=== PATIENT | male | born 1945 | race Caucasian/White ===

== ENCOUNTER 2018-06-19 18:11 | Outpatient (REF) | payer OTHER, SELFPAY | END 2018-06-19 18:31 | LOC: NCHCN 18:11 | PROVIDERS: PCP Family Medicine; Visit Provider Physician Assistant Medical | DX: R35.0 Frequency of micturition (principal); N40.0 Benign prostatic hyperplasia without lower urinary tract symptoms | CPT/HCPCS: 87086 ==

== ENCOUNTER 2018-12-30 08:44 | Outpatient (REF) | payer OTHER, SELFPAY ==
[2018-12-30 21:05] LABS: Anion Gap 6.4 mmol/L (3-11); BUN 33 mg/dL (7-18); CO2 31.6 mmol/L (21.0-32.0); CREATININE 1.23 mg/dL (0.70-1.30); Calcium 9.2 mg/dL (8.5-10.1); Chloride 104 mmol/L (98-107); Estimated GFR 57.68 (mL/min/1.73m2); Glucose 113 mg/dL (70-100); Sodium 142 mmol/L (136-145)
== END 2018-12-30 09:04 ==
LOC: NCHCN 08:44
PROVIDERS: PCP Family Medicine; Visit Provider Physician Assistant Medical
DX: I10 Essential (primary) hypertension (principal)
CPT/HCPCS: 80048

== ENCOUNTER 2019-05-26 12:35 | Outpatient (REF) | payer OTHER, SELFPAY ==
[2019-05-26 20:15] LABS: BUN 34 mg/dL (7-18); CREATININE 1.19 mg/dL (0.70-1.30); Chloride 106 mmol/L (98-107); Estimated GFR 59.76 (mL/min/1.73m2); Glucose 90 mg/dL (70-100); Potassium 4.3 mmol/L (3.5-5.1); Sodium 144 mmol/L (136-145)
[2019-05-28 11:23] LABS: PSA, Diagnostic 11.6 ng/ml (0-6.5)
== END 2019-05-26 12:55 ==
LOC: NCHCN 12:35
PROVIDERS: PCP Family Medicine; Visit Provider Nurse Practitioner Family
DX: N40.1 Benign prostatic hyperplasia with lower urinary tract symptoms (principal); I10 Essential (primary) hypertension
CPT/HCPCS: 80048; 84153

== ENCOUNTER 2020-02-29 10:22 | Outpatient (REF) | payer OTHER, SELFPAY | END 2020-02-29 10:42 | LOC: NCHCN 10:22 | PROVIDERS: PCP Family Medicine; Visit Provider Nurse Practitioner Family | DX: R31.9 Hematuria, unspecified (principal) | CPT/HCPCS: 87086 ==

== ENCOUNTER 2020-08-09 11:16 | Outpatient (REF) | payer OTHER, SELFPAY ==
[2020-08-10 19:13] LABS: PSA, Diagnostic 6.6 ng/mL (0.0-6.5)
== END 2020-08-09 11:36 ==
LOC: LBN 11:16
PROVIDERS: PCP Family Medicine; Visit Provider Urology
DX: R97.20 Elevated prostate specific antigen [PSA] (principal)
CPT/HCPCS: 84153

== ENCOUNTER 2020-08-15 21:00 | Outpatient (REF) | payer OTHER, SELFPAY | END 2020-08-15 21:20 | LOC: NCHCN 21:00 | PROVIDERS: PCP Family Medicine; Visit Provider Physician Assistant | DX: R31.9 Hematuria, unspecified (principal) | CPT/HCPCS: 87077; 87086; 87186 ==

== ENCOUNTER 2021-03-06 14:17 | Outpatient (REF) | payer OTHER, SELFPAY ==
[2021-03-06 18:46] LABS: Abs Immature Grans 0.03 10^3/uL (0.0-0.06); Absolute Basophil Count 0.05 10^3/uL (0.0-0.2); Absolute Eosinophil Count 0.31 10^3/uL (0.0-0.7); Absolute Lymphocyte Count 1.47 10^3/uL (1.2-3.4); Absolute Neutrophil Count 4.48 10^3/uL (1.2-6.7); Basophils % 0.7; Eosinophils % 4.5; HCT 48.5 % (40.0-50.0); HGB 16.4 g/dL (13.5-17.5); Immature Grans % 0.4; Lymphocytes % 21.5; MCH 30.3 pg (27.0-33.0); MCHC 33.8 % (32.0-36.0); MCV 89.5 fL (80-95); MPV 9.2 fL (8.0-11.0); Monocytes % 7.3; Neutrophils % 65.6; Nucleated RBC 0 %; Platelet Count 234 10^3/uL (130-400); RBC 5.42 10^6/uL (4.36-5.78); RDW 13.7 % (11.8-14.1); RDW-SD 45.3 fL; WBC 6.84 10^3/uL (4.4-10.8)
[2021-03-06 18:58] LABS: BUN 29 mg/dL (7-18); CREATININE 1.1 mg/dL (0.70-1.30); Calcium 9.1 mg/dL (8.5-10.1); Chloride 106 mmol/L (98-107); Glucose 144 mg/dL (74-106); LDL CHOLESTEROL 134 mg/dL (<100); Potassium 3.8 mmol/L (3.5-5.1); Sodium 144 mmol/L (136-145)
== END 2021-03-06 14:18 | disposition home or self-care (01) ==
LOC: NCHCN 14:17
PROVIDERS: PCP Family Medicine; Visit Provider Physician Assistant
DX: I10 Essential (primary) hypertension (principal)
CPT/HCPCS: 80048; 83721; 85025

== ENCOUNTER 2022-03-20 16:17 | Outpatient (REF) | payer OTHER, SELFPAY ==
[2022-03-20 19:26] LABS: BUN 29 mg/dL (7-18); CREATININE 1.2 mg/dL (0.70-1.30); Calcium 9.4 mg/dL (8.5-10.1); Chloride 103 mmol/L (98-107); Estimated GFR 58.71 (mL/min/1.73m2); Glucose 109 mg/dL (74-106); Potassium 4.1 mmol/L (3.5-5.1); Sodium 141 mmol/L (136-145)
== END 2022-03-20 16:18 | disposition home or self-care (01) ==
LOC: NCHCN 16:17
PROVIDERS: PCP Family Medicine; Visit Provider Physician Assistant
DX: I10 Essential (primary) hypertension (principal)
CPT/HCPCS: 80048

== ENCOUNTER 2023-03-21 11:10 | Outpatient (REF) | payer OTHER, SELFPAY ==
[2023-03-21 20:31] LABS: ALT 25 U/L (16-63); AST 23 U/L (15-37); Albumin 3.5 g/dL (3.4-5.0); Alkaline Phosphatase 56 U/L (46-116); Anion Gap 5.6 mmol/L (3-11); BUN 29 mg/dL (7-18); Bilirubin, Total 0.4 mg/dL (0.2-1.0); CO2 30.4 mmol/L (21.0-32.0); CREATININE 1.3 mg/dL (0.70-1.30); Calcium 9.7 mg/dL (8.5-10.1); Chloride 106 mmol/L (98-107); Estimated GFR 56.23 (mL/min/1.73m2); Glucose 104 mg/dL (74-106); Sodium 142 mmol/L (136-145); Total Protein 6.6 g/dL (6.4-8.2)
== END 2023-03-21 11:11 | disposition home or self-care (01) ==
LOC: NCHCN 11:10
PROVIDERS: PCP Family Medicine; Visit Provider Physician Assistant
DX: I10 Essential (primary) hypertension (principal)
CPT/HCPCS: 80053

== ENCOUNTER 2023-06-13 10:19 | Day surgery (SDC) | payer MEDICARE, SELFPAY ==
--- NOTE | 2023-06-13 06:56 | W.PREOPHP ---
Assessment and Plan Assessment and plan (1) Nuclear age-related cataract, left eye: Status: Acute Assessment and plan: Assessment: Visually significant cataract of the left eye. Plan: Cataract extraction with lens implantation of the left eye. (2) Cortical age-related cataract, left eye: Status: Acute Assessment and plan: Assessment: Visually significant cataract of the left eye. Plan: Cataract extraction with lens implantation of the left eye. (3) Primary open angle glaucoma (POAG) of left eye, mild stage: Status: Acute Assessment and plan: Assessment: Primary open-angle glaucoma, mild stage, left eye. Plan: Minimally invasive glaucoma surgery at the time of cataract surgery of the left eye. History of Present Illness History of Present Illness Chief Complaint: Progressive decreased vision and primary open angle glaucoma, left eye Narrative: The patient is a 77-year-old male with history of progressive decreased vision in both eyes at both distance and near. He has worn glasses since age 10 and takes them off to read due to his myopia. He notes significant difficulty with blurred vision while reading, and also with distance vision while driving his tractor. He has difficulty with significant glare at night and on bright su days. He has a history of mild stage primary open-angle glaucoma, treated with 1 medication. Review of Systems All systems reviewed & are unremarkable except as noted in HPI and below PFSH All Active Problems (Updated 06/13/23 @ 10:39 by Abdi Shine) Nuclear age-related cataract, left eye (Acute) Cortical age-related cataract, left eye (Acute) Primary open angle glaucoma (POAG) of left eye, mild stage (Acute) Medical History (Updated 06/13/23 @ 10:39 by Abdi Shine) Asthma Depression HTN (hypertension) Hypertrophy of prostate with urinary obstruction Surgical History Tonsillectomy and adenoidectomy Family History Father Carcinoma of prostate Social History Smoking/Tobacco Use Status: Never Smoking risk assessment performed?: Yes Alcohol Intake: current Alcohol Intake frequency: 0-2 drinks per day Alcohol type: wine Substance use type: does not use Housing: house Additional Social history: unable to assess [facility] Allergies and Home Medications Allergies Allergy/AdvReac Type Severity Reaction Status Date / Time tetracycline [Tetracycline] Allergy Severe Other (See Verified 06/13/23 10:39 Comment) indomethacin [From Indocin] Allergy Mild Verified 06/13/23 10:39 indomethacin sodium Allergy Mild Other (See Verified 06/13/23 10:39 [From Indocin] Comment) Home Medications Medication Instructions Recorded Confirmed Type finasteride 5 mg tablet 5 mg PO DAILY 06/12/23 06/13/23 History latanoprost 0.005 % eye drops 1 drp ophthalmic (eye) HS 06/12/23 06/13/23 History losartan 50 mg tablet 50 mg PO DAILY 06/12/23 06/13/23 History methenamine hippurate 1 gram tablet 1 g PO BID 06/12/23 06/13/23 History omeprazole 20 mg capsule,delayed 20 mg PO DAILY 06/12/23 06/13/23 History release Exam Eyes Other: Most recent ocular examination is significant for corrected visual acuity of 20/25 OD, 20/30 OS. Intraocular pressure is 20 in each eye. Extract motility is normal. Slit-lamp examination reveals pupils dilating to 7 mm OU. Mild cortical cataract OU. Moderate nuclear sclerotic cataract OU. Dilated funduscopic examination reveals disc cupping of 0.7 OD 0.6 OS with normal vessels, macula, peripheral retina and vitreous. Resp Auscultation: clear to auscultation bilaterally Cardio Rate: regular rate Rhythm: regular rhythm
[2023-06-13 10:43] VITALS: BP 171/74; PULSE 62; RESP 16; TEMP 36.3; O2SAT 98
[2023-06-13] MEDS: Tropicam./Phenyleph. (1/2.5%) 5 ML BTL OS ×3 (10:50→11:05)
--- NOTE | 2023-06-13 10:53 | ANES.PREOP_ITS ---
General Info Date of Service Date Performed: 06/13/23 Height: 5 ft 4 in Weight: 56.6 kg Body Mass Index (BMI): 21.4 Surgical Procedure: Operation Date: 06/13/23 13:40 Proposed Procedure Side Surgeon p Cataract Extraction with IOL Implant w/Glaucoma Stent Left Boris Thomas MD Meds Allergies and Home Medications Allergies Allergy/AdvReac Type Severity Reaction Status Date / Time tetracycline [Tetracycline] Allergy Severe Other (See Verified 06/13/23 10:39 Comment) indomethacin [From Indocin] Allergy Mild Verified 06/13/23 10:39 indomethacin sodium Allergy Mild Other (See Verified 06/13/23 10:39 [From Indocin] Comment) Home Medication Medication Instructions Recorded finasteride 5 mg tablet 5 mg PO DAILY 06/12/23 latanoprost 0.005 % eye drops 1 drp ophthalmic (eye) HS 06/12/23 losartan 50 mg tablet 50 mg PO DAILY 06/12/23 methenamine hippurate 1 gram tablet 1 g PO BID 06/12/23 omeprazole 20 mg capsule,delayed 20 mg PO DAILY 06/12/23 release Current Visit Medications: Current Medications Generic Name Dose Route Start Last Admin Trade Name Freq PRN Reason Stop Dose Admin Acetaminophen 1,000 mg 06/13/23 06:00 Acetaminophen 500 Mg Tab PO 07/13/23 05:59 Q4H PRN PRN Balanced Salt Solution 500 ml 06/13/23 06:00 Balanced Salt Soln.-Plus 500 Ml Bag OP 07/13/23 05:59 DIRECTED ZOFIA Miscellaneous Medication 0 ml 06/13/23 06:00 Prednisolone 1%, Moxifloxacin 0.5%, Nepafenac 0.1% 5ml Btl OS 07/13/23 05:59 DIRECTED ZOFIA Miscellaneous Medication 0 ml 06/13/23 06:00 06/13/23 10:50 Tropicam./Phenyleph. (1/2.5%) 5 Ml Btl OS 07/13/23 05:59 1 drp DIRECTED ZOFIA Administration Tetracaine HCl 0 ml 06/13/23 06:00 Tetracaine 0.5% 4 Ml Btl OS 07/13/23 05:59 DIRECTED ZOFIA PFSH Active Problems Active Problems: Problem Status Onset Code Nuclear age-related cataract, left eye H25.12 Cortical age-related cataract, left eye H25.012 Primary open angle glaucoma (POAG) of left eye, mild stage H40.1121 Medical History Medical History (Updated 06/13/23 @ 10:39 by Abdi Shine) Asthma Depression HTN (hypertension) Hypertrophy of prostate with urinary obstruction Surgical History Surgical History Tonsillectomy and adenoidectomy Tobacco Smoking/Tobacco Use Status: Never Alcohol Alcohol Intake: current Alcohol intake frequency: 0-2 drinks per day Alcohol type: wine Substance Use Substance use type: does not use Vital Signs and Lab Results Vital Signs Most Recent Vital Signs in EMR: Most Recent Vital Signs Temp Pulse Resp BP Pulse Ox 36.3 C L 62 16 171/74 H 98 06/13/23 10:43 06/13/23 10:43 06/13/23 10:43 06/13/23 10:43 06/13/23 10:43 Lab Results Blood Type / Crossmatch: No Data to Display Complete Blood Count: No Data to Display Complete Metabolic Panel: 2 No Data to Display Liver Function Panel: No Data to Display Coagulation Panel: No Data to Display Cardiac Panel: No Data to Display Arterial Blood Gas: No Data to Display Venous Blood Gas: No Data to Display Pancreas Panel: No Data to Display Thyroid Panel: No Data to Display Infectious Disease: No Data to Display Blood Cultures: No Data to Display Toxicology Panel: No Data to Display Anesthesia Assessment and Plan Anesthesia History Personal History: No History of Anesthesia Complications Family History: No Family History of Anesthesia Complications Exercise Tolerance Exercise Tolerance: Metabolic Equivalents>4 Pertinent Negatives Pertinent Negatives: No Symptoms of GERD and No Major Cardiovascular Symptoms or Complaints Cardiac & Pulmonary Exam Cardiac Exam: Normal S1/S2 Heart Sounds Pulmonary Exam: Clear Bilateral Breath Sounds Implantable Cardiac Device Does patient have a Pacemaker or an ICD?: No Airway Exam Known Difficult Airway: No Mallampati Class: 1 Mouth Opening: Normal (> 3cm) Thyromental Distance: Greater than 3 cm Neck Range of Motion: Full ROM Neck Circumference: Normal Teeth Condition: Normal Dentition ASA Classification ASA Score: ASA 2 Emergency Case?: No NPO Status NPO Status: NPO Clears >2 hours, Solids >8 hours Anesthesia Plan Resuscitation Status: DNR Maintained Throughout Perioperative Period Anesthesia Technique: MAC Anesthesia Airway Planned: Natural Airway Monitors Used: Standard Monitors
[2023-06-13 10:55] VITALS: BMI 21.4
[2023-06-13] MEDS: Balanced Salt Soln.-PLUS 500 ML BAG OP (12:08)
[2023-06-13] MEDS: Tetracaine 0.5% 4 ML BTL OS (12:09)
[2023-06-13] MEDS: Duovisc Viscoelastic System EACH 1 EACH (12:09)
[2023-06-13] MEDS: Lidocaine 1% Pres-Free 5 ML VIAL (12:10)
[2023-06-13] MEDS: Trypan Blue 0.06% 0.5 ML SYR (12:11)
[2023-06-13] MEDS: Povidone-Iodine Ophth 30 ML BTL (12:11)
[2023-06-13] MEDS: Phenylephrine/Lidocaine (15/10) MG/ML 1 ML VIAL (12:11)
[2023-06-13 12:41] VITALS: BP 178/87; PULSE 67; RESP 18; TEMP 36.8; O2SAT 99
--- NOTE | 2023-06-13 12:42 | W.PM.DSUDISC ---
Date of service: 06/13/23 Time of Service: 12:42 Discharge Plan Disposition Patient Disposition: Home Discharge Details Attending Provider: Boris Thomas Primary Care Provider: Briana Rodas Home Meds and New Rx's Prescriptions: No Action losartan 50 mg tablet 50 mg PO DAILY Patient Comments: TAKE ONE TABLET BY MOUTH EVERY DAY latanoprost 0.005 % drops 1 drp ophthalmic (eye) HS Patient Comments: INSTILL ONE DROP IN EACH EYE AT BEDTIME methenamine hippurate 1 gram tablet 1 g PO BID Patient Comments: TAKE ONE TABLET BY MOUTH TWICE A DAY finasteride 5 mg tablet 5 mg PO DAILY Patient Comments: TAKE ONE TABLET BY MOUTH EVERY DAY omeprazole 20 mg capsule,delayed release(DR/EC) 20 mg PO DAILY Discharge Instructions Stand Alone Forms: Post-op Topical Cataract, Ho Ganey (DSU) Discharge Orders Discharge Orders: Discharge Order (Routine); Ordered 06/13/23 Ordered By: Boris Thomas DS: Diagnosis Discharge Diagnosis (1) Nuclear age-related cataract, left eye: Status: Resolved (2) Cortical age-related cataract, left eye: Status: Resolved (3) Primary open angle glaucoma (POAG) of left eye, mild stage: Status: Chronic
--- NOTE | 2023-06-13 12:43 | ROE_ITS ---
Date of service: 06/13/23 Time of Service: 12:43 Operative Note Operative Note DATE OF PROCEDURE: 06/13/23 PRE-OP DIAGNOSIS: Nuclear/cortical cataract, left eye Primary open-angle glaucoma, mild stage, left eye PROCEDURE: 1. Cataract extraction using phacoemulsification with intraocular lens implant, left eye 2. Insertion of anterior segment aqueous drainage device (Glaukos iStent inject ) into trabecular meshwork, left eye SURGEON: Boris Thomas ANESTHESIA TYPE: Local By Surgeon and MAC Refer to Anesthesia Record ESTIMATED BLOOD LOSS: 0 PATHOLOGY: none sent COMPLICATIONS: None Patient was transported to: same day Patient's condition: stable Implants: 1. Stanley and Stanley Vision Tecnis Eyhance DIB00 intraocular lens 2. Glaukos iStent inject trabecular micro-bypass stent Indications: 1. Progressive decreased vision due to cataract, left eye 2. Primary open angle glaucoma, left eye, mild Procedure Description: CATARACT SURGERY OPERATIVE REPORT PREOPERATIVE DIAGNOSIS: Nuclear/cortical cataract, left eye Primary open-angle glaucoma, mild stage, left eye POSTOPERATIVE DIAGNOSIS: Same OPERATION: 1. Cataract extraction using phacoemulsification with posterior chamber intraocular lens implant, left eye. 2. Insertion of anterior segment aqueous drainage device (Glaukos iStent inject ) into trabecular meshwork, left eye IOL: IOL Dining Car Hop/Model: Stanley and Stanley Vision Tecnis Eyhance DIB00 IOL Power: + 10.5 diopters IOL Serial Number: [id number] Optic Diameter: 6.0mm Haptic/Overall Diameter: 13.0mm PHACO INFO: Josep Lagoaurion Vision System with OZil and Active Fluidics Cumulative Dispersed Energy (CDE): 7.61 seconds TRABECULAR MICRO-BYPASS STENT INFO: Glaukos iStent inject x 1 Reference Number: [id number] Serial Number: [id number] SURGEON: Boris Thomas MD, DYAN ANESTHESIA: Monitored Anesthesia Care (MAC), with local sub-tenon's anesthetic infiltration COMPLICATIONS: None SPECIMENS: None INDICATIONS FOR PROCEDURE: The patient is a 78-year-old male with history of high myopia who has developed a symptomatic nuclear/cortical cataract in the left eye. He also has a history of primary open-angle glaucoma, mild stage, controlled on 1 medication. The option of cataract surgery was offered to the patient and he wished to proceed. In addition, the option of microtrabecular bypass stent for management of his glaucoma was offered as well and he wished to proceed. See office notes for detailed information. PROCEDURE: The correct surgical eye was identified and marked as the left eye and the pupil was dilated in the preoperative area using mydriatics and cycloplegics. The dilated pupil size was 8.0 mm. The patient was brought to [facility] operating room where cardiopulmonary monitoring was instituted and surgical time-out was performed, confirming the correct operative eye and IOL power. Topical anesthesia was administered and ophthalmic povidone-iodine 5% was instilled into the conjunctival fornices. The gabo-ocular area was prepped with Betadine 10% solution and draped in the usual sterile fashion for intraocular surgery, including an aperture drape. A Tegaderm transparent film dressing was cut in half and used to cover the lashes and lid margins. Care was taken to sequester the lashes and lid margins under the Tegaderm dressing. A lid speculum was placed between the lids of the operative eye and the Josep LuxOR Revalia operating microscope was maneuvered into position. Sadaf scissors were then used to make a conjunctival buttonhole approximately 6mm posterior to the limbus in the inferonasal quadrant. Blunt dissection was carried out to expose bare sclera, and a blunt-tipped sub-tenon?s anesthesia cannula was introduced and passed posteriorly along the globe where non- preserved plain lidocaine was injected into posterior sub-Tenon?s space. A sideport knife was used to make a paracentesis port superior/superiortemporally. Intraocular phenylephrine/lidocaine was injected into the anterior chamber. The anterior chamber was then filled with viscoelastic. A keratome knife was used to construct a clear corneal tunnel extending 2.0mm into clear cornea. . A flap was raised on the anterior capsule and capsulorhexis forceps were used to complete a continuous curvilinear capsulorhexis of 5.0 mm. The anterior chamber was noted to be quite deep with a very thin anterior capsule Balanced salt solution was then used to perform cortical cleaving hydrodissection and nuclear hydrodelineation until the lens could be freely rotated within the capsular bag. The lens nucleus was then disassembled and removed within the capsular bag and iris plane using phacoemulsification. Residual cortical material was removed using the 45-degree angled silicone I/A tip with 0.3mm port. The posterior capsule was carefully polished to remove as much residual lens epithelial cells as safely possible. The capsular bag was then inflated and the anterior chamber deepened with viscoelastic. The lens implant described above was inserted into the capsular bag using the Stanley and Stanley Simplicity Injector. A Kuglen hook was used to dial the IOL into position. The anterior chamber was then slightly over-filled with viscoelastic. The microsope and the patient's head were tilted into the ideal position for viewing of the anterior chamber angle. Viscoelastic was placed on the cornea followed by a surgical gonionlens, and the anterior chamber angle landmarks were identified. The HackerEarth Infinite handpiece was introduced into the anterior chamber and the insertion sleeve was retracted once the injector was distal to the pupillary margin. The trocar was advanced through the central portion of the trabecular meshwork and into the back wall of Schlemm's canal in the superiornasal quadrant, with care taken to ensure the micro-insertion tube was perpendicular to the trabecular meshwork. The trabecular meshwork was lightly dimpled and the stent was injected without difficulty, a significant amount of heme reflux through the stent aperture was present. The angle was cleared with Healon Pro and a second stent was injected at the 10:30 position, but failed to seat completely. The trocar was re-engaged and re-implantation was unsuccessful, but a significant amount of heme was noted. The angle was cleared with Healon, and the stent was noted on the surface of the peripheral iris. The third stent was then injected at the 7:30 position, again with significant blood reflux, which was cleared with Healon. The stent appeared to be well positioned in the TM. . The microscope and the patients head were returned to the normal coaxial position. Viscoelatic was then removed from the anterior chamber using the I/A handpiece, as well at the free stent at the 10:30 position. During removal of viscoelastic from behind the IOL, the 7:30 stent came loose and rested on the surface of the IOL, where it was engaged and aspirated with the I/A handpiece. . The lens implant was noted to center nicely within the capsular bag. The incisions were stromally hydrated, and the anterior chamber was reformed using BSS. Then 0.5cc of moxifloxacin 1.0mg/ml were injected into the capsular bag and anterior chamber. The incisions were checked with a Weck spear and found to be secure. Several drops of ophthalmic povidone-iodine 5% were then applied to the eye followed by two drops of Imprimis combination prednisolone/moxifloxacin/nepafenac solution. The drapes were removed and a clear plastic protective eye shield was placed over the eye. The patient was then returned to [facility] Day Surgery in stable condition.
--- NOTE | 2023-06-13 13:08 | W.ANESPOSTOP ---
Postoperative Evaluation Date, Time and Location Date Performed: 06/13/23 Time Performed: 12:55 Patient Location: Day Surgery Unit Vital Signs Most Recent Imported Vital Signs: Most Recent Vital Signs Temp Pulse Resp BP Pulse Ox 36.8 C 67 18 178/87 H 99 06/13/23 12:41 06/13/23 12:41 06/13/23 12:41 06/13/23 12:41 06/13/23 12:41 Pain Score Most Recent Pain Score: Most Recent Pain Score Pain Level 0 06/13/23 12:41 Assessment Mental Status: Awake (Alert & Oriented to Patient Baseline) Airway and Respiratory Function: Patent airway with normal (patient baseline) respiratory exam Cardiovascular Function: Hemodynamically Stable Hydration Status: Adequately Hydrated Nausea & Vomiting: No Nausea or Vomiting Pain: Pt. Denies Any Pain Peripheral Nerve Block: Patient did not receive a nerve block
== END 2023-06-13 13:01 | disposition home or self-care (01) ==
PROVIDERS: PCP Physician Assistant; Visit Provider Ophthalmology
PROC: (CPT 66991; principal; 2023-06-13 13:30)
DX: H25.12 Age-related nuclear cataract, left eye (principal); H25.012 Cortical age-related cataract, left eye; H40.1121 Primary open-angle glaucoma, left eye, mild stage; I10 Essential (primary) hypertension
CPT/HCPCS: 66991; V2632

== ENCOUNTER 2023-06-27 10:54 | Day surgery (SDC) | payer MEDICARE, SELFPAY ==
[2023-06-27 11:00] VITALS: BP 190/86; PULSE 58; RESP 16; TEMP 36.5; O2SAT 99
[2023-06-27] MEDS: Tropicam./Phenyleph. (1/2.5%) 5 ML BTL OD ×3 (11:16→11:25)
--- NOTE | 2023-06-27 11:29 | ANES.PREOP_ITS ---
General Info Date of Service Date Performed: 06/27/23 Height: 5 ft 4 in Weight: 57.4 kg Body Mass Index (BMI): 21.7 Surgical Procedure: Operation Date: 06/27/23 14:55 Proposed Procedure Side Surgeon p Cataract Extraction with IOL Implant w/Glaucoma Stent Right Boris Thomas MD Meds Allergies and Home Medications Allergies Allergy/AdvReac Type Severity Reaction Status Date / Time tetracycline [Tetracycline] Allergy Severe Other (See Verified 06/27/23 11:14 Comment) indomethacin [From Indocin] Allergy Mild Verified 06/27/23 11:14 Home Medication Medication Instructions Recorded finasteride 5 mg tablet 5 mg PO DAILY 06/12/23 latanoprost 0.005 % eye drops 1 drp ophthalmic (eye) HS 06/12/23 losartan 50 mg tablet 50 mg PO DAILY 06/12/23 methenamine hippurate 1 gram tablet 1 g PO BID 06/12/23 omeprazole 20 mg capsule,delayed 20 mg PO DAILY 06/12/23 release Current Visit Medications: Current Medications Generic Name Dose Route Start Last Admin Trade Name Freq PRN Reason Stop Dose Admin Acetaminophen 1,000 mg 06/27/23 06:00 Acetaminophen 500 Mg Tab PO 07/27/23 05:59 Q4H PRN PRN Balanced Salt Solution 500 ml 06/27/23 06:00 Balanced Salt Soln.-Plus 500 Ml Bag OP 07/27/23 05:59 DIRECTED [facility] Miscellaneous Medication 0 ml 06/27/23 06:00 Prednisolone 1%, Moxifloxacin 0.5%, Nepafenac 0.1% 5ml Btl OD 07/27/23 05:59 DIRECTED ZOFIA Miscellaneous Medication 0 ml 06/27/23 06:00 06/27/23 11:25 Tropicam./Phenyleph. (1/2.5%) 5 Ml Btl OD 07/27/23 05:59 1 drp DIRECTED ZOFIA Administration Tetracaine HCl 0 ml 06/27/23 06:00 Tetracaine 0.5% 4 Ml Btl OD 07/27/23 05:59 DIRECTED ZOFIA PFSH Active Problems Active Problems: Problem Status Onset Code Cortical age-related cataract, right eye H25.011 Nuclear age-related cataract, right eye H25.11 Primary open angle glaucoma (POAG) of right eye, mild stage H40.1111 Nuclear age-related cataract, left eye H25.12 Cortical age-related cataract, left eye H25.012 Primary open angle glaucoma (POAG) of left eye, mild stage H40.1121 Medical History Medical History HTN (hypertension) Depression Asthma Hypertrophy of prostate with urinary obstruction Surgical History Surgical History Tonsillectomy and adenoidectomy Tobacco Smoking/Tobacco Use Status: Never Alcohol Alcohol Intake: current Alcohol intake frequency: 0-2 drinks per day Alcohol type: wine Substance Use Substance use type: does not use Vital Signs and Lab Results Vital Signs Most Recent Vital Signs in EMR: Most Recent Vital Signs Temp Pulse Resp BP Pulse Ox 36.5 C 58 L 16 190/86 H 99 06/27/23 11:00 06/27/23 11:00 06/27/23 11:00 06/27/23 11:00 06/27/23 11:00 Lab Results Blood Type / Crossmatch: No Data to Display Complete Blood Count: No Data to Display Complete Metabolic Panel: No Data to Display Liver Function Panel: No Data to Display Coagulation Panel: No Data to Display Cardiac Panel: No Data to Display Arterial Blood Gas: No Data to Display Venous Blood Gas: No Data to Display Pancreas Panel: No Data to Display Thyroid Panel: No Data to Display Infectious Disease: No Data to Display Blood Cultures: No Data to Display Toxicology Panel: No Data to Display Anesthesia Assessment and Plan Anesthesia History Personal History: No History of Anesthesia Complications Family History: No Family History of Anesthesia Complications Exercise Tolerance Exercise Tolerance: Metabolic Equivalents>4 Pertinent Negatives Pertinent Negatives: No Major Cardiovascular Symptoms or Complaints and No Major Pulmonary Symptoms or Complaints Cardiac & Pulmonary Exam Cardiac Exam: Normal S1/S2 Heart Sounds Pulmonary Exam: Clear Bilateral Breath Sounds Implantable Cardiac Device Does patient have a Pacemaker or an ICD?: No Airway Exam Known Difficult Airway: No Mallampati Class: 1 Mouth Opening: Normal (> 3cm) Thyromental Distance: Greater than 3 cm Neck Range of Motion: Full ROM Neck Circumference: Normal Teeth Condition: Normal Dentition ASA Classification ASA Score: ASA 2 Emergency Case?: No NPO Status NPO Status: NPO Clears >2 hours, Solids >8 hours Anesthesia Plan Resuscitation Status: DNR Maintained Throughout Perioperative Period Anesthesia Technique: MAC Anesthesia Airway Planned: Natural Airway Monitors Used: Standard Monitors
[2023-06-27 11:32] VITALS: BMI 21.7
[2023-06-27] MEDS: Balanced Salt Soln.-PLUS 500 ML BAG OP (12:47)
[2023-06-27] MEDS: Tetracaine 0.5% 4 ML BTL OD (12:48)
[2023-06-27] MEDS: Lidocaine 1% Pres-Free 5 ML VIAL (12:49)
[2023-06-27] MEDS: Duovisc Viscoelastic System EACH 1 EACH (12:49)
[2023-06-27] MEDS: Phenylephrine/Lidocaine (15/10) MG/ML 1 ML VIAL (12:50)
[2023-06-27] MEDS: Povidone-Iodine Ophth 30 ML BTL (12:51)
[2023-06-27 13:15] VITALS: BP 190/88; PULSE 67; RESP 18; TEMP 36.6; O2SAT 100
--- NOTE | 2023-06-27 13:18 | ROE_ITS ---
Date of service: 06/27/23 Time of Service: 13:19 Operative Note Operative Note DATE OF PROCEDURE: 06/27/23 PRE-OP DIAGNOSIS: Nuclear/cortical cataract, right eye Primary open-angle glaucoma, right eye, mild stage POST-OP DIAGNOSIS: same PROCEDURE: 1. Cataract extraction using phacoemulsification with intraocular lens implant, right eye 2. Insertion of multiple anterior segment aqueous drainage devices (Glaukos iStent inject) into trabecular meshwork, right eye SURGEON: Boris Thomas ANESTHESIA TYPE: Local By Surgeon and MAC Refer to Anesthesia Record PATHOLOGY: none sent COMPLICATIONS: None Patient was transported to: same day Patient's condition: stable Implants: 1. Stanley and Stanley Vision Tecnis Eyhance DIB00 intraocular lens 2. Glaukos iStent inject trabecular micro-bypass stents Indications: 1. Progressive decreased vision due to cataract, right eye 2. Open angle glaucoma, right eye Procedure Description: CATARACT SURGERY OPERATIVE REPORT PREOPERATIVE DIAGNOSIS: Nuclear/cortical cataract, right eye primary open-angle glaucoma, right eye, mild stage POSTOPERATIVE DIAGNOSIS: Same OPERATION: 1. Cataract extraction using phacoemulsification with posterior chamber intraocular lens implant, right eye. 2. Insertion of multiple anterior segment aqueous drainage devices (Glaukos iStent inject) into trabecular meshwork, right eye IOL: IOL Features Editor/Model: Stanley and Stanley Vision Tecnis Eyhance DIB00 IOL Power: + 11.5 diopters IOL Serial Number: [id number] Optic Diameter: 6.0mm Haptic/Overall Diameter: 13.0mm PHACO INFO: Josep Centurion Vision System with OZil and Active Fluidics Cumulative Dispersed Energy (CDE): 7.11 seconds TRABECULAR MICRO-BYPASS STENT INFO: Glaukos iStent inject x 3 Reference Number: [id number] Serial Number: [id number] SURGEON: Boris Thomas MD, DYAN ANESTHESIA: Monitored Anesthesia Care (MAC), with local sub-tenon's anesthetic infiltration COMPLICATIONS: None SPECIMENS: None INDICATIONS FOR PROCEDURE: The patient is a 78-year-old male with history of myopia and mild stage primary open-angle glaucoma who has developed symptomatic bilateral nuclear and cortical cataract. He is significantly symptomatic that he desires cataract surgery and attempt to improve and maximize his vision. In addition, microtrabecular bypass stent at the time of cataract surgery is planned. He has already undergone cataract surgery with glaucoma stent procedure in the left eye and is doing well postoperatively. See office notes for detailed information. PROCEDURE: The correct surgical eye was identified and marked as the right eye and the pupil was dilated in the preoperative area using mydriatics and cycloplegics. The dilated pupil size was 8.0 mm. The patient elected to proceed without oral sedation. The patient was brought to the operating room where cardiopulmonary monitoring was instituted and surgical time-out was performed, confirming the correct operative eye and IOL power. Topical anesthesia was administered and ophthalmic povidone-iodine 5% was instilled into the conjunctival fornices. The gabo-ocular area was prepped with Betadine 10% solution and draped in the usual sterile fashion for intraocular surgery, including an aperture drape. A Tegaderm transparent film dressing was cut in half and used to cover the lashes and lid margins. Care was taken to sequester the lashes and lid margins under the Tegaderm dressing. A lid speculum was placed between the lids of the operative eye and the Josep LuxOR Revalia operating microscope was maneuvered into position. Sadaf scissors were then used to make a conjunctival buttonhole approximately 6mm posterior to the limbus in the inferonasal quadrant. Blunt dissection was carried out to expose bare sclera, and a blunt-tipped sub-tenon?s anesthesia cannula was introduced and passed posteriorly along the globe where non- preserved plain lidocaine was injected into posterior sub-Tenon?s space. A sideport knife was used to make a paracentesis port. VisionBlue was injected into the anterior chamber and allowed to sit for 20 seconds. Intraocular phenylephrine/lidocaine was injected into the anterior chamber. The anterior chamber was then filled with viscoelastic. A keratome knife was used to construct a 2-plane clear corneal tunnel extending 2.0mm into clear cornea. A flap was raised on the anterior capsule and capsulorhexis forceps were used to complete a continuous curvilinear capsulorhexis of 5.0 mm. The anterior chamber was noted to be quite deep with a very thin capsule. Balanced salt solution was then used to perform cortical cleaving hydrodissection and nuclear hydrodelineation until the lens could be freely rotated within the capsular bag. The lens nucleus was then disassembled and removed within the capsular bag and iris plane using phacoemulsification. Residual cortical material was removed using the irrigation/aspiration handpiece. The posterior capsule was carefully polished to remove as much residual lens epithelial cells as safely possible. The capsular bag was then inflated and the anterior chamber deepened with cohesive viscoelastic. The lens implant described above was inserted into the capsular bag using the Stanley and Stanley Simplicity Injector. A Kuglen hook was used to dial the IOL into position. The anterior chamber was then slightly over-filled with viscoelastic. The microsope and the patient's head were tilted into the ideal position for viewing of the anterior chamber angle. Viscoelastic was placed on the cornea followed by a surgical gonionlens, and the anterior chamber angle landmarks were identified. The Personal Cell Sciences iStent Inifinite handpiece was introduced into the a nterior chamber and the insertion sleeve was retracted once the injector was distal to the pupillary margin. The trocar was advanced through the central portion of the trabecular meshwork and into the back wall of Schlemm's canal in the inferonasal quadrant, with care taken to ensure the micro-insertion tube was perpendicular to the trabecular meshwork. The trabecular meshwork was lightly dimpled and the stent was injected without difficulty. The same procedure was then performed in the superiornasal quadrant. A third stent was then injected at the 3 o'clock position. A moderate amount of hemorrhage presented through all 3 stent apertures. The view was cleared with additional viscoelastic. The stents were then examined and noted to be in good position within the trabecular meshwork. The microscope and the patients head were returned to the normal coaxial position. Viscoelatic was then removed from the anterior chamber using the I/A handpiece. The lens implant was noted to center nicely within the capsular bag. The incisions were stromally hydrated, and the anterior chamber was reformed using BSS. Then 0.5cc of moxifloxacin 1.0mg/ml were injected into the capsular bag and anterior chamber. The incisions were checked with a Weck spear and found to be secure. Several drops of ophthalmic povidone-iodine 5% were then applied to the eye followed by two drops of Imprimis combination prednisolone/moxifloxacin/nepafenac solution. The drapes were removed and a clear plastic protective eye shield was placed over the eye. The patient was then returned to Same Day Surgery in stable condition.
--- NOTE | 2023-06-27 13:18 | W.PM.DSUDISC ---
Date of service: 06/27/23 Time of Service: 13:18 Discharge Plan Disposition Patient Disposition: Home Discharge Details Attending Provider: Boris Thomas Primary Care Provider: Briana Rodas Home Meds and New Rx's Prescriptions: No Action losartan 50 mg tablet 50 mg PO DAILY Patient Comments: TAKE ONE TABLET BY MOUTH EVERY DAY latanoprost 0.005 % drops 1 drp ophthalmic (eye) HS Patient Comments: INSTILL ONE DROP IN EACH EYE AT BEDTIME methenamine hippurate 1 gram tablet 1 g PO BID Patient Comments: TAKE ONE TABLET BY MOUTH TWICE A DAY finasteride 5 mg tablet 5 mg PO DAILY Patient Comments: TAKE ONE TABLET BY MOUTH EVERY DAY omeprazole 20 mg capsule,delayed release(DR/EC) 20 mg PO DAILY Discharge Instructions Stand Alone Forms: Post-op Topical Cataract, Ho Gerardey (DSU) Discharge Orders Discharge Orders: Discharge Order (Routine); Ordered 06/27/23 Ordered By: Boris Thomas DS: Diagnosis Discharge Diagnosis (1) Cortical age-related cataract, right eye: Status: Resolved (2) Nuclear age-related cataract, right eye: Status: Resolved (3) Primary open angle glaucoma (POAG) of right eye, mild stage: Status: Chronic
--- NOTE | 2023-06-27 13:38 | W.ANESPOSTOP ---
Postoperative Evaluation Date, Time and Location Date Performed: 06/27/23 Time Performed: 13:22 Patient Location: Day Surgery Unit Vital Signs Most Recent Imported Vital Signs: Most Recent Vital Signs Temp Pulse Resp BP Pulse Ox 36.6 C 67 18 190/88 H 100 06/27/23 13:15 06/27/23 13:15 06/27/23 13:15 06/27/23 13:15 06/27/23 13:15 Pain Score Most Recent Pain Score: Most Recent Pain Score Pain Level 0 06/27/23 13:15 Assessment Mental Status: Awake (Alert & Oriented to Patient Baseline) Airway and Respiratory Function: Patent airway with normal (patient baseline) respiratory exam Cardiovascular Function: Hemodynamically Stable Hydration Status: Adequately Hydrated Nausea & Vomiting: No Nausea or Vomiting Pain: Pt. Denies Any Pain Peripheral Nerve Block: Patient did not receive a nerve block
== END 2023-06-27 12:40 | disposition home or self-care (01) ==
LOC: SUR 10:54
PROVIDERS: PCP Physician Assistant; Visit Provider Ophthalmology
PROC: (CPT 66991; principal; 2023-06-27 14:45)
DX: H25.011 Cortical age-related cataract, right eye (principal); H25.11 Age-related nuclear cataract, right eye; H40.1111 Primary open-angle glaucoma, right eye, mild stage; I10 Essential (primary) hypertension; Z98.42 Cataract extraction status, left eye
CPT/HCPCS: 66991; 00123; V2632

== ENCOUNTER 2024-03-24 10:15 | Outpatient (REF) | payer MEDICARE, SELFPAY ==
--- OUTSIDE RECORDS SUMMARY | 2024-03-24 10:18 | XMS_ITS | Continuity of Care Document ---
Author Organization [facility] Address [address] [place] [address] Care Team Providers Care Rubber Goods Tester Water Name Role Phone Briana Rodas Primary Care Physician [phone] Encounter [facility] Date(s): 10/31/22 - 10/31/[address] [address] Encounter Diagnosis Hydronephrosis of left kidney(Discharge Diagnosis) - 10/31/22 Discharge Disposition: Home or Self Care Attending Physician: Demar Braswell MD Admitting Physician: Demar Braswell MD Referring Physician: Demar Braswell MD Allergies, Adverse Reactions, Alerts Substance Reaction Severity Status tetracycline Moderate Active Indocin Moderate Active LEVI inhibitors Moderate Active Assessment and Plan Future Appointments Immunizations Given and Recorded Vaccine Date Status Refusal Reason influenza virus vaccine, live 06/09/21 Recorded influenza virus vaccine, inactivated 05/25/13 Jacob rded influenza virus vaccine, inactivated 07/27/12 Jacob rded influenza virus vaccine, inactivated 07/22/11 Jacob rded influenza virus vaccine, inactivated 06/29/10 Jacob rded zoster vaccine live 08/18/12 Recorded tetanus-diphth toxoids (Td) adult/adol 06/29/10 Re corded Medications Bactrim DS 800 mg-160 mg oral tablet PRN urinary discomfort, 0 Refill(s) Start Date: 10/01/22 Status: Ordered calcium carbonate 500 mg (elemental Ca 200 mg) oral tab, chewable 500 mg 1 tab, Chewed, Daily, 0 Refill(s) Start Date: 10/18/22 Status: Ordered flurazepam 15 mg oral capsule 15 mg = 1 cap, Oral, every day at bedtime, 0 Refill(s) Start Date: 10/18/22 Status: Ordered latanoprost 0.005% ophthalmic solution 1 drops, Eye-Both, every evening, # 2.5 mL, 0 Refill(s) Start Date: 10/18/22 Status: Ordered losartan 50 mg oral tablet 50 mg = 1 tab, Oral, Daily, # 90 tab, 0 Refill(s) Start Date: 10/18/22 Status: Ordered multivitamin adult, oral tablet 1 tab, Oral, Daily, # 30 tab, 0 Refill(s) Start Date: 10/17/22 Status: Ordered omeprazole 20 mg oral delayed release capsule 20 mg = 1 cap, Oral, Daily, # 90 cap, 0 Refill(s) Start Date: 10/18/22 Status: Ordered PARoxetine 10 mg oral tablet 10 mg = 1 tab, Oral, Daily, # 30 tab, 0 Refill(s) Start Date: 10/18/22 Status: Ordered Ventolin HFA 90 mcg/inh inhalation aerosol 2 puffs, Inhale, every 4 hr, PRN as needed for wheezing, # 8 g, 0 Refill(s) Start Date: 10/18/22 Status: Ordered Problem List Condition Confirmation Course Effective Dates Status Health St atus Informant 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
--- OUTSIDE RECORDS SUMMARY | 2024-03-24 10:18 | XMS_ITS | Continuity of Care Document ---
Author Organization [facility] Address [address] [place] [address] Care Team Providers Care Director Nursing Service Name Role Phone Briana Rodas Primary Care Physician Encounter [facility] Date(s): 09/11/22 - 09/11/[address] [address] Discharge Disposition: Home or Self Care Attending Physician: Demar Braswell MD Admitting Physician: Demar Braswell MD Referring Physician: Demar Braswell MD Assessment and Plan Future Appointments Immunizations Given and Recorded Vaccine Date Status Refusal Reason influenza virus vaccine, live 06/09/21 Recorded influenza virus vaccine, inactivated 05/25/13 Jacob rded influenza virus vaccine, inactivated 07/27/12 Jacob rded influenza virus vaccine, inactivated 07/22/11 Jacob rded influenza virus vaccine, inactivated 06/29/10 Jacob rded zoster vaccine live 08/18/12 Recorded tetanus-diphth toxoids (Td) adult/adol 06/29/10 Re corded Results Laboratory List Name Date PSA Diagnostic 09/11/22 Most recent to oldest [Reference Range]: 1 PSA Total Diagnostic [0.00-4.00 ng/mL] 1 2.01 ng/mL *HI* (09/11/22 12:24 PM) Social History Social History Type Response Sex Male Patient Care team information Personnel Name: Briana Rodas PA-C Address: Address: [address] [address]
--- OUTSIDE RECORDS SUMMARY | 2024-03-24 10:18 | XMS_ITS | Encounter Summary ---
Author Organization [facility] Address [address] [place] [address] Care Team Providers Care Hatchery Employee Name Role Phone Dennise Dewitt METER/RELAY TECHNICIAN Primary Care Provider [phone] Encounter Details Date Type Department Care Team (Latest Contact Info) Description 08/22/2020 Travel Social History Tobacco Use Types Packs/Day Years Used Date Smoking Tobacco: Former Smokeless Tobacco: Never Interpersonal Safety Answer Date Record ed Physically Hurt Never 04/09/2020 Verbally Threaten Not on file 04/09/2020 Sex and Gender Information Value Date Recorded Sex Assigned at Not on file Gender Identity Male 08/22/2020 19:10 EST Sexual Orientation Not on file COVID-19 Exposure Response Date Recorded In the last month, have you been in contact with someone who was confirmed or suspected to have Coronavirus / COVID-19? No / Unsure 08/22/2020 19:08 EST documented as of this encounter Functional Status Functional Status Response Date of Assess ment Because of a physical, menta l, or emotional condition, does this person have difficulty doing errands alone such as visiting a doctor's office or shopping? No 09/10/2016 Cognitive Status Response Date of Assessm ent Because of a physical, menta l, or emotional condition, does this person have serious difficulty concentrating, remembering, or making decisions? No 09/10/2016 documented as of this encounter Plan of Treatment Not on file documented as of this encounter Visit Diagnoses Not on filedocumented in this encounter Care Teams Hatchery Employee Relationship Specialty Start Date End Date Dennise Dewitt NP PCP - General 08/22/20 documented as of this encounter
--- OUTSIDE RECORDS SUMMARY | 2024-03-24 10:18 | XMS_ITS | Encounter Summary ---
Author Organization [facility] Address [address] [place] [address] Care Team Providers Care Factory Superintendent Name Role Phone Ramses Porter MD Primary Care Provider [phone] Reason for Visit * Reason Comments Follow-up FU MRI, BPH W/Obstru ction * Referral (Urgent) - Closed Specialty Diagnoses / Procedures Referred By Contac t Referred To Contact Urology Diagnoses BPH (benign prostatic hyperplasia) Complication of catheter Dennise Dewitt, SURGICAL ELASTIC KNITTER [address] [place] [address] You Webster MD [address] [place] [address] [place] [phone] Referral ID Status Reason Start Date Expiration Date Visits Re quested Visits Authorized [id number] Closed 1 1 Encounter Details Date Type Department Care Team (Late st Contact Info) Description 08/18/2019 10:30 EST Office Visit [facility] Urology - Main [place] [address] [place], [place] [address] You Webster MD [address] [facility] [address] [address] Retention, urine (Primary Dx) Social History Tobacco Use Types Packs/Day Years Used Date Smoking Tobacco: Former Smokeless Tobacco: Never Sex and Gender Information Value Date Recorded Sex Assigned at Not on file Gender Identity Male 08/22/2020 19:10 EST Sexual Orientation Not on file documented as of this encounter Functional Status [...] No 09/10/2016 documented as of this encounter Progress Notes * EleanorYou tyson - 08/18/2019 1030 EST This is a follow up visit. Van is a 74-year-old gentleman I saw about 2 years ago with a longstanding history of significant prostatic hypertrophy dating back to the time when Dr Gómez was here.He has been followed for urinary retention. 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 It has been over 15 years now that he has been performing intermittent catheteriz ation without significant difficulties. He has been catheterizing 4 times a day. When I saw him, werecommended a possible trial of finasteride, which he did try, but had erectile side effects and hehas not been taking this. He had imaging showing no upper tract concerns, but a very large prostatewith an intravesical prostatic component. He is following up today as he was having some increasing difficulty with the catheterization. He wound up switching from a 14-Bengali to a 12-Bengali straight catheter. This has been somewhat more difficult to pass, and he feels like he is running out of the catheter. Updated imaging was obtained and I reviewed this with Van and his . This was an MR of the pelvis. This shows a markedly enlarged gland measuring 10 x 7 x 6 cm, with signs of chronic bladder outlet obstruction. There is a mass-like projection extending into the bladder as well, which is likely a median lobe component. There is no other adenopathy and this does not comment on any high RADs lesions. His most recent PSA was elevated at 11. I reviewed his PSA history and when I saw him, it actually was as high as 22. He reports having several biopsies over the years, all of which have been negative for prostate cancer. Certainly, we discussed due to the PSA and his age, certainly prostate cancercould be an issue. However, he does not wish to further look into this at this time due to the prior negative history. After a long discussion, this would be a complex endoscopic or open procedure if he did in fact want to have intervention on his prostate. He would prefer not to have anything done surgically and therefore, I am going to have our nurses give him other options for catheters. He may benefit from a coude tip catheter or other suggestions to see if this can improve the ease of his cathing. I will see him back in a few weeks to check in, and schedule him for potential cystoscopy as well to evaluate the urethra. * Suyapa Bear RN - 08/18/2019 1030 EST Provided patient with both 12 Bengali and 14 khmer coloplast coude catheters to trial. I was supervised by Dr. Webster who was present and immediately available in the office suite. SUYAPA BEAR RN 08/18/2019 16:06 documented in this encounter Plan of Treatment Not on file documented as of this encounter Visit Diagnoses Diagnosis Retention, urine- Primary Retention of urine, unspecified documented in this encounter Care Teams Factory Superintendent Relationship Specialty Start Date End Date Ramses Porter MD [address] [place] [address] PCP - General 08/18/19 08/21/20 documented as of this encounter
--- OUTSIDE RECORDS SUMMARY | 2024-03-24 10:18 | XMS_ITS | Clinical Summary ---
Author Organization [facility] Address [address] [place] [address] Care Team Providers Care Job Printer Apprentice Name Role Phone Ousmanejade Dennise Whitney DIE REPAIRER TRIMMER DIES Primary Care Provider [phone] Allergies Active Allergy Reactions Criticality Noted Date Comments Other - See Comments 09/10/2016 Indocine- senstativity Tetracyclines Headaches 09/10/2016 Sensitivity- Severe Head Ache Medications Medication Sig Dispensed Refills Start Date End Date Status PAROXETINE HCL (PAXIL ORAL) Take 10 mg by mouth. Ac tive LOSARTAN POTASSIUM (LOSARTAN ORAL) Take by mouth. Activ e FERROUS SULFATE, DRIED (IRON, DRIED, ORAL) Take by mouth. Active finasteride (PROSCAR) 5 mg tablet Take 1 Tab by mouth daily. 90 Tab 3 09/10/2016 Active Additional Information Patient not taking.Reported on 08/18/2019 calcium carbonate-mag hydroxid 1,000-200 mg tablet,chewable Take by mouth daily. Active Social History Tobacco Use Types Packs/Day Years Used Date Smoking Tobacco: Former Smokeless Tobacco: Never Interpersonal Safety Answer Date Record ed Physically Hurt Never 04/09/2020 Verbally Threaten Not on file 04/09/2020 Sex and Gender Information Value Date Recorded Sex Assigned at Not on file Gender Identity Male 08/22/2020 19:10 EST Sexual Orientation Not on file Obstetrics History Plan of Treatment Health Maintenance Due Date Last Done Comments Hepatitis C Screen 1945 RSV Immunization ( o r 60+ Years) (1 - 1-dose 60+ series) 2005 Fall Risk Screening 2010 COVID-19 Vaccine (2022-24 season) 2023 Care Teams Job Printer Apprentice Relationship Specialty Start Date End Date Dennise Dewitt NP PCP - General 08/22/20
--- OUTSIDE RECORDS SUMMARY | 2024-03-24 10:18 | XMS_ITS | Encounter Summary ---
Author Organization [facility] Address [address] [place] [address] Care Team Providers Care Rn Gyn Name Role Phone Ramses Porter MD Primary Care Provider [phone] Dennise Dewitt NP Primary Care Provider [phone] Encounter Details Date Type Department Care Team (Late st Contact Info) Description 08/10/2020 Lab Requisition [facility] Pathology & Laboratory Medicine - [facility] [address] [place] [address] Outr Resulting Lab, Provider Social History Tobacco Use Types Packs/Day Years [...] on file documented as of this encounter Procedures Procedure Name Priority Date/Time Associated Diagnosis Comments PSA TOTAL, DIAGNOSTIC Routine 08/09/2020 11:00 EST documented in this encounter Results * (ABNORMAL) PSA TOTAL, DIAGNOSTIC (08/09/2020 11:00 EST) PSA 6.6(H) 0.0 - 6.5 ng/mL 08/10/2020 19:09 EST [facility] Blood VENOUS BLOOD / Unknown 08/09/2020 11:00 EST 08/10/2020 17:53 EST Narrative [facility] - 08/10/2020 19:09 EST NOTE: Serum PSA concentration should not be interpreted as absolute evidence for the presence or absence of malignant disease. Assayed on Siemens Sawtooth Ideas[employer] PokitDokaur XPT using chemiluminescent technology.??Values obtained by using different assay methods cannot be used interchangeably. Provider Outr Resulting Lab CHEMISTRY & BLOOD GAS ORDERABLES [facility] [address] [place] [address] documented in this encounter Visit Diagnoses Not on filedocumented in this encounter Care Teams Rn Gyn Relationship Specialty Start Date End Date Ramses Porter MD [address] [place] [address] PCP - General 08/18/19 08/21/20 Dennise Dewitt NP [address] [place] [address] PCP - General 08/22/20 documented as of this encounter
--- OUTSIDE RECORDS SUMMARY | 2024-03-24 10:18 | XMS_ITS | Encounter Summary ---
Author Organization [facility] Address [address] [place] [address] Care Team Providers Care Continuing Education Specialist Name Role Phone Unknown, Provider Primary Care Provider [phone] Encounter Details Date Type Department Care Team (Late st Contact Info) Description 08/26/2016 Results Only [facility] [phone] Maria R Falk MD Social History Tobacco Use Types Packs/Day Years Used Date Smoking Tobacco: Never Assessed Sex and Gender Information Value Date Recorded Sex Assigned at Not on file Gender Identity Male 08/22/2020 19:10 EST Sexual Orientation Not on file documented as of this encounter Plan of Treatment Not on file documented as of this encounter Procedures Procedure Name Priority Date/Time Associated Diagnosis Comments CYTOPATHOLOGY Routine 08/26/2016 0:00 EST documented in this encounter Results * CYTOPATHOLOGY (08/26/2016 0:00 EST) Pathology Report: CYTOPATHOLOGY REPORT Reports generated via electronic interface contain original data; however they are lacking the format of the original report. Caution should be taken when reading/interpret ing unformatted reports. Name: ? CHRISTIANO CORONEL ? Accession #: ? [id number] : ? 1945 (Age: 71) ??M ?Collect Date: ? 08/26/2016 Location: ? [facility] ? Receive Date: ? 08/27/2016 Provider: ? MARIA R FALK MD Copy to: ? CYTOLOGIC DIAGNOSIS: URINE, CATHETERIZED, CYTOLOGIC EVALUATION: - ??Negative for malignant cells. - ??Reactive urothelial cells with degenerative features. - ??Background of abundant acellular debris and mixed acute and chronic inflammation. Document reviewed and electronically signed by: ? DOMINGO HARDY MD Report Date: ??08/28/2016 09:33 By the signature above, the attending physician certifies that he/she has personally conducted a gross and/or microscopic examination of the described specimens and rendered or confirmed the above diagnosis. Specimen Type: ? Urine, Catheterized Clinical History: ? Urinary retention, UTI and hematuria. ? Gross Description: ? 40ccs of opaque red fluid were received and processed by selective cellular enhancement technique. ? End of Report [facility] 08/26/2016 08/27/2016 11: 52 EST Maria R Falk MD PATHOLOGY ORDER YANDY [facility] [address] [place] [address] documented in this encounter Visit Diagnoses Not on filedocumented in this encounter Care Teams Continuing Education Specialist Relationship Specialty Start Date End Date Unknown, Provider, PCP - General 08/26/16 09/03/16 documented as of this encounter
--- OUTSIDE RECORDS SUMMARY | 2024-03-24 10:18 | XMS_ITS | Encounter Summary ---
Author Organization [facility] Address [address] [place] [address] Care Team Providers Care Journalist Name Role Phone Maria R Falk MD Primary Care Provider Unavailable Ramses Porter MD Primary Care Provider [phone] Reason for Visit * Reason Onset Date Comments Appointment Related 06/29/2019 Appointment Related 07/01/2019 Appointment Related 07/26/2019 canceled , call to reschedule Encounter Details Date Type Department Care Team (Late st Contact Info) Description 06/29/2019 Telephone [facility] - [facility] [address] [place], [place] [id number] You Webster MD [address] [place] [phone] Appointment Related; Appointment Related; Appointment Related (canceled 07/27/19, call to reschedule ) Social History Tobacco Use Types Packs/Day Years Used Date Smoking Tobacco: Former Sex and Gender Information Value Date Recorded [...] No 09/10/2016 documented as of this encounter Miscellaneous Notes * Telephone Encounter - Sadie Finley - 07/26/2019 0924 EST Spoke to patient and rescheduled appt with Sr Webster * Telephone Encounter - Gita Brock - 07/26/2019 0842 EST Patient calling to cancel due to weather tomorrow. I have canceled. Please call to reschedule. * Telephone Encounter - Sadie Finley - 07/05/2019 1418 EDT Spoke to pt with appointment to follow up with Dr Webster. * Telephone Encounter - Kassi Jordan - 07/01/2019 0942 EDT Pt anxious to schedule. Pt requesting a call back today to schedule. * Telephone Encounter - Renu Steele - 06/29/2019 1008 EDT Reason for Call: Appointment Related Summary/Symptoms: Patient is ready to schedule now please call back to do so Renu Steele 06/29/2019 10:08 documented in this encounter Plan of Treatment Not on file documented as of this encounter Visit Diagnoses Not on filedocumented in this encounter Care Teams Journalist Relationship Specialty Start Date End Date Maria R Falk MD PCP - General 09/04/16 08/17/19 Ramses Porter MD [address] [place] [id number] PCP - General 08/18/19 08/21/20 documented as of this encounter
--- OUTSIDE RECORDS SUMMARY | 2024-03-24 10:18 | XMS_ITS | Encounter Summary ---
Author Organization [facility] Address [address] [place] [address] Care Team Providers Care Fish Farm Manager Name Role Phone Dennise Dewitt Chelo SPECIMEN TRANSPORTER Primary Care Provider [phone] Reason for Visit * Reason Comments Follow-up MRI Encounter Details Date Type Department Care Team (Late st Contact Info) Description 09/11/2020 10:15 EST Telemedicine [facility] - [facility] [address] [place], [place] [id number] Cristi Carrera MD [address] [facility], [address] [place] [address] Retention, urine (Primary Dx) Social History Tobacco [...] have Coronavirus / COVID-19? No / Unsure 09/02/2020 11:43 EST documented as of this encounter Functional [...] as of this encounter Progress Notes * Cristi Carrera MD - 09/11/2020 1015 EST Dennise Renate CC: BPH / retention KS patient Last seen 05/2020 DNR patient due to patients sense of personal overall status HPI: On CIC's x 3 since 2000 - for ~300 cc's Less difficulty with cathterization 08/2020 - increased urge - culture positive UTI per patient - better with Bactrim MR prostate: 08/2020 - negative - Pvol = 350 cc's - no increased nodes 06/2019 - Pvol = 240 cc's - 5 cm IVPP - no bladder distension - ? 2 cm right PSA = 6.6 / last = 11 (08/2019) / prior = 22... 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 Braswell The concept of ???Telemedicine?? has been described to the patient.? Patient has been informed of the anticipated benefits and possible risks.? Patient understands the information provided regardingtelemedicine, has had the opportunity to ask questions about this information, and all questions have been answered to patient???s satisfaction. Patient consents for the use of telemedicine in his/her medical care and authorizes the transmission of any relevant medical information to providers and their staff involved in patient???s medical or mental health care. TELEMEDICINE VIDEO VISIT Today's visit was provided through telemedicine video conferencing: The location of the patient : Home The location of the provider: Clinic Exam Room The following staff and their role did participate in today's encounter visit: Cristi Carrera MD documented in this encounter Plan of Treatment Not on file documented as of this encounter Visit Diagnoses Diagnosis Retention, urine- Primary Retention of urine, unspecified documented in this encounter Care Teams Fish Farm Manager Relationship Specialty Start Date End Date Dennise Dewitt NP PCP - General 08/22/20 documented as of this encounter
--- OUTSIDE RECORDS SUMMARY | 2024-03-24 10:18 | XMS_ITS | Encounter Summary ---
Author Organization [facility] Address [address] [place] [address] Care Team Providers Care Reservations Agent Name Role Phone Dennise Dewitt DULL COAT MILL OPERATOR Primary Care Provider [phone] Encounter Details Date Type Department Care Team (Latest Contact Info) Description 09/02/2020 Travel Social History Tobacco Use Types Packs/Day [...] on filedocumented in this encounter Care Teams Reservations Agent Relationship Specialty Start Date End Date Dennise Dewitt NP PCP - General 08/22/20 documented as of this encounter
--- OUTSIDE RECORDS SUMMARY | 2024-03-24 10:18 | XMS_ITS | Encounter Summary ---
Author Organization [facility] Address [address] [place] [address] Care Team Providers Care Supervisor Rice Milling Name Role Phone Ramses Porter MD Primary Care Provider [phone] Reason for Visit * Reason Comments Cystoscopy Encounter Details Date Type Department Care Team (Latest Contact Info) Description 09/03/2019 11:00 EST Procedure visit [facility] - [facility] [address] [place], [place] [phone] Scope, Cystoscopy Retention, urine (Primary Dx) Social History Tobacco [...] as of this encounter Progress Notes * Malgorzata Mon RN - 09/03/2019 1100 EST See physician encounter documented in this encounter Plan of Treatment Not on file documented as of this encounter Visit Diagnoses Diagnosis Retention, urine- Primary Retention of urine, unspecified documented in this encounter Care Teams Supervisor Rice Milling Relationship Specialty Start Date End Date Ramses Porter MD [address] [place] [address] PCP - General 08/18/19 08/21/20 documented as of this encounter
--- OUTSIDE RECORDS SUMMARY | 2024-03-24 10:18 | XMS_ITS | Encounter Summary ---
Author Organization [facility] Address [address] [place] [address] Care Team Providers Care Research Analyst Name Role Phone Ramses Porter MD Primary Care Provider [phone] Reason for Visit * Reason Comments Follow-up Poss Cysto Encounter Details Date Type Department Care Team (Late st Contact Info) Description 09/03/2019 11:15 EST Office Visit [facility] Urology - [facility] [address] [place], [place] [id number] You Webster MD [address] [place] [phone] Retention, urine (Primary Dx) Social History [...] as of this encounter Progress Notes * You Webster - 09/03/2019 1115 EST This is a 74-year-old gentleman with known urinary retention. 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 He was having some difficulty catheterizing and also recently had an MRI of the pelvis. This showed a very large gland, and I reviewed the imaging again today. He has a very significant intravesical prostatic component likely interfering with the catheterizations. His PSA levels have varied, but most recently down to 11. There was question of the need to performcystoscopy; however, I really do not think this is a urothelial lesion and it looks more like intravesical prostate. We had him reevaluated and tried him on new catheters. He has been using a 12- Japanese coude tipped catheter and this has been improving his ability to empty. He has been doing this 4 times a day. We will reorder these for him as at this point, he does not wish to have surgical intervention. I will see him on a yearly basis to check in. He will call for any concerns prior. * Mali Rios RN - 09/03/2019 1115 EST Patient is self catheterizing 4 times daily with 12 Fr coude coloplast. and is requesting his prescription to go to [facility]. Pt is requesting 1 catheter for the whole month and he has been washing the catheter. Pt is worried about the environment. Dr. Webster was present for the conversation and pt agreed to have a catheter for every week or 4/month. Pt states he needs 4 tubes of 4oz sterile lubricants per month. Nursing will order 90 day supply for catheters and lubricant. documented in this encounter Miscellaneous Notes * Addendum Note - Mali Rios RN - 09/03/2019 1115 ESTAddended by: AMLI RIOS on: 09/03/2019 13:16 Modules accepted: Orders documented in this encounter Plan of Treatment Not on file documented as of this encounter Visit Diagnoses Diagnosis Retention, urine- Primary Retention of urine, unspecified documented in this encounter Orders Equipment Count Last Ordered Date First Orde red Date GENERIC DME ORDER 2 09/03/2019 documented in this encounter Care Teams Research Analyst Relationship Specialty Start Date End Date Ramses Porter MD [address] [place] [address] PCP - General 08/18/19 08/21/20 documented as of this encounter
--- OUTSIDE RECORDS SUMMARY | 2024-03-24 10:18 | XMS_ITS | Encounter Summary ---
Author Organization [facility] Address [address] [place] [address] Care Team Providers Care Binman Name Role Phone Ramses Porter MD Primary Care Provider [phone] Reason for Referral * Radiology Services (Routine) - Closed Specialty Diagnoses / Procedures [facility] Referred To Contact Radiology Diagnoses Elevated PSA Benign prostatic hyperplasia with nocturia Procedures MR PROSTATE W WO CONTRAST Cristi Carrera MD [address] [place] [phone] Referral ID Status Reason Start Date Expiration Date Visits Re quested Visits Authorized [id number] Closed 08/13/2020 02/09/2021 1 1 Reason for Visit * Reason Comments Follow-up Encounter Details Date Type Department Care Team (Late st Contact Info) Description 05/29/2020 11:30 EDT Office Visit [facility] Urology - [address] [phone] Cristi Carrera MD [address] [place] [phone] Elevated PSA (Primary Dx); Benign prostatic hyperplasia with nocturia Social History Tobacco Use Types Packs/Day Years [...] Progress Notes * Cristi Carrera MD - 05/29/2020 1130 EDT Ramses Porter CC: BPH / retention KS patient DNR patient HPI: On CIC's since 2000 - for ~300 cc's Increasing difficulty with cathterization Discussion about long-term risk In last 6 months - 1 UTI - increased urge - better with Abx - no fever PSA = 11 (08/2019) / prior = 22... multiple TRUS and Bx's - negative per patient 06/2019 - MR prostate - Pvol = 240 cc's - 5 cm IVPP - no bladder distension - ? 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 pelvic lymph node PLAN: Get old PSA's F/U PSA / MR prostate / me 3 months Simple retropubic prostatectomy discussed documented in this encounter Plan of Treatment Not on file documented as of this encounter Results * MR PROSTATE W WO CONTRAST (09/02/2020 14:10 EST) Anatomical Region Laterality Modality Body, Pelvis Magnetic Resonan ce 09/04/2020 9:19 EST Impressions 09/04/2020 9:19 EST 1. No suspicious prostate lesions identified on MRI. 2. Marked BPH changes (PI-RADS 1/2) with marked prostatic enlargement of approximately 350 cc. 3. Previously noted right pelvic sidewall lymph node represents a mildly dilated vein. No pathologically enlarged lymph nodes. 4. 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 Narrative 09/04/2020 9:19 EST MR PROSTATE W WO CONTRAST ??09/02/2020 1:00 PM Clinical history/Comments: BPH / elevated PSA- ? right pelvic node Comparison: June 28, 2019 MRI Technique: Multiplanar and multiparametric MR sequences of the pelvis were performed prior to and after intravenous administration of contrast. Perfusion assessed with DynaCAD software. Findings: Prostate: Volume: Approximately 350 cc T1-weighted imaging: No intrinsic T1 hyperintense material. Transition Zone: Extensive benign prostatic hyperplasia changes. No suspicious lesion identified on T2-weighted imaging. Peripheral Zone: No suspicious lesions on diffusion-weighted imaging. Seminal vesicles: Normal. Extracapsular extension: NA Neurovascular bundle invasion: NA Bladder: Diffuse wall thickening and trabeculation with small diverticulum at the dome. Lymph nodes: There are small bilateral pelvic sidewall lymph nodes as well as inguinal lymph nodes, none of which are pathologically enlarged. Small dilated vein is noted along the right pelvic sidewall. Bones: No suspicious lesions. Bilateral hip synovitis. Edema at the origin of the right hamstring tendon. Incidental Findings: ?? Left lower pole renal cyst. Procedure Note Douglas Tom MD - 09/04/2020 MR PROSTATE W WO CONTRAST 09/02/2020 1:00 PM Clinical history/Comments: BPH / elevated PSA- ? right pelvic node Comparison: June 28, 2019 MRI Technique: Multiplanar and multiparametric MR sequences of the pelvis were performedprior to and after intravenous administration of contrast. Perfusionassessed with DynaCAD software. Findings: Prostate: Volume: Approximately 350 cc T1-weighted imaging: No intrinsic T1 hyperintense material. Transition Zone: Extensive benign prostatic hyperplasia changes. Nosuspicious lesion identified on T2-weighted imaging. Peripheral Zone: No suspicious lesions on diffusion-weighted imaging. Seminal vesicles: Normal. Extracapsular extension: NA Neurovascular bundle invasion: NA Bladder: Diffuse wall thickening and trabeculation with small diverticulumat the dome. Lymph nodes: There are small bilateral pelvic sidewall lymph nodes as wellas inguinal lymph nodes, none of which are pathologically enlarged. Smalldilated vein is noted along the right pelvic sidewall. Bones: No suspicious lesions. Bilateral hip synovitis. Edema at the originof the right hamstring tendon. Incidental Findings: Left lower pole renal cyst. IMPRESSION 1. No suspicious prostate lesions identified on MRI. 2. Marked BPH changes (PI-RADS 1/2) with marked prostatic enlargement ofapproximately 350 cc. 3. Previously noted right pelvic sidewall lymph node represents a mildlydilated vein. No pathologically enlarged lymph nodes. 4. 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 Cristi Carrera MD IMG MRI ORDERABLE S documented in this encounter Visit Diagnoses Diagnosis Elevated PSA- Primary Elevated prostate specific antigen (PSA) Benign prostatic hyperplasia with nocturia Elevated PSA Elevated prostate specific antigen (PSA) Benign prostatic hyperplasia with nocturia documented in this encounter Historical Medications * This list may reflect changes made after this encounter. Medication Sig Dispensed Refills Start Date End Date calcium carbonate-mag hydroxid 1,000-200 mg tablet,chewable Take by mouth daily. added in this encounter Care Teams Binman Relationship Specialty Start Date End Date Ramses Porter MD [address] [place] [address] PCP - General 08/18/19 08/21/20 documented as of this encounter
--- OUTSIDE RECORDS SUMMARY | 2024-03-24 10:18 | XMS_ITS | Encounter Summary ---
Author Organization [facility] Address [address] [place] [address] Care Team Providers Care Indoor Plant Technician Name Role Phone Ousmanejade Dennise Chelo OBSTETRICIAN/GYNECOLOGIST Primary Care Provider [phone] Reason for Referral * Radiology Services (Routine) - Closed Specialty Diagnoses / Procedures Referred By [facility] Referred To Contact Radiology Diagnoses Elevated PSA Benign prostatic hyperplasia with nocturia Procedures MR PROSTATE W Cristi Guzmán MD [address] [place] [phone] Referral ID Status Reason Start Date Expiration Date Visits Re quested Visits Authorized [id number] Closed 08/13/2020 02/09/2021 1 1 Reason for Visit * Radiology Services (Routine) - Closed Specialty Diagnoses / Procedures Referred By [facility] wright Referred To Contact Radiology Diagnoses Elevated PSA Benign prostatic hyperplasia with nocturia Procedures MR PROSTATE W Cristi Guzmán MD [address] [place] [phone] Referral ID Status Reason Start Date Expiration Date Visits Re quested Visits Authorized [id number] Closed 08/13/2020 02/09/2021 1 1 Encounter Details Date Type Department Care Team (Latest Contact Info) Description 09/02/2020 11:43 EST - 09/02/2020 23:59 EST [facility] Rad[facility] MRI - [address] [address] Elevated PSA; Benign prostatic hyperplasia with nocturia Discharge Disposition: Home or Self Care Social History Tobacco Use Types Packs/Day Years [...] No 09/10/2016 documented as of this encounter Medications at Time of Discharge Medication Sig Dispensed Refills Start Date End Date calcium carbonate-mag hydroxid 1,000-200 mg tablet,chewable Take by mouth daily. FERROUS SULFATE, DRIED (IRON, DRIED, ORAL) Take by mouth. finasteride (PROSCAR) 5 mg tablet Take 1 Tab by mouth daily. 90 Tab 3 09/10/2016 LOSARTAN POTASSIUM (LOSARTAN ORAL) Take by mouth. PAROXETINE HCL (PAXIL ORAL) Take 10 mg by mouth. documented as of this encounter Discharge Disposition Disposition Code Departure Means Destination Home or Self Care documented in this encounter Plan of Treatment Not on file documented as of this encounter Procedures Procedure Name Priority Date/Time Associated Diagnosis Comments MR PROSTATE W WO CONTRAST Routine 09/02/2020 14:10 EST Elevated PSA Benign prostatic hyperplasia with nocturia documented in this encounter Results * MR PROSTATE W [...] in this encounter Visit Diagnoses Diagnosis Elevated PSA Elevated prostate specific antigen (PSA) Benign prostatic hyperplasia with nocturia documented in this encounter Administered Medications Inactive Administered Medications - up to 3 most recent administrations Medication Order MAR Action Action Date Dose Rate Site gadobutroL (GADAVIST PFS) solution solution 1-15 mmol 1-15 mmol (1-15 mL), intravenous, Once in imaging, 1 dose, Starting on 09/02/20 at 1304, Until 09/02/20 at 1411, Routine, Imaging Protocol Orders Given 09/02/2020 14:11 EST 5.4 mmol documented in this encounter Orders Medications Ordered That Javon ht Not Have Been Administered Count Last Ordered Date First Ordered Date gadobutroL (GADAVIST PFS) so lution solution 1-15 mmol 1 09/02/2020 documented in this encounter Care Teams Indoor Plant Technician Relationship Specialty Start Date End Date Dennise Dewitt NP PCP - General 08/22/20 documented as of this encounter
--- OUTSIDE RECORDS SUMMARY | 2024-03-24 10:18 | XMS_ITS | Clinical Summary ---
Author Organization [facility] Address [facility] [place] [address] Care Team Providers Care Employment Law Attorney Name Role Phone Steph Chapin MD Primary Care Provider [phone] Allergies Active Allergy Reactions Criticality Noted Date Comments Max Inhibitors 08/25/2023 Indomethacin Sodium Tetracyclines Medications Medication Sig Dispensed Refills Start Date End Date Status PARoxetine (PAXIL) 10 mg tablet 08/07/2009 Active multivitamin (THERAGRAN) tablet 08/07/2009 Active losartan (Cozaar) 50 mg tablet Take 50 mg by mouth daily. Active omeprazole (PriLOSEC) [address] capsule Take 20 mg by mouth every other day. Active finasteride (Proscar) 5 mg tablet Take 5 mg by mouth daily. Active methenamine (Hiprex) 1 gram tablet TAKE ONE TABLET BY MOUTH TWICE A DAY, VITAMIN C. 500 MG THREE TIMES A DAY MAKES IT WORK BETTER 08/14/2023 Active Active Problems Problem Noted Date Diagnosed Date Horseshoe retinal tear, righ t eye: Now well treated. No new lesions 09/23/2011 Posterior vitreous detachmen t, right eye with vitreous hemorrhage. Follow closely. 09/11/2011 Vision changes 09/11/2011 Immunizations Name Administration Dates Next Due Influenza Vaccine, Whole 06/28/2008 Family History Medical History Relation Comments Cataracts Brother Diabetes Father Diabetes Mother Glaucoma Neg Hx Relation Status Comments Brother Father Mother Social History Tobacco Use Types Packs/Day Years Used Date Smoking Tobacco: Former Cigarettes Q uit: 09/11/1974 Tobacco Cessation:Counseling Given: Not Answered Alcohol Use Standard Drinks/Week Comments Yes 0 (1 standard drink = 0.6 oz pur e alcohol) Sex and Gender Information Value Date Recorded Sex Assigned at Not on file Gender Identity Not on file Sexual Orientation Not on file Last Filed Vital Signs Vital Sign Reading Time Taken Comments Blood Pressure 148/79 08/25/2023 1:01 PM EST Pulse 86 08/25/2023 1:01 PM EST Temperature - - Respiratory Rate - - Oxygen Saturation - - Inhaled Oxygen Concentration - - Weight - - Height 160 cm (5' 3) 01/22/2023 10:05 AM EDT Body Mass Index - - Plan of Treatment Health Maintenance Due Date Last Done Comments Hepatitis C Screening 1963 Tdap adult 02/25/1964 Tetanus vaccine 02/25/1964 Zoster vaccine (1 of 2) 1995 Advance Directive 02/25/2000 Pneumoccocal Vaccine: 65+ (1 of 1 - PCV) 2010 Covid-19 Vaccine ( - season) 2023 Influenza (Flu) vaccine (1 o f 1 - Influenza standard series) 05/09/2024 06/28/2008 Care Teams Employment Law Attorney Relationship Specialty Start Date End Date Steph Chapin MD [address] [place] [address] [place] [id number] PCP - General 07/31/10
--- OUTSIDE RECORDS SUMMARY | 2024-03-24 10:18 | XMS_ITS | Continuity of Care Document ---
Author Organization [facility] Address [address] [place] [address] Care Team Providers Care Swaging Machine Operator Name Role Phone Briana Rodas Primary Care Physician [phone] Encounter [place] Date(s): 10/07/22 - 10/07/[address] [address] Encounter Diagnosis Recurrent urinary tract infection(Discharge Diagnosis) - 10/07/22 Discharge Disposition: Home or Self Care Attending [...] 0 Refill(s) Start Date: 10/01/22 Status: Ordered Social History Social History Type Response Sex Male Patient Care team information Personnel Name: Briana Rodas PA-C Address: Address: [address] [address]
--- OUTSIDE RECORDS SUMMARY | 2024-03-24 10:18 | XMS_ITS | Referral Summary ---
Author Organization [facility] Address [address] [place] [address] Care Team Providers Care Wet Cotton Feeder Name Role Phone Dennise Dewitt Chelo PIZZA HUT ASSISTANT Primary Care Provider [phone] Allergies Active Allergy Reactions Criticality Noted Date [...] 19:10 EST Sexual Orientation Not on file Functional Status Functional Status Response Date of [...] concentrating, remembering, or making decisions? No 09/10/2016 Plan of Treatment Not on file Care Teams Wet Cotton Feeder Relationship Specialty Start Date End Date Dennise Dewitt NP [phone] (work) PCP - General 08/22/20
--- OUTSIDE RECORDS SUMMARY | 2024-03-24 10:18 | XMS_ITS | Continuity of Care Document ---
Author Organization [facility] Address [address] [place] [address] Care Team Providers Care Product Evangelist Name Role Phone Briana Rodas Primary Care Physician Encounter [place] Date(s): 10/18/22 - 10/18/[address] [address] Discharge Disposition: Home or Self Care Attending Physician: Demar Braswell MD Admitting Physician: Demar Braswell MD Referring Physician: Demar Braswell MD Allergies, Adverse Reactions, Alerts Substance Reaction Severity Status tetracycline Moderate Active Indocin Moderate Active LEVI inhibitors Moderate Active Assessment and Plan Future Appointments Future Scheduled Tests Radiology* CT Abdomen and Pelvis w/ Contrast 10/18/22 Immunizations Given and Recorded Vaccine Date Status [...] Effective Dates Status Health St atus Informant Depression Confirmed Active GERD (gastroesophageal reflux disease) Confirmed Active Results Laboratory List Name Date Basic Metabolic Panel (BMP) 10/18/22 Most recent to oldest [Reference Range]: 1 BUN [7-18 mg/dL] 31 mg/dL *HI* (10/18/22 2:27 PM) Glucose Level [74-106 mg/dL] 109 mg/dL *HI* (10/18/22 2:27 PM) Potassium Level [3.5-5.1 mmol/L] 3.9 mmo l/L (10/18/22 2:27 PM) Sodium Level [136-145 mmol/L] 142 mmol/L (10/18/22 2:27 PM) Calcium Level [8.5-10.1 mg/dL] 9.0 mg/dL (10/18/22 2:27 PM) CO2 [21-32 mmol/L] 30 mmol/L (10/18/22 2:27 PM) eGFR Non-AA [>=60] 55 *LOW* (10/18/22 2:27 PM) eGFR AA [>=60] 55 *LOW* (10/18/22 2:27 PM) Chloride Level [98-107 mmol/L] 106 mmol/ L (10/18/22 2:27 PM) Creatinine Level [0.70-1.30 mg/dL] 1.33 mg/dL *HI* (10/18/22 2:27 PM) Social History Social History Type Response Sex Male Patient Care team information Care Team Personnel Name: Briana Rodas PA-C Position: PowerChart View Only Member Role: Primary Care Physician Address: Address: [facility] [address] [place] [address]- Care Team Related Persons Name: BARBARA MURPHY Address: Home [address] [place], [place] [id number]
--- OUTSIDE RECORDS SUMMARY | 2024-03-24 10:18 | XMS_ITS | Encounter Summary ---
Author Organization [facility] Address [address] [place] [address] Care Team Providers Care Top Lift Trimmer Name Role Phone Maria R Falk MD Primary Care Provider Unavailable Encounter Details Date Type Department Care Team (Late st Contact Info) Description 06/29/2019 Results Only Imaging [facility]- [facility] [phone] Unknown, Provider, Social History Tobacco Use Types Packs/Day Years [...] as of this encounter Plan of Treatment Pending Results Name Type Priority Associated Diagnoses Date /Time OUTSIDE IMAGES - MR MSK Imaging 1 9:53 EDT documented as of this encounter Visit Diagnoses Not on filedocumented in this encounter Care Teams Top Lift Trimmer Relationship Specialty Start Date End Date Maria R Falk MD PCP - General 09/04/16 08/17/19 documented as of this encounter
--- OUTSIDE RECORDS SUMMARY | 2024-03-24 10:18 | XMS_ITS | Encounter Summary ---
Author Organization [facility] Address [address] [place] [address] Care Team Providers Care Learning Operations Specialist Name Role Phone Ramses Porter MD Primary Care Provider [phone] Encounter Details Date Type Department Care Team (Late st Contact Info) Description 05/30/2020 Orders Only [facility] Radiology - [place] [address] [place] [address] Stevie Rivera MD [address] [place] [facility] [address] Social History Tobacco Use Types Packs/Day Years [...] on filedocumented in this encounter Care Teams Learning Operations Specialist Relationship Specialty Start Date End Date Ramses Porter MD [address] [place] [address] PCP - General 08/18/19 08/21/20 documented as of this encounter
--- OUTSIDE RECORDS SUMMARY | 2024-03-24 10:18 | XMS_ITS | Encounter Summary ---
Author Organization [facility] Address [address] [place] [address] Care Team Providers Care Mechanical Maintenance Foreman Name Role Phone Maria R Falk MD Primary Care Provider Unavailable Reason for Visit * Reason Onset Date Comments New Patient Visit 09/10/201609/10 11:30. Fax should be here [address] which was done 09/05 Encounter Details Date Type Department Care Team (Late st Contact Info) Description 09/10/2016 Telephone [facility] Urology - [facility] [address] [place], [place] [id number] You Webster MD [address] [place] [phone] New Patient Visit (09/10 11:30. Fax should be here /[address] which was done 09/05) Social History Tobacco Use Types Packs/Day Years [...] encounter Miscellaneous Notes * Telephone Encounter - Sergio Tran - 09/10/2016 0942 EST Reason for Call: New Patient Visit (09/10 11:30. Fax should be here 09/[address]rogram which was done09/05) Summary/Symptoms: 09/10 11:30. Fax should be here 09/[address] Urogram which was done 09/05 Sergio Tran 09/10/2016 9:42 documented in this encounter Plan of Treatment Not on file documented as of this encounter Visit Diagnoses Not on filedocumented in this encounter Care Teams Mechanical Maintenance Foreman Relationship Specialty Start Date End Date Maria R Falk MD PCP - General 09/04/16 08/17/19 documented as of this encounter
--- OUTSIDE RECORDS SUMMARY | 2024-03-24 10:18 | XMS_ITS | Continuity of Care Document ---
Author Organization [facility] Address [address] [place] [address] Care Team Providers Care Motor And Generator Assembler Name Role Phone Briana Rodas Primary Care Physician Encounter [place] Date(s): 09/23/22 - 09/23/[address] [address] Discharge Disposition: Home or Self Care Attending Physician: Demar Braswell MD Admitting Physician: Demar Braswell MD Assessment and Plan [...] toxoids (Td) adult/adol 06/29/10 Re corded Results Orders for Microbiology Reports Name Date Urine Culture 09/23/22 Microbiology Reports TEST:Urine Culture STATUS:Order in Progress BODY SITE: SOURCE:Urine COLLECTED DATE/TIME:09/23/22 11:27 AM PRELIMINARY REPORT >100,000 cfu/ml Enterobacter cloacae complex Susceptibility to follow. Social History Social History Type Response Sex Male Patient Care team information Personnel Name: Briana Rodas PA-C Address: Address: [address] [address]
--- OUTSIDE RECORDS SUMMARY | 2024-03-24 10:18 | XMS_ITS | Encounter Summary ---
Author Organization [facility] Address [address] [place] [address] Care Team Providers Care Director Of Group Sales Name Role Phone Ramses Porter MD Primary Care Provider [phone] Reason for Visit * Reason Onset Date Comments Appointment Related 06/02/2020 Encounter Details Date Type Department Care Team (Late st Contact Info) Description 06/02/2020 Telephone [facility] Urology - [address] [phone] Cristi Carrera MD [address] [facility] [place] [address] Appointment Related Social History Tobacco Use Types Packs/Day Years [...] * Telephone Encounter - Sadie Finley - 06/02/2020 1625 EDT Patient called back and was scheduled for televideo follow up with Dr Carrera 08/24 * Telephone Encounter - Sadie Finley - 06/02/2020 1513 EDT LM for patient with appt for MRI 08/19/20, check in third floor registration at 1415 for 1500 MRI, NPO 4 hours prior. Asked pt to call back to schedule follow up with Dr Carrera. documented in this encounter Plan of Treatment Not on file documented as of this encounter Visit Diagnoses Not on filedocumented in this encounter Care Teams Director Of Group Sales Relationship Specialty Start Date End Date Ramses Porter MD [address] [place] [address] PCP - General 08/18/19 08/21/20 documented as of this encounter
--- OUTSIDE RECORDS SUMMARY | 2024-03-24 10:18 | XMS_ITS | Continuity of Care Document ---
Author Organization [facility] Address [address] [place] [address] Care Team Providers Care Clinical Writer Name Role Phone Briana Rodas Primary Care Physician Encounter [place] Date(s): 09/24/23 - 09/24/[address] [address] Discharge Disposition: Home or Self Care Attending Physician: Demar Braswell MD Admitting Physician: Demar Braswell MD Allergies, Adverse Reactions, Alerts Substance Reaction Severity Status tetracycline Moderate Active Indocin Moderate Active LEVI inhibitors Moderate Active Immunizations Given and Recorded Vaccine Date Status Refusal Reason influenza virus vaccine, inactivated 06/17/23 Give n influenza virus vaccine, inactivated 05/25/13 Jacob rded influenza virus vaccine, inactivated 07/27/12 Jacob rded influenza virus vaccine, inactivated 07/22/11 Jacob rded influenza virus vaccine, inactivated 06/29/10 Jacob rded influenza virus vaccine, live 06/09/21 Recorded zoster vaccine live 08/18/12 Recorded tetanus-diphth toxoids (Td) adult/adol 06/29/10 Re corded Medications Bactrim DS 800 mg-160 mg oral tablet 1 tab, Oral, BID, # 14 tab, 0 Refill(s), Pharmacy: [facility] #[id number] Start Date: 06/16/23 Stop Date: 06/23/23 Status: Ordered calcium carbonate 500 mg (elemental Ca 200 mg) oral tab, chewable 500 mg 1 tab, Chewed, Daily, 0 Refill(s) Start Date: 10/18/22 Status: Ordered finasteride 5 mg oral tablet 5 mg = 1 tab, Oral, Daily, # 90 tab, 3 Refill(s), Pharmacy: [facility] #[id number] Start Date: 05/09/23 Stop Date: 05/03/24 Status: Ordered finasteride 5 mg oral tablet 5 mg = 1 tab, Oral, Daily, # 90 tab, 3 Refill(s), Pharmacy: [facility] #[id number] Start Date: 05/13/23 Stop Date: 05/07/24 Status: Ordered flurazepam 15 mg oral capsule [...] 0 Refill(s) Start Date: 10/18/22 Status: Ordered methenamine hippurate 1 g oral tablet 1 g = 1 tab, Oral, BID, Vitamin C 500 m g three times a day makes it work better, # 180 tab, 1 Refill(s), Pharmacy: [facility] #[id number], 163, cm, 05/09/23 15:38:00 EDT, Height Start Date: 08/13/23 Stop Date: 02/09/24 Status: Ordered multivitamin adult, oral tablet 1 [...] Effective Dates Status Health St atus Informant Acontractile detrusor Confirmed Active Actinic keratosis Confirmed Active Adult health examination Confirmed Active 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 Depression Confirmed Active Dysuria Confirmed Active Elevated blood-pressure reading without diagnosis of hypertension Confirmed Active GERD (gastroesophageal reflux disease) Confirmed Active Indigestion Confirmed Active Insomnia Confirmed Active Non-neoplastic nevus Confirmed Active Posterior vitreous detachment of right eye Confirmed 09/11/11 Active Urinary retention Confirmed Active Retinal U shaped tear Confirmed 09/23/11 Active Urinary tract infectious disease Confirmed Active Urinary tract obstruction Confirmed Active Procedures Procedure Date Related Diagnosis Body Site Status Cystoscopy 10/17/22 Completed Manipulation of displaced na celestina septum (procedure) Completed Results Orders for Microbiology Reports Name Date Urine Culture 09/24/23 Microbiology Reports TEST:Urine Culture STATUS:Order in Progress BODY SITE: SOURCE:Urine, Catheterized COLLECTED DATE/TIME:09/24/23 1:04 PM PRELIMINARY REPORT No growth at 24 hours. Social History Social History Type Response Tobacco Never tobacco user T obacco Use:. Sex Male Patient Care team information Care Team Personnel Name: Briana Rodas PA-C Position: PowerChart View Only Member Role: Primary Care Physician Address: Address: [address] [address]- Care Team Related Persons Name: BARBARA MURPHY Address: Home [address] [place], [place] [id number]
--- OUTSIDE RECORDS SUMMARY | 2024-03-24 10:18 | XMS_ITS | Encounter Summary ---
Author Organization [facility] Address [address] [place] [address] Care Team Providers Care Geologic Technician Name Role Phone Maria R Falk MD Primary Care Provider Unavailable Encounter Details Date Type Department Care Team (Late st Contact Info) Description 09/10/2016 Results Only Imaging [facility]- [facility] [phone] Unknown, Provider, Social History Tobacco Use Types [...] Associated Diagnoses Date /Time OUTSIDE IMAGES - CT BODY Imaging 09/10/2016 12:04 EST documented as of this encounter Visit Diagnoses Not on filedocumented in this encounter Care Teams Geologic Technician Relationship Specialty Start Date End Date Maria R Falk MD PCP - General 09/04/16 08/17/19 documented as of this encounter
--- OUTSIDE RECORDS SUMMARY | 2024-03-24 10:18 | XMS_ITS | Encounter Summary ---
Author Organization [facility] Address [address] [place] [address] Care Team Providers Care Excelsior Picker Name Role Phone Unavailable Primary Care Provider Unavailabl e Encounter Details Date Type Department Care Team (Late st Contact Info) Description 02/03/2004 Results Only [facility] - [facility] [address] [place] [address] Nely Aguilar CRNA Social History Tobacco Use Types Packs/Day Years Used Date Smoking Tobacco: Never Assessed Sex and Gender Information Value Date Recorded Sex Assigned at Not on file Gender Identity Male 08/22/2020 19:10 EST Sexual Orientation Not on file documented as of this encounter Plan of Treatment Not on file documented as of this encounter Procedures Procedure Name Priority Date/Time Associated Diagnosis Comments CYTOPATHOLOGY Routine 02/03/2004 0:00 EDT documented in this encounter Results * CYTOPATHOLOGY (02/03/2004 0:00 EDT) Pathology Report: CYTOPATHOLOGY REPORT Reports generated via electronic interface contain original data; however they are lacking the format of the original report. Caution should be taken when reading/interpreti ng unformatted reports. Name: ? CHRISTIANO CORONEL ? Accession #: ? [id number] : ? 1945 (Age: 58) ??M ?Collect Date: ? 02/03/2004 Location: ? [facility] ? Receive Date: ? 02/05/2004 Provider: ? NLEY AGUILAR MD Copy to: ? CYTOLOGIC DIAGNOSIS: ? Urine, catheterized, cytologic evaluation: 1. ?Negative for malignant cells. 2. ?Sparse reactive urothelial cells and rare granular casts present within a background including red blood cells. Document reviewed and electronically signed by: ? Ginny Rios MD PhD Report Date: ??02/07/2004 15:20 By the signature above, the attending physician certifies that he/she has personally conducted a gross and/or microscopic examination of the described specimens and rendered or confirmed the above diagnosis. Specimen Type: ? Urine, Catheterized Clinical History: ? Hematuria ? Gross Description: ? 70cc' s of opaque, yellow fluid were received and processed by selective cellular enhancement technique. ? End of Report [facility] 02/03/2004 02/05/2004 11: 53 EDT Nely Aguilar BASE FILLER OPERATOR PATHOLOGY ORDERABLES [facility] [address] [place] [address] documented in this encounter Visit Diagnoses Not on filedocumented in this encounter
--- OUTSIDE RECORDS SUMMARY | 2024-03-24 10:18 | XMS_ITS | Continuity of Care Document ---
Author Organization [facility] Address [address] [place] [address] Care Team Providers Care Hose Finisher Name Role Phone Briana Rodas Primary Care Physician [phone] Encounter [place] Date(s): 06/16/23 - 06/16/[address] [address] Discharge Disposition: Home or Self Care Attending [...] BID, # 14 tab, 0 Refill(s), Pharmacy: [facility] #[id number] Start Date: 06/16/23 Stop Date: 06/23/23 Status: Ordered calcium carbonate 500 mg (elemental Ca 200 mg) oral tab, chewable 500 mg 1 tab, Chewed, Daily, 0 Refill(s) Start Date: 10/18/22 Status: Ordered finasteride 5 mg oral tablet 5 mg = 1 tab, Oral, Daily, # 90 tab, 3 Refill(s), Pharmacy: [facility] #[id number] Start Date: 05/09/23 Stop Date: 05/03/24 Status: Ordered finasteride 5 mg oral tablet 5 mg = 1 tab, Oral, Daily, # 90 tab, 3 Refill(s), Pharmacy: [facility] #[id number] Start Date: 05/13/23 Stop Date: 05/07/24 [...] for Microbiology Reports Name Date Urine Culture 06/16/23 Microbiology Reports TEST:Urine Culture STATUS:Order in Progress BODY SITE: SOURCE:Urine, Catheterized COLLECTED DATE/TIME:06/16/23 12:57 PM PRELIMINARY REPORT No growth at 24 hours. Social History Social History Type Response Tobacco Never tobacco user T obacco Use:. Sex Male Patient Care team information Care Team Personnel Name: Briana Rodas PA-C Position: PowerChart View Only Member Role: Primary Care Physician Address: Address: [address] [address] Care Team Related Persons Name: BARBARA MURPHY Address: Home [address] [place], [place] [id number]
--- OUTSIDE RECORDS SUMMARY | 2024-03-24 10:18 | XMS_ITS | Encounter Summary ---
Author Organization [facility] Address [address] [place] [address] Care Team Providers Care Leg Man Name Role Phone Maria R Falk MD Primary Care Provider Unavailable Reason for Visit * Reason Comments New Patient Visit Gross Hematuria, Pat ient self caths * Consult (Routine) - Closed Specialty Diagnoses / [facility] To Contact Urology Diagnoses BPH (benign prostatic hyperplasia) Bladder outlet obstruction Hematuria Maria R Falk MD [address] [place] [address] [facility] Urology [address] [place] [address] Referral ID Status Reason Start Date Expiration Date Visits Re quested Visits Authorized [id number] Closed 1 1 Encounter Details Date Type Department Care Team (Late st Contact Info) Description 09/10/2016 11:30 EST Office Visit [facility] Urology - Main [place] [address] [place] [address] You Webster MD [address] [place] [address] [address] [place] [address] Hematuria, gross (Primary Dx); Retention of urine; Elevated PSA Social History Tobacco Use Types Packs/Day Years [...] No 09/10/2016 documented as of this encounter Ordered Prescriptions Prescription Sig Dispensed Refills Start Date End Da te finasteride (PROSCAR) 5 mg tablet Take 1 Tab by mouth daily. 90 Tab 3 09/10/2016 documented in this encounter Progress Notes * You Webster - 09/10/2016 1130 EST Maria R Falk Requesting Physician: Maria R Falk Reason for Consultation: Hematuria. History of Present Illness: This is a 71-year-old gentleman with a longstanding urologic history. He had been seen here many years ago by Dr Gómez for significant benign prostatic hypertrophy and urinary retention. Ultimately evaluation was done and he was diagnosed with an atonic bladder. He reports being scheduled for surgical intervention for an outlet obstructing procedure; however, ultimately did not go through with this as he was going to require self-catheterization anyway. He reports now for at least 15 years, he has been intermittently catheterizing himself without significant difficulties. He catheterizes about 4 times per day. On rare occasions, he will have some blood in his urine and he has developed a few urinary tract infections, but nothing severe. More recently he again developed hematuria in the setting of an infection. The infection has been treated, but it became difficult for him to catheterize due to the blood clots. Fortunately, this hasresolved and now his urine has been clear. He is not having further difficulties catheterizing or draining his bladder. He had no associated fevers, chills, nausea, or vomiting during this more recent episode. He presents to reestablish urologic care due to his history. He is not on any medicationsfor his bladder or prostate at this time. Review of Systems: A comprehensive review is performed. Pertinent positives are as per the HPI, allothers are negative. His past medical history includes asthma, depression, BPH with urinary retention, hypertension and glaucoma. Current medications include Paxil, lorazepam, multivitamin and albuterol. He has allergies to TETRACYCLINES. He is a former smoker. Denies alcohol or illicit drug use. Denies a family history of urologic malignancy. On that note, he has been followed in the past for elevated PSA levels and has had negative prostate biopsies at least more than 1 time. It appears that his baseline PSA is in the mid-6 range and this was checked during this recent episode and increased significantly up to 22. We discussed that in the setting of infection, this could certainly increase the PSA and I think it warrants repeating. He also had a CT scan, which was a CT urogram done, which I reviewed personally with him and the official report is pending. I see some small cysts on the left kidney but no filling defects and no hydronephrosis. The bladder is very enlarged with a very large intravesical prostatic component. No concerns for malignancy on my review and again, the official report is pending, which I will review. Additional laboratory values, he had a urine cytology, which was negative for malignancy. His PSA, as stated, was 22 and creatinine is 1.1. We talked about followup and further suggestions. First, we talked about the recurrent hematuria. He definitely is not interested in any surgical intervention and I suggested a trial of finasteride, which, in addition to decreasing the prostate size for voiding symptoms, can also help with prostatic bleeding if this is the source. I did talk to him also about cystoscopy to complete the hematuria workup, which he does not wish to do at this time and understands this is not a complete hematuria workup without this. Today, his urinalysis was negative for blood in the urine of note. We are going to have him recheck a PSA back in his home area and have the results sent to us in the next few months. He would like to avoid another visit into [place] and we will have him follow up on an as-needed basis. I will call him if there are any concerns on the official report of the CT scan. documented in this encounter Plan of Treatment Not on file documented as of this encounter Procedures Procedure Name Priority Date/Time Associated Diagnosis Comments POCT URINE DIPSTICK, CLINITEK Routine 09/10/2016 11:28 EST Hematuria, gross documented in this encounter Results * (ABNORMAL) POCT URINE DIPSTICK (09/10/2016 11:28 EST) Color YELLOW 09/10/2016 11:35 [facility] Clarity, UA Clear 09/10/2016 11:35 [facility] Glucose Neg Neg 09/10/2016 11:35 [facility] Bilirubin Neg Neg 09/10/2016 11:35 [facility] Ketones Neg Neg 09/10/2016 11:35 [facility] Specific [place] 1.025 1.001 - 1.035 09/10/2016 11:35 [facility] Blood Trace(A) Neg 09/10/2016 11:35 [facility] pH 6.0 4.6 - 8.0 09/10/2016 11:35 [facility] Protein 2+(A) Neg 09/10/2016 11:35 [facility] Urobilinogen 0.2 0.2 - 1.0 E.U./dl 09/10/2016 11:35 [facility] Nitrite Neg Neg 09/10/2016 11:35 [facility] Leuk Esterase Neg Neg 09/10/2016 11:35 [facility] mechanical assembly ID [id number] 09/10/2016 11:35 [facility] Comment:Test performed at [facility] [place] Urine specimen (specimen) URINE / Unknown 09/10/2016 11:28 EST 09/10/2016 11:35 EST You Webster MD POINT OF CARE TEST ORDERABLES [facility] [address] [place] [address] documented in this encounter Visit Diagnoses Diagnosis Hematuria, gross- Primary Gross hematuria Retention of urine Retention of urine, unspecified Elevated PSA Elevated prostate specific antigen (PSA) documented in this encounter Historical Medications * This list may reflect changes made after this encounter. Medication Sig Dispensed Refills Start Date End Date FERROUS SULFATE, DRIED (IRON, DRIED, ORAL) Take by mouth. LOSARTAN POTASSIUM (LOSARTAN ORAL) Take by mouth. PAROXETINE HCL (PAXIL ORAL) Take 10 mg by mouth. added in this encounter Care Teams Leg Man Relationship Specialty Start Date End Date Maria R Falk MD PCP - General 09/04/16 08/17/19 documented as of this encounter
--- OUTSIDE RECORDS SUMMARY | 2024-03-24 10:18 | XMS_ITS | Continuity of Care Document ---
Author Organization [facility] Address [address] [place] [address] Care Team Providers Care Speech Instructor Name Role Phone Briana Rodas Primary Care Physician [phone] Encounter [facility] Date(s): 11/27/22 - 11/27/[address] [address] Discharge Disposition: Home or Self Care Attending Physician: Demar Braswell MD Admitting Physician: Demar Braswell MD Allergies, Adverse Reactions, Alerts Substance Reaction Severity Status tetracycline Moderate Active Indocin Moderate Active LEVI inhibitors Moderate Active Assessment and Plan Future Appointments Diagnostic Tests Pending * Urine Culture 11/27/22 Immunizations Given and Recorded Vaccine Date Status [...] disease) Confirmed Active Urinary retention Confirmed Active Procedures Procedure Date Related Diagnosis Body Site Status Cystoscopy 10/17/22 Completed Social History Social History Type Response Tobacco Never tobacco user T obacco Use:. Sex Male Patient Care team information Care Team Personnel Name: Briana Rodas PA-C Position: PowerChart View Only Member Role: Primary Care Physician Address: Address: [facility] [address], [place] [address] Care Team Related Persons Name: BARBARA MURPHY Address: Home [address] [place] [phone]
--- OUTSIDE RECORDS SUMMARY | 2024-03-24 10:19 | XMS_ITS | Encounter Summary ---
[place] [address] Care Team Providers Care Janitorial Maintenance Worker Name Role Phone Steph Chapin MD Primary Care Provider [phone] Encounter Details Date Type Department Care Team (Late st Contact Info) Description 06/28/2019 Ancillary Procedure [place] [phone] Steph Chapin MD [address] [place] [phone] Social History Tobacco Use Types Packs/Day Years Used Date Smoking Tobacco: Former Cigarettes Q uit: 09/11/1974 Alcohol Use Standard Drinks/Week Comments Yes 0 (1 standard drink = 0.6 oz pur e alcohol) Sex and Gender Information Value Date Recorded Sex Assigned at Not on file Gender Identity Not on file Sexual Orientation Not on file documented as of this encounter Plan of Treatment Not on file documented as of this encounter Procedures Procedure Name Priority Date/Time Associated Diagnosis Comments FILM LIBRARY STORAGE ONLY MR PELVIS Routine 06/28/2019 12:00 AM EDT documented in this encounter Results * Film Library- Storage Only MR Pelvis (06/28/2019 12:00 AM EDT) Narrative [facility] - 11/27/2022 7:12 PM EDT This exam is auto-finalizing. It's purpose is for storage only. Steph Chapin MD G FILM LIBRARY ORD ERABLES [facility] [place], [place] documented in this encounter Visit Diagnoses Not on filedocumented in this encounter Care Teams Janitorial Maintenance Worker Relationship Specialty Start Date End Date Steph Chapin MD [address] [place] [address] [place] [phone] PCP - General 07/31/10 documented as of this encounter
--- OUTSIDE RECORDS SUMMARY | 2024-03-24 10:19 | XMS_ITS | Encounter Summary ---
[place] [address] Care Team Providers Care C Wpf Developer Name Role Phone Steph Chapin MD Primary Care Provider [phone] Reason for Visit * Consultation (Routine) - Closed Specialty Diagnoses / Procedures Referred By [facility] Referred To Contact Urology Diagnoses Urinary retention BPH with obstruction/lower urinary tract symptoms Hydronephrosis Procedures Consult and treat Demar Braswell MD [address] [place] [address] [facility] [place] [address] Referral ID Status Reason Start Date Expiration Date Visits Re quested Visits Authorized [id number] Closed 01/09/2023 01/09/2024 1 1 Encounter Details Date Type Department Care Team (Latest Contact Info) Description 02/10/2023 10:40 AM EDT TH Visit (TeleHealth) [place] [address] Stephan Guerrero MD [facility] [place] [address] Benign prostatic hyperplasia, unspecified whether lower urinary tract symptoms present Social History Tobacco Use Types Packs/Day Years Used Date Smoking Tobacco: Former Cigarettes Q uit: 09/11/1974 Alcohol Use Standard Drinks/Week Comments Yes 0 (1 standard drink = 0.6 oz pur e alcohol) Sex and Gender Information Value Date Recorded Sex Assigned at Not on file Gender Identity Not on file Sexual Orientation Not on file documented as of this encounter Progress Notes * Stephan Guerrero MD - 02/10/2023 10:40 AM EDT Called patient for the appointment. Patient consented to proceed with a Telehealth visit and understands that this will be billed similar to a clinic visit. HPI 77 y.o. M who is referred by Dr. Braswell for BPH and mild left hydroureter of unknown origin. He has been doing CIC for 20yrs. He has not been overly bothered by this. But he has been getting slightly more frequent UTIs (~2x/year) He had UDS done 20yrs ago showing an atonic bladder Cystoscopy showed a small 12-14Fr bulbar urethral stricture Currently takes no medications for his prostate. Prostate size: 365cc prostate with very large intravesical portion. Intraprostatic portion measures~130cc. CTUrogram showed dilated ureter but no hydronephrosis and no filling defect. Anticoagulation? None (Not on ASA81) No prior abdominal surgeries PMH and PSH Reviewed. No relevant changes. Imaging personally reviewed: CT urogram (01/2023) Left kidney and ureter: No calculi or hydronephrosis. The ureter is mildly prominent with respect to the contralateral ureter not significantly changed from the comparison CT. 4.0 cm exophytic lower pole simple cyst. 1.8 cm exophytic cyst simple cyst projecting into the renal sinus. Additional subcentimeter hypoattenuating lesions too small to characterize. No enhancing ureteral mass. The distal ureter is unopacified. No calculi. Urinary bladder: The majority of the bladder lumen is occupied by a markedly enlarged prostate gland extending through the posterior bladder wall. Diffusely thickened bladder wall with a mildly trabeculated appearance, compatible with chronic bladder obstruction. Small superior diverticulum. Reproductive organs: Markedly enlarged, heterogenously enhancing, irregular prostate gland, similar in size and appearance to 10/31/2022 exam, measuring 8.1 x 12.2 x 7.2 cm, calculated volume 370 cc. The prostate extends into the posterior bladder wall and occupies much of the bladder lumen. IMPRESSION 1. Mild asymmetric dilatation of the left ureter similar to the comparison CT. No hydronephrosis. 2. Massive prostate enlargement. 3. Thickened bladder wall consistent with chronic bladder outlet obstruction. Assessment: 77M with severe BPH and mild dilation of left ureter down to the level of the bladder with no indentifiable mass or obstruction. 1) Mild left hydroureter No ureteral mass or obstruction. Likely a result of mild reflux. We can do a left retrograde pyelogram +/- URS in the future if the issue doesn't improve after treatment of his BPH. 2) BPH He has a massive prostate (365cc) that I believe is amenable to attempted laser enucleation given the large intravesical component. However, this would involve having to dilate his urethral stricturewhich could scar down again postop. If we were able to dilate and get our scope in, I gave him a 30% chance of having to either abort the enucleation or convert to an open simple prostatectomy due to the size of this prostate. The other option would be to proceed with a robotic laparoscopic simple prostatectomy with Dr. Temple. I explained that this would involve more of a recovery due to the incisions and dissection, however it would allow us to avoid aggravating his urethral stricture with significant scope manipulation. I made it clear that with either procedure, he would have a ~50% chance of getting catheter-free due to his atonic bladder. After discussion of the risks/benefits/recovery of each of these procedures, he has decided to proceed with the Robotic simple prostatectomy. We will aim to schedule this sometime in July (patient preference) with a preop appt with Dr. Temple between now and then. Plan: - Schedule RASP with Dr. Temple in July - Preop appt with Dr. Temple 2 months prior to this Greater than 50% of the TeleHealth visit was spent on the phone with the patient. Total time of this telehealth visit including decision making and planning was 60min Stephan Guerrero MD 02/10/2023 10:31 AM documented in this encounter Plan of Treatment Not on file documented as of this encounter Visit Diagnoses Diagnosis Benign prostatic hyperplasia, unspecified whether lower urinary tract symptoms present documented in this encounter Care Teams C Wpf Developer Relationship Specialty Start Date End Date Steph Chapin MD [address] [place] [address] [place] [phone] PCP - General 07/31/10 documented as of this encounter
--- OUTSIDE RECORDS SUMMARY | 2024-03-24 10:19 | XMS_ITS | Encounter Summary ---
Author Organization [facility] [place] [address] Care Team Providers Care Steam Table Worker Name Role Phone Steph Chapin MD Primary Care Provider [phone] Reason for Visit * Reason Onset Date Comments Eye Problem 09/27/2011 Encounter Details Date Type Department Care Team (Late st Contact Info) Description 09/27/2011 [place] [phone] Myron Stiles MD [facility] [address] [place] [address] Eye Problem Social History Tobacco Use Types Packs/Day Years Used Date Smoking Tobacco: Former Cigarettes Q uit: 09/11/1974 Alcohol Use Standard Drinks/Week Comments Yes 0 (1 standard drink = 0.6 oz pur e alcohol) Sex and Gender Information Value Date Recorded Sex Assigned at Not on file Gender Identity Not on file Sexual Orientation Not on file documented as of this encounter Miscellaneous Notes * Telephone Encounter - Bob Burr [facility]T - 09/27/2011 10:01 AM EST Forwarded to Shelia Meyers to schedule pt. * Telephone Encounter - Bob Burr COMT - 09/27/2011 10:00 AM EST Pt with known, recent repair of retinal tear, OD. NOT a diabetic. Had hemorrhage during that event as well. Pt reports >24 hours of new clouding of VA that began as a stringy line that patient feels is another hemorrhage. I offered the patient to come this afternoon. He is hesitant. My best recommendation was for today.([place] He was also offered to come Friday (after review with Dr Stiles). Pt will limit activity, elevate HOB and come at [address] Dave. documented in this encounter Plan of Treatment Not on file documented as of this encounter Visit Diagnoses Not on filedocumented in this encounter Care Teams Steam Table Worker Relationship Specialty Start Date End Date Steph Chapin MD [address] [place] [address] [address] [place] [phone] PCP - General 07/31/10 documented as of this encounter
--- OUTSIDE RECORDS SUMMARY | 2024-03-24 10:19 | XMS_ITS | Encounter Summary ---
[place] [address] Care Team Providers Care Air Drill Operator Name Role Phone Steph Chapin MD Primary Care Provider [phone] Encounter Details Date Type Department Care Team (Late st Contact Info) Description 10/31/2022 Ancillary Procedure [place] [phone] Steph Chapin MD [address] [place] [phone] Social History Tobacco Use Types Packs/Day Years [...] Associated Diagnosis Comments FILM LIBRARY STORAGE ONLY CT ABDOMEN AND PELVIS Routine 10/31/2022 12:00 AM EST documented in this encounter Results * Film Library- Storage Only CT Abdomen & Pelvis (10/31/2022 12:00 AM EST) Narrative [facility] - 11/27/2022 7:13 PM EDT This exam is auto-finalizing. It's purpose is for storage only. Steph Chapin MD IMG FILM LIBRARY ORD ERABLES [facility] [place], [place] documented in this encounter Visit Diagnoses Not on filedocumented in this encounter Care Teams Air Drill Operator Relationship Specialty Start Date End Date Steph Chapin MD [address] [place] [address] [place] [phone] PCP - General 07/31/10 documented as of this encounter
--- OUTSIDE RECORDS SUMMARY | 2024-03-24 10:19 | XMS_ITS | Encounter Summary ---
[place] [address] Care Team Providers Care Bacteriologist Soil Name Role Phone Steph Chapin MD Primary Care Provider [phone] Reason for Referral * Diagnostic Test (Routine) - Closed Specialty Diagnoses / Procedures Referred By Zion wright Referred To Contact Radiology Diagnoses Hydronephrosis, unspecified hydronephrosis type Hematuria, unspecified type Procedures CT Urogram Stephan Guerrero MD [facility] [place] [address] [facility] [place] [address] Referral ID Status Reason Start Date Expiration Date V isits Requested Visits Authorized [id number] Closed Specialty Service Requested 01/13/2023 07/16/2024 1 1 Reason for Visit * Diagnostic Test (Routine) - Closed Specialty Diagnoses / Procedures Referred By Zion wright Referred To Contact Radiology Diagnoses Hydronephrosis, unspecified hydronephrosis type Hematuria, unspecified type Procedures CT Urogram Stephan Guerrero MD [facility] [place] [address] [facility] [place] [address] Referral ID Status Reason Start Date Expiration Date V isits Requested Visits Authorized [id number] Closed Specialty Service Requested 01/13/2023 07/16/2024 1 1 Encounter Details Date Type Department Care Team (Latest Contact Info) Description 01/30/2023 1:46 PM EDT - 01/30/2023 11:59 PM EDT Hospital Encounter CT Scan [facility] [place] [address] Stephan Guerrero MD [facility] [place] [address] Hydronephrosis, unspecified hydronephrosis type; Hematuria, unspecified type Discharge Disposition: Home Social History Tobacco Use Types Packs/Day Years Used Date Smoking Tobacco: Former Cigarettes Q uit: 09/11/1974 Alcohol Use Standard Drinks/Week Comments Yes 0 (1 standard drink = 0.6 oz pur e alcohol) Sex and Gender Information Value Date Recorded Sex Assigned at Not on file Gender Identity Not on file Sexual Orientation Not on file documented as of this encounter Last Filed Vital Signs Vital Sign Reading Time Taken Comments Blood Pressure 202/81 01/30/2023 3:20 PM EDT Pulse - - Temperature - - Respiratory Rate - - Oxygen Saturation - - Inhaled Oxygen Concentration - - Weight - - Height - - Body Mass Index - - documented in this encounter Medications at Time of Discharge Medication Sig Dispensed Refills Start Date End Date PARoxetine (PAXIL) 10 mg tablet 08/07/2009 multivitamin (THERAGRAN) tablet 08/07/2009 FLURAZEPAM HCL (FLURAZEPAM ORAL) Take by mouth. 02/10/2023 aspirin 81 mg EC tablet 08/07/2009 06/0 01/2023 documented as of this encounter Plan of Treatment Not on file documented as of this encounter Procedures Procedure Name Priority Date/Time Associated Diagnosis Comments CT SCAN UROLOGY Routine 01/30/2023 3:20 PM EDT Hydronephrosis, unspecified hydronephrosis type Hematuria, unspecified type documented in this encounter Results * CT Urogram (01/30/2023 3:20 PM EDT) Anatomical Region Laterality Modality Abdomen, Pelvis Computed Tomogra phy Impressions 01/31/2023 9:45 AM EDT 1. ??Mild asymmetric dilatation of the left ureter similar to the comparison CT. No hydronephrosis. 2. ??Massive prostate enlargement. 3. ??Thickened bladder wall consistent with chronic bladder outlet obstruction. I have personally reviewed the image(s) and the resident's interpretation and agree with the findings, Maxim Dobbins MD at 01/31/2023 9:45 AM Thank you for letting us participate in the care of this patient. ??If you are a health care provider and have any questions regarding this report, please contact the number below. ??For patients who have questions please contact the health child care center administrator that requested your imaging first. ? Narrative 01/31/2023 9:45 AM EDT EXAMINATION: CT UROGRAM CLINICAL HISTORY: Left hydronephrosis TECHNIQUE: Helical CT of the abdomen and pelvis prior to and following the intravenous administration of contrast. Administered 104.0 ml of OMNIPAQUE 350.00 mg/ml. 3D VR and MIP images were reformatted on a separate workstation and reviewed as part of this study. COMPARISON: CT abdomen and pelvis 10/31/2022, MRI pelvis 06/28/2019 FINDINGS: Right kidney and ureter: No calculi, hydronephrosis or hydroureter. Multiple subcentimeter hypoattenuating lesions too small to characterize. No filling defect or abnormal wall thickening in the collecting system. Left kidney and ureter: No calculi or [...] with chronic bladder obstruction. Small superior diverticulum. Lower chest: No focal lung base consolidation or lung nodule. Bibasilar subsegmental atelectasis. Liver: Normal size normal attenuation. Small region of focal steatosis on the anterior aspect of the falciform ligament. No suspicious hepatic lesions. Bile ducts: Nondilated. Gallbladder: No calcified stones. Normal caliber wall. Pancreas: Normal. Spleen: Normal. Adrenals: Normal. Vasculature: Patent renal veins. No abdominal aortic aneurysm. Lymph Nodes: No enlarged lymph nodes. Bowel: Nondilated, no wall thickening. Normal appendix. Peritoneum and retroperitoneum: No free fluid. No pneumoperitoneum. No loculated fluid collection or mesenteric inflammation. Abdominal wall: Small bilateral fat-containing inguinal hernias with small focus of fluid and 2 punctate calcifications in the right inguinal canal. Reproductive organs: Markedly enlarged, heterogenously enhancing, irregular prostate gland, similar in size and appearance to 10/31/2022 exam, measuring 8.1 x 12.2 x 7.2 cm, calculated volume 370 cc. The prostate extends into the posterior bladder wall and occupies much of the bladder lumen. Osseous structures: No suspicious lesions. Spondylosis of the thoracolumbar spine. Procedure Note Maxim Dobbins MD - 01/31/2023 EXAMINATION: CT UROGRAM CLINICAL HISTORY: Left hydronephrosis TECHNIQUE: Helical CT of the abdomen and pelvis prior to and followingthe intravenous administration of contrast. Administered 104.0 ml ofOMNIPAQUE 350.00 mg/ml. 3D VR and MIP images were reformatted on a separateworkstation and reviewed as part of this study. COMPARISON: CT abdomen and pelvis 10/31/2022, MRI pelvis 06/28/2019 FINDINGS: Right kidney and ureter: No calculi, hydronephrosis or hydroureter.Multiple subcentimeter hypoattenuating lesions too small to characterize. Nofilling defect or abnormal wall thickening in the collecting system. Left kidney and ureter: No calculi or hydronephrosis. The ureter ismildly prominent with respect to the contralateral ureter not significantlychanged from the comparison CT. 4.0 cm exophytic lower pole simple cyst. 1.8 cm exophytic cyst simple cyst projecting into the renal sinus. Additional subcentimeter hypoattenuating lesions too small to characterize. Noenhancing ureteral mass. The distal ureter is unopacified. No calculi. Urinary bladder: The majority of the bladder lumen is occupied by amarkedly enlarged prostate gland extending through the posterior bladder wall.Diffusely thickened bladder wall with a mildly trabeculated appearance, compatiblewith chronic bladder obstruction. Small superior diverticulum. Lower chest: No focal lung base consolidation or lung nodule. Bibasilar subsegmental atelectasis. Liver: Normal size normal attenuation. Small region of focal steatosis onthe anterior aspect of the falciform ligament. No suspicious hepaticlesions. Bile ducts: Nondilated. Gallbladder: No calcified stones. Normal caliber wall. Pancreas: Normal. Spleen: Normal. Adrenals: Normal. Vasculature: Patent renal veins. No abdominal aortic aneurysm. Lymph Nodes: No enlarged lymph nodes. Bowel: Nondilated, no wall thickening. Normal appendix. Peritoneum and retroperitoneum: No free fluid. No pneumoperitoneum. Noloculated fluid collection or mesenteric inflammation. Abdominal wall: Small bilateral fat-containing inguinal hernias with smallfocus of fluid and 2 punctate calcifications in the right inguinal canal. Reproductive organs: Markedly enlarged, heterogenously enhancing,irregular prostate gland, similar in size and appearance to 10/31/2022 exam,measuring 8.1 x 12.2 x 7.2 cm, calculated volume 370 cc. The prostate extends into the posterior bladder wall and occupies much of the bladder lumen. Osseous structures: No suspicious lesions. Spondylosis of thethoracolumbar spine. IMPRESSION 1. Mild asymmetric dilatation of the left ureter similar to thecomparison CT. No hydronephrosis. 2. Massive prostate enlargement. 3. Thickened bladder wall consistent with chronic bladder outletobstruction. I have personally reviewed the image(s) and the resident's interpretationand agree with the findings, Maxim Dobbins MD at 01/31/2023 9:45 AM Thank you for letting us participate in the care of this patient. If youare a health care provider and have any questions regarding this report,please contact the number below. For patients who have questions please contactthe health child care center administrator that requested your imaging first. Stephan Guerrero MD IMG CT ORDERABLES documented in this encounter Visit Diagnoses Diagnosis Hydronephrosis, unspecified hydronephrosis type Hematuria, unspecified type documented in this encounter Administered Medications Inactive Administered Medications - up to 3 most recent administrations Medication Order MAR Action Action Date Dose Rate Site furosemide (Lasix) (10 mg/mL) injection 10 mg 10 mg, Intravenous, ONCE, 1 dose, On Kimberly 01/30/23 at 0715, Radiology Protocol Medication, Routine Given 01/30/2023 3:15 PM EDT 10 mg iohexoL (Omnipaque) (350 mg/mL) solution 0-200 mL 0-200 mL, Intravenous, ONCE PRN, 1 dose, Starting on Kimberly 01/30/23 at 1507, Until Kimberly 01/30/23 at 1507, Per Protocol, Warning Vesicant/Irritant Medication , Radiology Contrast, Routine Given 01/30/2023 3:07 PM EDT 104 mLs documented in this encounter Care Teams Bacteriologist Soil Relationship Specialty Start Date End Date Steph Chapin MD [address] [place] [address] [place] [phone] PCP - General 07/31/10 documented as of this encounter
--- OUTSIDE RECORDS SUMMARY | 2024-03-24 10:19 | XMS_ITS | Encounter Summary ---
Author Organization [facility] [place] [address] Care Team Providers Care Brewmaster Name Role Phone Steph Chapin MD Primary Care Provider [phone] Encounter Details Date Type Department Care Team (Late st Contact Info) Description 03/21/2023 [place] [phone] Stephan Guerrero MD [facility] [place] [address] Social History Tobacco Use Types Packs/Day Years [...] encounter Miscellaneous Notes * Telephone Encounter - Aletha Rodgers - 03/21/2023 2:33 PM EDT PT called and doesn't want to proceed with surgery at this time. He will call if/when he is ready and will see Dr. Temple in clinic prior. Pre-Op appointments for 05/23 have been cancelled as well ashis surgery on 07/18. Thank you Aletha documented in this encounter Plan of Treatment Not on file documented as of this encounter Visit Diagnoses Not on filedocumented in this encounter Care Teams Brewmaster Relationship Specialty Start Date End Date Steph Chapin MD [address] [place] [address] [address] [place] [address] PCP - General 07/31/10 documented as of this encounter
--- OUTSIDE RECORDS SUMMARY | 2024-03-24 10:19 | XMS_ITS | Encounter Summary ---
Author Organization [facility] [place] [address] Care Team Providers Care Lawn Care Professional Name Role Phone Steph Chapin MD Primary Care Provider [phone] Encounter Details Date Type Department Care Team (Late st Contact Info) Description 09/27/2011 [place] [phone] Myron Stiles MD [facility] [place] [address] Social History Tobacco Use Types Packs/Day Years [...] Telephone Encounter - Bob Burr COMT - 10/09/2011 3:40 PM EST Pt seen by Dr Dave documented in this encounter Plan of Treatment Not on file documented as of this encounter Visit Diagnoses Not on filedocumented in this encounter Care Teams Lawn Care Professional Relationship Specialty Start Date End Date Steph Chapin MD [address] [place] [address] [address] [place] [phone] PCP - General 07/31/10 documented as of this encounter
--- OUTSIDE RECORDS SUMMARY | 2024-03-24 10:19 | XMS_ITS | Encounter Summary ---
[place] [address] Care Team Providers Care Millwright Name Role Phone Steph Chapin MD Primary Care Provider [phone] Reason for Referral * Diagnostic Test (Routine) - Closed Specialty Diagnoses / Procedures Referred By Zion wright Referred To Contact Radiology Diagnoses Hydronephrosis, unspecified hydronephrosis type Hematuria, unspecified type Procedures CT Urogram Stephan Guerrero MD [facility] [address] [facility] [place] [address] Referral ID Status Reason Start Date Expiration Date V isits Requested Visits Authorized [id number] Closed Specialty Service Requested 01/13/2023 07/16/2024 1 1 Encounter Details Date Type Department Care Team (Late st Contact Info) Description 01/13/2023 [place] [address] Stephan Guerrero MD [facility] [place] [address] Hydronephrosis, unspecified hydronephrosis type; Hematuria, unspecified type Social History Tobacco Use Types Packs/Day Years [...] documented as of this encounter Results * CT Urogram (01/30/2023 [...] who have questions please contact the health housekeeper child care that requested your imaging first. ? Electronically signed by: Maxim Dobbins MD, [facility] ([phone]), at 01/31/2023 9:45 AM Narrative 01/31/2023 9:45 AM EDT EXAMINATION: CT [...] patients who have questions please contactthe health housekeeper child care that requested your imaging first. Electronically signed by: Maxim Dobbins MD, [facility]([phone]), at 01/31/2023 9:45 AM Stephan Guerrero MD IMG CT ORDERABLES documented in this encounter Visit Diagnoses Diagnosis Hydronephrosis, unspecified hydronephrosis type Hematuria, unspecified type Hydronephrosis, unspecified hydronephrosis type Hematuria, unspecified type documented in this encounter Care Teams Millwright Relationship Specialty Start Date End Date Steph Chapin MD [address] [place] [address] [place] [address] PCP - General 07/31/10 documented as of this encounter
--- OUTSIDE RECORDS SUMMARY | 2024-03-24 10:19 | XMS_ITS | Encounter Summary ---
Author Organization [facility] [place] [address] Care Team Providers Care Starch Mangle Tender Name Role Phone Steph Chapin MD Primary Care Provider [phone] Encounter Details Date Type Department Care Team (Late st Contact Info) Description 01/09/2023 [place] [phone] Lay Diana Social History Tobacco Use Types Packs/Day Years [...] encounter Miscellaneous Notes * Telephone Encounter - Lay Diana - 01/09/2023 1:07 PM EDT Pamela contacted office asking about a referral sent for NPW. Dr. Guerrero spoke to Dr. Hoffmann, Urology,and stated the patient would have a CT urogram and appointment scheduled. No referral or any officenotes, labs, etc. Were forwarded. No CT Urogram ordered as of today. Office will send a referral for this patient and I have contacted Dr. Guerrero to order a CT urogram for patient. documented in this encounter Plan of Treatment Not on file documented as of this encounter Visit Diagnoses Not on filedocumented in this encounter Care Teams Starch Mangle Tender Relationship Specialty Start Date End Date Steph Chapin MD [address] [place] [address] [place] [phone] PCP - General 07/31/10 documented as of this encounter
--- OUTSIDE RECORDS SUMMARY | 2024-03-24 10:19 | XMS_ITS | Encounter Summary ---
Author Organization [facility] [place] [address] Care Team Providers Care Driftman Name Role Phone Steph Chapin MD Primary Care Provider [phone] Encounter Details Date Type Department Care Team (Late st Contact Info) Description 06/18/2023 [place] [phone] Elijah Temple MD [facility] [place] [address] Social History Tobacco Use Types Packs/Day Years [...] encounter Miscellaneous Notes * Telephone Encounter - Kailee Hernandez - 06/18/2023 3:41 PM EDT Patient calling in, says he canceled surgery that had been scheduled for 07/[address] Temple as well as his pre op appointments on 05/23. Patient is now wishing to proceed with surgery again. PHONE: [phone] documented in this encounter Plan of Treatment Not on file documented as of this encounter Visit Diagnoses Not on filedocumented in this encounter Care Teams Driftman Relationship Specialty Start Date End Date Steph Chapin MD [address] [place] [address] [place] [phone] PCP - General 07/31/10 documented as of this encounter
--- OUTSIDE RECORDS SUMMARY | 2024-03-24 10:19 | XMS_ITS | Encounter Summary ---
Author Organization [facility] [place] [address] Care Team Providers Care Electric Organ Checker Name Role Phone Steph Chapin MD Primary Care Provider [phone] Encounter Details Date Type Department Care Team (Late st Contact Info) Description 08/07/2009 [place] [address] Lino Young MD [facility] [address] Social History Tobacco Use Types Packs/Day Years Used Date Smoking Tobacco: Never Assessed Sex and Gender Information Value Date Recorded Sex Assigned at Not on file Gender Identity Not on file Sexual Orientation Not on file documented as of this encounter Plan of Treatment Not on file documented as of this encounter Procedures Procedure Name Priority Date/Time Associated Diagnosis Comments SURGICAL PATHOLOGY REPORT Routine 08/07/2009 11:03 AM EST documented in this encounter Results * Surgical Pathology Report (08/07/2009 11:03 AM EST) Surgical Pathology Report [id number] ? Location: 3K The signing pathologist has (i) examined the relevant preparation(s) for the specimen(s) and (ii) rendered or confirmed the diagnosis(es). . ?Pathology Surgical Pathology Final Report Clinical Information Specimen Submitted: A - Right base B - Right mid C - Right apex D - Right lateral base E - Right lateral mid F - Right lateral apex G - Left base H - Left mid I - Left apex J - Left lateral base K - Left lateral mid L - Left lateral apex M - (R) base nodule Clinical History: DX: ??New right nodule, elevated PSA Clinical Diagnosis: Not provided Gross Description A - Labeled/Fixative: Right base prostate, formalin. Qty/Size/Weight: ?Single moya-white needle core biopsy, 1.8 x 0.1 cm. Sections/Processi ng: ??(T1) B - Labeled/Fixative: Right mid prostate, formalin. Qty/Size/Weight: ?Single moya-white needle core biopsy, 1.7 x 0.1 cm. Sections/Processi ng: ??(T1) C - Labeled/Fixative: Right apex prostate, formalin. Qty/Size/Weight: ?Single moya-white needle core biopsy, 1.6 x 0.1 cm. Sections/Processi ng: ??(T1) D - Labeled/Fixative: Right lateral base prostate, formalin. Qty/Size/Weight: ?Two moya-white needle core biopsies, 0.2 x 0.1 cm and ?0.5 x 0.1 cm. Sections/Processi ng: ??(T1) E - Labeled/Fixative: Right lateral mid prostate, formalin. Qty/Size/Weight: ?Single moya-white needle core biopsy, 1.4 x 0.1 cm. Sections/Processi ng: ??(T1) F - Labeled/Fixative: Right lateral apex prostate, formalin. Qty/Size/Weight: ?Single moya-white needle core biopsy, 1.5 x 0.1 cm. Sections/Processi ng: ??(T1) G - Labeled/Fixative: Left base prostate, formalin. Qty/Size/Weight: ?Two moya-white needle core biopsies, 0.6 x 0.1 cm and ?0.9 x 0.1 cm. Sections/Processi ng: ??(T1) H - Labeled/Fixative: Left mid prostate, formalin. . Gross Description Qty/Size/Weight: ?Single moya-white needle core biopsy, 1.5 x 0.1 cm. Sections/Processi ng: ??(T1) I - Labeled/Fixative: Left apex prostate, formalin. Qty/Size/Weight: ?Single moya-white needle core biopsy, 1.5 x 0.1 cm. Sections/Processi ng: ??(T1) J - Labeled/Fixative: Left lateral base prostate, formalin. Qty/Size/Weight: ?Single moya-white needle core biopsy, 1.4 x 0.1 cm. Sections/Processi ng: ??(T1) K - Labeled/Fixative: Left lateral mid prostate, formalin. Qty/Size/Weight: ?Single moya-white needle core biopsy, 2.0 x 0.1 cm. Sections/Processi ng: ??(T1) L - Labeled/Fixative: Left lateral apex prostate, formalin. Qty/Size/Weight: ?Single moya-white needle core biopsy, 1.8 x 0.1 cm. Sections/Processi ng: ??(T1) M - Labeled/Fixative: RT base nodule, formalin. Qty/Size/Weight: ?Two moya-white needle core biopsies, 0.3 x 0.1 cm and ?0.8 x 0.1 cm. Sections/Processi ng: ??(T1) ??aje/SNS Microscopic Description Slides reviewed, microscopic description not recorded. Diagnosis A - Prostatic core needle biopsy, right base: ?Benign prostatic tissue with chronic inflammation. B - Prostatic core needle biopsy, right mid: ?Benign prostatic tissue. C - Prostatic core needle biopsy, right apex: ?Benign prostatic tissue. D - Prostatic core needle biopsy, right lateral base: ?Benign fibromuscular tissue. E - Prostatic core needle biopsy, right lateral mid: ?Benign prostatic tissue with focal acute inflammation. F - Prostatic core needle biopsy, right lateral apex: ?Benign prostatic tissue. G - Prostatic core needle biopsy, left base: ?Benign prostatic tissue. H - Prostatic core needle biopsy, left mid: ?Benign prostatic tissue. I - Prostatic core needle biopsy, left apex: ?Benign prostatic tissue. J - Prostatic core needle biopsy, left lateral base: ?Benign prostatic tissue. K - Prostatic core needle biopsy, left lateral mid: ?Benign prostatic tissue. L - Prostatic core needle biopsy, left lateral apex: ?Benign prostatic tissue with acute and chronic inflammation. . Diagnosis M - Prostatic core needle biopsy, right base nodule: ?Benign prostatic tissue. CR-0 08/08/09 ML 08/09/09 Verified by: ? Manish AVELAR, Negro ?Pathologist ?(Electronic Signature) The attending pathologist whose signature appears on this report has reviewed all diagnostic slides and has edited the gross and/or microscopic portion of the report in rendering the final pathologic diagnosis. HEBER PEREZ 08/07/2009 11:0 3 AM EST Lino Young MD PATHOLOGY/CYTOLOGY O RDERABLES [facility] documented in this encounter Visit Diagnoses Not on filedocumented in this encounter Care Teams Electric Organ Checker Relationship Specialty Start Date End Date Steph Chapin MD [address] [place] [address] [address] [place] [address] PCP - General 07/31/10 07/31/10 documented as of this encounter
--- OUTSIDE RECORDS SUMMARY | 2024-03-24 10:19 | XMS_ITS | Encounter Summary ---
[place] [address] Care Team Providers Care Grounds Maintenance Manager Name Role Phone Steph Chapin MD Primary Care Provider [phone] Encounter Details Date Type Department Care Team (Late st Contact Info) Description 09/23/2003 [place] [id number] Alfa Dobbs MD UROLOGY Social History Tobacco Use Types Packs/Day Years [...] Associated Diagnosis Comments SURGICAL PATHOLOGY REPORT Routine 09/23/2003 10:17 AM EST documented in this encounter Results * Surgical Pathology Report (09/23/2003 10:17 AM EST) Surgical Pathology Report [id number] ? Location: The signing pathologist has (i) examined the relevant preparation(s) for the specimen(s) and (ii) rendered or confirmed the diagnosis(es). . ?Pathology Surgical Pathology Final Report Clinical Information Specimen Submitted: A - Right prostate Bx B - Left prostate Bx Clinical History: Inc. PSA FH Prostate Ca R/O ??Prostate Ca Gross Description A - Labeled/Fixative: Right, formalin. Qty/Size/Weight: ?Six needle core biopsies, each 0.1 cm in diameter and ?measuring 1.2 cm, 1.3 cm, 1.4 cm, 1.6 cm, 1.9 cm, and ?2.1 cm. Sections/Processing: ??(T3) B - Labeled/Fixative: Left, formalin. Qty/Size/Weight: ?Five intact needle core biopsies, each 0.1 cm in ?diameter and measuring 1.5 cm, 1.5 cm, 1.7 cm, 1.8 cm, and 1.8 cm respectively. ??Also received are smaller fragmented portions of core biopsy, aggregating 0.4 x 0.2 x 0.1 cm. Sections/Processing: ??(T3) ??aje/PPS Microscopic Description Slides reviewed, microscopic description not recorded. Immunohistochemistry Studies: Interpretation: See Comment. Immunohistochemical analysis was performed for CK34B on formalin fixed paraffin embedded sections B-2 and B-3 using the Avidin-Biotin Complex Technique with appropriate controls. These immunohistochemical studies provide ancillary information and are used only in conjunction with standard diagnostic procedures. Diagnosis A. Prostate, Right, Needle biopsies: ?-Benign Prostatic glands and stroma with focal atrophy. B. Prostate, Left, Needle biopsies: ?-Benign prostatic glands and stroma with focal atrophy. See ??Comment. 09/26/03 ORAL THERAPIST 09/27/03 Verified by: ? Norma Corral MD ?Pathologist ?(Electronic Signature) The attending pathologist whose signature appears on this report has reviewed all diagnostic slides and has edited the gross and/or microscopic portion of the report in rendering the final pathologic diagnosis. Comment Immunohistochemical staining with CK34B on blocks B-2 and B-3 show immunoreactivity in the basal cells. 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 [facility] 09/23/2003 10:1 7 AM EST Alfa Dobbs MD PATHOLOGY/CYTOLOGY O RDERABLES [facility] documented in this encounter Visit Diagnoses Not on filedocumented in this encounter Care Teams Grounds Maintenance Manager Relationship Specialty Start Date End Date Steph Chapin MD [address] [place] [address] [address] [place] [address] PCP - General 07/31/10 07/31/10 documented as of this encounter
--- OUTSIDE RECORDS SUMMARY | 2024-03-24 10:19 | XMS_ITS | Encounter Summary ---
[place] [address] Care Team Providers Care Mobile Home Laborer Name Role Phone Steph Chapin MD Primary Care Provider [phone] Encounter Details Date Type Department Care Team (Latest Contact Info) Description 01/23/2023 Travel Social History Tobacco Use Types Packs/Day [...] on filedocumented in this encounter Care Teams Mobile Home Laborer Relationship Specialty Start Date End Date Steph Chapin MD [address] [place] [address] [place] [phone] PCP - General 07/31/10 documented as of this encounter
--- OUTSIDE RECORDS SUMMARY | 2024-03-24 10:19 | XMS_ITS | Encounter Summary ---
Author Organization [facility] [place] [address] Care Team Providers Care Rehabilitation Nurse Name Role Phone Steph Chapin MD Primary Care Provider [phone] Reason for Visit * Reason Comments Spots and/or Floaters floaters OD Encounter Details Date Type Department Care Team (Late st Contact Info) Description 09/30/2011 9:00 AM EST Office [place] [address] Chelsey Dave MD [facility] DR [place] [address] Retinal defect, right (Primary Dx) Discharge Disposition: Home Social History Tobacco Use [...] as of this encounter Progress Notes * Chelsey Dave MD - 09/30/2011 11:58 AM EST OD: 1. S/p excellent laser barrier treatment to superior flap retinal tear at 1pm. 2. Residual vit heme, No new tears. Plan: Follow up in 2 weeks either locally with his OD/MD or here with Dr Kerns. Discussed at length. documented in this encounter Nursing Notes * 09/30/2011 9:00 AM EST >> CHELSEY DAVE MD FriSep 30, 2011 11:59 AM Just had recent laser OD for retinal tear at 1:00 o'clock. Still notes increasing floaters. No field defects. NADINE AVELAR >> KAROLINA HELTON FriSep 30, 2011 11:12 AM S/p laser to tear OD 09/17/2011 >> KAROLINA HELTON FriSep 30, 2011 9:30 AM Pt notes new sudden onset floaters OD beginning night (09/26). No flashes or curtain. Vision OD is cloudy. No eye pain. documented in this encounter Plan of Treatment Not on file documented as of this encounter Visit Diagnoses Diagnosis Retinal defect, right- Primary Retinal defect, unspecified documented in this encounter Care Teams Rehabilitation Nurse Relationship Specialty Start Date End Date Steph Chapin MD [address] [place] [address] [address] [place] [address] PCP - General 07/31/10 documented as of this encounter
--- OUTSIDE RECORDS SUMMARY | 2024-03-24 10:19 | XMS_ITS | Encounter Summary ---
Author Organization [facility] [address] Care Team Providers Care Manager Scheduling Name Role Phone Steph Chapin MD Primary Care Provider [phone] Encounter Details Date Type Department Care Team (Late st Contact Info) Description 04/02/2004 [place] [phone] Alfa Dobbs MD UROLOGY Social History Tobacco [...] Procedure Name Priority Date/Time Associated Diagnosis Comments NON-SALES TRADER FINAL REPORT Routine 04/02/2004 1:11 PM EDT documented in this encounter Results * Non-Cardroom Worker Final Report (04/02/2004 1:11 PM EDT) Non-Cardroom Worker Final Report [id number] ? Location: The signing pathologist has (i) examined the relevant preparation(s) for the specimen(s) and (ii) rendered or confirmed the diagnosis(es). . ? Pathology Non-Cardroom Worker Cytology Final Report Clinical Information Specimen Source: ?Urine, Catheter Clinical History/Impressi on: ?? H/o hematuria Gross Description: ?? Rec'd ??in Cytorich blue, ??approx. 50 ml. total volume of ??clear, yellow fluid. ?Total Prep - LBP 1. Interpretation Specimen submitted is satisfactory. Diagnosis Atypical 04/04/04 ?Screened by: ? FMQ ?Rescreened by: ?? EJG 04/04/04 ?Verified by: ? Wade Blackburn MD ? Pathologist ? (Electronic Signature) Comment A few atypical/degener ated transitional cells noted. Numerous neutrophils and red blood cells present. HEBER PEREZ 04/02/2004 1:11 PM EDT Alfa Dobbs MD PATHOLOGY/CYTOLOGY O RDERABLES HEBER PEREZ documented in this encounter Visit Diagnoses Not on filedocumented in this encounter Care Teams Manager Scheduling Relationship Specialty Start Date End Date Steph Chapin MD [address] [place] [address] [place] [address] PCP - General 07/31/10 07/31/10 documented as of this encounter
--- OUTSIDE RECORDS SUMMARY | 2024-03-24 10:19 | XMS_ITS | Encounter Summary ---
Author Organization [facility] Address [facility] [place] [address] Care Team Providers Care Manufacturing Executive Name Role Phone Steph Chapin MD Primary Care Provider [phone] Reason for Visit * Reason Comments Post Op s/p laser to tear OD on 09/17/11,no flashes or floaters since here Encounter Details Date Type Department Care Team (Late st Contact Info) Description 09/23/2011 2:00 PM EST [place] [address] Demar Kerns MD [facility] [place] [address] Posterior vitreous detachment, right eye with vitreous hemorrhage. Follow closely.; Horseshoe retinal tear, right eye: Now well treated. No new lesions Discharge Disposition: Home Social History Tobacco Use [...] as of this encounter Progress Notes * Demar Kerns MD - 09/23/2011 9:26 PM EST September 23, 2011 RE: Van Coronel Dear Dr. Vasquez: Thank you for asking me to provide consultation and care for Van Coronel, whom I saw over the past several weeks. As you know, he is a very pleasant gentleman, who was found to have a retinal tear in the right eye for which laser retinopexy and cryopexy were performed. When I saw Mr. Coronel on 09/11/2011, he presented with a vitreous separation and a mild vitreous hemorrhage. Followup evaluation on 09/17/2011, revealed a small superior retinal tear. I am seeing Mr. Coronel today on 09/23/2011. He indicates that his floaters are dissipating and that he is seeing well. He is not having any new symptoms such as visual field loss and the like. Mr. Coronel presented today measuring 20/20 in each eye. Intraocular pressures were 16 in each eye. Slit-lamp examination revealed early nuclear sclerosis, but no anterior segment pathology was noted. Superiorly, there was a small retinal tear, which was well treated. Careful indirect ophthalmoscopy did not reveal any signs of traction, hemorrhage, new holes, or other worrisome changes in the peripheral retina. Given travel concerns, Mr. Coronel would like to return to see you or Dr. Ender Eldridge for a followup visit in about two weeks from now. Mr. Coronel suggested the idea of seeing Dr. Eldridge, and he agrees that he should return to see you for continuity of care thereafter. I would of course like to see Mr. Coronel if there are any new questions or concerns or if either of you are out of town. He is well educated with the spectacle symptoms requiring immediate evaluation including flashes, floaters, and visual field changes. Previously, the fellow eye also looked good and no high-risk changes were evident. I am confident that you will enjoy seeing Mr. Coronel in your practice. Per his request, I will send a copy of my report to Dr. Ender Eldridge. Mr. Coronel can be reached at [phone]. Respectfully, CC: Steph Chapin MD Family Medicine [address] [place] [address] Ender Eldridge MD Ophthalmology [address] [place] [address], [facility] [address] [place] [address] documented in this encounter Nursing Notes * 09/23/2011 2:00 PM EST >> RUI Brice ENEIDA AVENDAÑO Mon Sep 23, 2011 2:16 PM Description:Patient presents with: Post Op - s/p laser to tear OD on 09/17/11,no flashes or floaters since here Location: Right eye Duration: 6 days Rapidity of Onset:sudden Severity: 1 Condition: IMPROVING Pain:0 Modifying Factors: laser Associated Symptoms: none documented in this encounter Plan of Treatment Not on file documented as of this encounter Visit Diagnoses Diagnosis Posterior vitreous detachment, right eye with vitreous hemorrhage. Follow closely. Vitreous degeneration Horseshoe retinal tear, right eye: Now well treated. No new lesions Horseshoe tear of retina without detachment documented in this encounter Care Teams Manufacturing Executive Relationship Specialty Start Date End Date Steph Chapin MD [address] [place] [address] [address] [place] [address] PCP - General 07/31/10 documented as of this encounter
--- OUTSIDE RECORDS SUMMARY | 2024-03-24 10:19 | XMS_ITS | Encounter Summary ---
Author Organization [facility] [place] [address] Care Team Providers Care Computer Drafter Name Role Phone Steph Chapin MD Primary Care Provider [phone] Encounter Details Date Type Department Care Team (Late st Contact Info) Description 09/24/2006 [place] [phone] Alfa Dobbs MD UROLOGY Social History Tobacco [...] Procedure Name Priority Date/Time Associated Diagnosis Comments NON-MIX MILL TENDER FINAL REPORT Routine 09/24/2006 2:49 PM EST documented in this encounter Results * Non-Letter Sorting Machine Operator Final Report (09/24/2006 2:49 PM EST) Non-Letter Sorting Machine Operator Final Report [id number] ? Location: The signing pathologist has (i) examined the relevant preparation(s) for the specimen(s) and (ii) rendered or confirmed the diagnosis(es). . ? Pathology Non-Letter Sorting Machine Operator Cytology Final Report Clinical Information Specimen Source: ?Urine, Voided. Clinical History/Impressio n: ?? Hematuria. Gross Description: ?? Rec'd in Cytorich blue, approx. 45 ml. total volume of cloudy, yellow fluid. ?Total Prep - LBP 2. Interpretation Specimen submitted is satisfactory. Diagnosis Atypical 09/30/06 ?Screened by: ? EAM ?Rescreened by: ?? EJG,EJG 09/30/06 ?Verified by: ? Wade Blackburn MD ? Pathologist ? (Electronic Signature) Comment A few mildly atypical transitional cells are noted The sample consists predominantly of numerous red blood cells. HEBER PEREZ 09/24/2006 2:49 PM EST Alfa Dobbs MD PATHOLOGY/CYTOLOGY O RDERABLES HEBER PEREZ documented in this encounter Visit Diagnoses Not on filedocumented in this encounter Care Teams Computer Drafter Relationship Specialty Start Date End Date Steph Chapin MD [address] [place] [address] [place] [phone] PCP - General 07/31/10 07/31/10 documented as of this encounter
--- OUTSIDE RECORDS SUMMARY | 2024-03-24 10:19 | XMS_ITS | Encounter Summary ---
Author [facility] [place] [address] Care Team Providers Care Production Planner Scheduler Name Role Phone Steph Chapin MD Primary Care Provider [phone] Encounter Details Date Type Department Care Team (Late st Contact Info) Description 08/25/2023 1:00 PM EST [place] [address] Elijah Temple MD [facility] [place] [address] BPH with obstruction/lower urinary tract symptoms Social History Tobacco Use Types Packs/Day Years [...] Index - - documented in this encounter Progress Notes * Elijah Temple MD - 08/25/2023 1:00 PM EST Patient Name: Van Coronel Date of Service: 08/25/2023 Primary Care Provider: Steph Chapin MD Outpatient Consultation Van Coronel is a 78 y.o. gentleman referred for evaluation of 1) BPH / Urinary retention History well summarized by Dr. Guerrero Below He has been doing CIC for 20yrs. [...] wall consistent with chronic bladder outlet obstruction. Past Medical History: Past Medical History: Diagnosis Date Allergy Anxiety Asthma GERD (gastroesophageal reflux disease) Past Surgical History: none Family History: There is no family history of disease or other urologic malignancies. Non-contributory Medications: Reviewed in EMR Allergies: Reviewed in EMR Systems review: 08/19/2023 7:09 AM REVIEW OF SYSTEMS Constitutional None of the above Ear / nose / throat / mouth None of the above Eyes None of the above Respiratory None of the above Cardiovascular None of the above Gastrointestinal None of the above Skin, hair None of the above Musculoskeletal None of the above Neurological None of the above Hematologic / Lymphatic None of the above Genitourinary Blood in urine Other urinary or genital symptoms Physical Exam: Vital Signs are reviewed. The patient appears healthy and in no distress. Lab values are reviewed in the EMR and and are as noted in the history. X-rays Have been independently reviewed and are as noted in the history. Impression: #1: BPH / Chronic urinary retention on CIC, >350cc gland #2: Non-obstructive hydroureter #3: Urethral stricture Plan: Recommend RAL Simple prostatectomy vs Continued CIC After discussion he decided against surgery at this time and would like to continue with current management I discussed that without UDS (which 20 years ago showed bladder atony) I could not offer more than a 50% probability of spontaneous voiding after surgery. We reviewed the recommendations for management of lower urinary tract symptoms related to presumed BPH which recommend lifestyle modification (bladder irritants, timed voiding, evening fluid decreases etc) as the first line of management. We discussed that when this fails, alpha blockers, 5ARI's and anticholinergics can be added. If medications fail then surgery is recommended. We discussed indications for surgery including failed medical management, bladder stones, infections and obstructive uropathy. We discussed surgical options including transurethral resection, laser ablation / enucliation and both minimally invasive and open enucliation and the risks and benefits of each. We discussed the risks of incontinence and recurrence associated with the various procedures. We discussed minimally invasive office procedures and I admitted that I do not perform these but would be glad to refer him tosomeone who does. We reviewed that given his stricture, Dr. Guerrero feels that retrograde surgery would not be possibleor exacerbate his stricture. We discussed the high failure rate of transurethral resection / ablation procedures in the setting of enlarged prostates (>75cc) and that many recommend enucleation (laser or surgical) in this setting. We discussed that considering the size of his prostate, he would have the most durable outcome withan enucleation procedure (transurethral or transabdominal). The majority of our discussion focused on simple prostatectomy, performed in either an open or robot assisted laparoscopic approach. With regards to lap simple prostatectomy we discussed the risk of bleeding, infection, pain and damage to adjacent organs. Expected post-operative course including overnight hospital admission, winston catheterization for approximately one week etc. We discussed the risk of urinary incontinence following surgery. I offered surgery but he declined. I am available at any time going forward if he would like to re-address or consider UDS etc. I answered all of his questions to the best of my ability. I will schedule him for surgery at a mutually convenient time. documented in this encounter Plan of Treatment Not on file documented as of this encounter Visit Diagnoses Diagnosis BPH with obstruction/lower urinary tract symptoms Hypertrophy of prostate with urinary obstruction and other lower urinary tract symptoms (LUTS) documented in this encounter Care Teams Production Planner Scheduler Relationship Specialty Start Date End Date Steph Chapin MD [address] [place] [address] [address] [place] [address] PCP - General 07/31/10 documented as of this encounter
--- OUTSIDE RECORDS SUMMARY | 2024-03-24 10:19 | XMS_ITS | Encounter Summary ---
Author Organization [facility] [place] [address] Care Team Providers Care Carburizer Name Role Phone Steph Chapin MD Primary Care Provider [phone] Reason for Visit * Reason Comments Eye Problem saw Oral Vaca, (09/06/11). Pt reports 2 weeks floater OD, changed into haze like looking through a scrim. haze like wax paper. Encounter Details Date Type Department Care Team (Late st Contact Info) Description 09/11/2011 9:15 AM EST Office [place] [address] Demar Kerns MD [facility] [place] [address] Vision changes (Primary Dx); Posterior vitreous detachment, right eye with vitreous hemorrhage. Follow closely. Discharge Disposition: Home Social History Tobacco Use [...] Progress Notes * Demar Kerns MD - 09/11/2011 1:09 PM EST September 11, 2011 Oral Colunga OD Cooling System Operator [facility] [address] [place] [address] RE: Van Alcantar#: [id number] Colunga, Thank you for asking me to provide emergency consultation for Van Coronel whom I saw on 09/11/2011. As you recall, he is a very pleasant gentleman who noticed floaters in his right eye about two weeks ago. You just saw him within the past 24 hours for vitreous hemorrhage in the right eye and requested formal consultation. In brief summary, Mr. Coronel indicates that his vision improved dramatically overnight. He denies any visual field loss, any history of pain, trauma, or family history of detachment. Van presented today measuring 20/25 in the right eye and 20/20 +3 in the left. Slit-lamp examination was unremarkable. The anterior chambers were deep in each eye. Posterior segment examination revealed good color and contour of the optic nerve. The retinal vessels and macula appeared normal. Importantly, in the right eye, indirect ophthalmoscopy including the use of scleral depression did not reveal any signs of a retinal detachment nor where there are signs of a retinal tear or hole. An excellent view of the superior 8 to 9 o'clock hours was secured. Inferiorly, there was a mild vitreous hemorrhage obscuring some of the peripheral retina. Also, importantly, I did not see any unusual focal traction, neovascularization, or high-risk pathology which might lead to a tear or detachment. Impression: 1. Acute posterior vitreous separation with vitreous hemorrhage, right eye. 2. No evidence of retinal hole, tear, traction, or neovascularization. 3. High-risk for progression to retinal tear or detachment (history of myopia, etc). Discussion: I have reviewed with Van all my findings and concerns today. I have reviewed with him the natural history of posterior vitreous separation and the mechanism for developing a vitreous hemorrhage. At this point in time only observation is indicated. I would like to see him in about five to six days from now or immediately should he any develop any flashes, new floaters, visual field loss, or other symptoms of concerns. Educational brochures were also provided to the patient. He is in agreement to return here next week; although, he is somewhat reluctant to return for further visits after that given the long travel to the [facility]. At this point, I think we should simply take things one step at a time and he has agreed to return here next week. You should have no hesitation in contacting the eye MD engineering consultant or myself for any symptoms, questions, or concerns whether that be during a week day or evenings or on the weekend. I am confident that Mr. Coronel has an excellent understanding of all the davidson issues involved. We will continue to follow him carefully. I will also be sure that Van returns to see you for continuity of care once all is stable. He may in fact be seeing you in several weeks' time. I will surprised how good the view was today given his history and this of course is good news. Respectfully, Demar Kerns M.D. [employer] HOB and safety issues thoroughly defined documented in this encounter Nursing Notes * 09/11/2011 9:15 AM EST >> ASHLEY RODRIGEZ, BEN Wed Sep 11, 2011 10:22 AM Description:Patient presents with: Eye Problem - saw Oral Colunga O.D., (09/06/11). Pt reports 2 weeks floater OD, changed into hazelike looking through a scrim. haze like wax paper. Location: right eye Duration: 2 days Rapidity of Onset:sudden Severity: unknown Condition:Worsening Pain:none Modifying Factors: Associated Symptoms: documented in this encounter Plan of Treatment Not on file documented as of this encounter Visit Diagnoses Diagnosis Vision changes- Primary Unspecified visual disturbance Posterior vitreous detachment, right eye with vitreous hemorrhage. Follow closely. Vitreous degeneration documented in this encounter Care Teams Carburizer Relationship Specialty Start Date End Date Steph Chapin MD [address] [place] [address] [address] [place] [address] PCP - General 07/31/10 documented as of this encounter
--- OUTSIDE RECORDS SUMMARY | 2024-03-24 10:19 | XMS_ITS | Encounter Summary ---
[place] [address] Care Team Providers Care Night Time Babysitter Name Role Phone Steph Chapin MD Primary Care Provider [phone] Encounter Details Date Type Department Care Team (Latest Contact Info) Description 08/25/2023 Travel Social History Tobacco Use Types Packs/Day [...] on filedocumented in this encounter Care Teams Night Time Babysitter Relationship Specialty Start Date End Date Steph Chapin MD [address] [place] [address] [place] [phone] PCP - General 07/31/10 documented as of this encounter
--- OUTSIDE RECORDS SUMMARY | 2024-03-24 10:19 | XMS_ITS | Encounter Summary ---
[place] [address] Care Team Providers Care Pleating Supervisor Name Role Phone Steph Chapin MD Primary Care Provider [phone] Encounter Details Date Type Department Care Team (Late st Contact Info) Description 01/28/2023 Orders [place] [phone] Rosanna Portillo RN Hydronephrosis, unspecified hydronephrosis type; Hematuria, unspecified type [...] documented as of this encounter Results * (ABNORMAL) Creatinine (01/30/2023 1:13 PM EDT) Creatinine 1.39 0.80 - 1.50 mg/dL [facility] Estimated GFR 52(L) >=60 mL/min/1. 73 m?? [facility] Comment: This patient's estimated GFR was calculated using the 2020 CKD-EPI equation. The estimated GFR can vary from the measured GFR by up to 30% in the absence of rapidly changing kidney function. Assessment of the estimated GFR is not appropriate when creatinine concentrations are rapidly changing. For clinical situations in which a more precise estimate of GFR is necessary, consider alternative methods of GFR estimation such as a 24-hour urine creatinine clearance. Assignment of CKD stage 1-5 for patients with an eGFR near the transition point between stages may be based on clinical assessment of muscle mass and symptoms in addition to eGFR. Blood 01/30/2023 1:13 PM EDT 01/30/2023 1:22 PM EDT Narrative Resulting Agency Comment Spec In Lab Stephan Guerrero MD CHEMISTRY ORDERABLES [facility] [place] [address] documented in this encounter Visit Diagnoses Diagnosis Hydronephrosis, unspecified hydronephrosis type Hematuria, unspecified type documented in this encounter Care Teams Pleating Supervisor Relationship Specialty Start Date End Date Steph Chapin MD [address] [place] [address] [address] [place] [address] PCP - General 07/31/10 documented as of this encounter
--- OUTSIDE RECORDS SUMMARY | 2024-03-24 10:19 | XMS_ITS | Encounter Summary ---
Author Organization [facility] [place] [address] Care Team Providers Care Ferryboat Helper Name Role Phone Steph Chapin MD Primary Care Provider [phone] Reason for Visit * Reason Comments Procedure Focal OD Encounter Details Date Type Department Care Team (Late st Contact Info) Description 09/17/2011 1:20 PM EST Procedure visit [place] [address] Demar Kerns MD [facility] [place] [address] Posterior vitreous detachment, right eye with vitreous hemorrhage. Follow closely. (Primary Dx) Discharge Disposition: Home Social History [...] Progress Notes * Demar Kerns MD - 09/17/2011 8:44 PM EST Did well despite blepharospasm 1 week STAT prn documented in this encounter Plan of Treatment Not on file documented as of this encounter Procedures Procedure Name Priority Date/Time Associated Diagnosis Comments REPAIR RETINAL BREAK(S)-LASER - OD - RIGHT EYE Routine 09/17/2011 8:43 PM EST Posterior vitreous detachment, right eye with vitreous hemorrhage. Follow closely. documented in this encounter Results * Repair Retinal Break(s) - Laser - OD - Right Eye (09/17/2011 8:43 PM EST) Laser Applications 440 Laser Total Energy Anatomical Region Laterality Modality Other Demar Kerns MD OPHTHALMOLOGY S [facility] ORDERABLES documented in this encounter Visit Diagnoses Diagnosis Posterior vitreous detachment, right eye with vitreous hemorrhage. Follow closely.- Primary Vitreous degeneration documented in this encounter Care Teams Ferryboat Helper Relationship Specialty Start Date End Date Steph Chapin MD [address] [place] [address] [address] [place] [phone] PCP - General 07/31/10 documented as of this encounter
--- OUTSIDE RECORDS SUMMARY | 2024-03-24 10:19 | XMS_ITS | Encounter Summary ---
[place] [address] Care Team Providers Care Math Specialist Name Role Phone Steph Chapin MD Primary Care Provider [phone] Encounter Details Date Type Department Care Team (Late st Contact Info) Description 10/07/2022 Ancillary Procedure [place] [phone] Steph Chapin MD [address] [place] [phone] Social History Tobacco Use Types Packs/Day Years [...] Associated Diagnosis Comments FILM LIBRARY STORAGE ONLY ULTRASOUND STUDY Routine 10/07/2022 12:00 AM EST documented in this encounter Results * Film Library- Storage Only Ultrasound Study (10/07/2022 12:00 AM EST) Narrative [facility] - 11/27/2022 7:12 PM EDT This exam is auto-finalizing. It's purpose is for storage only. Steph Chapin MD G FILM LIBRARY ORD ERABLES Performing Organization Address City/State/[facility] Co de Phone Number [facility] [place], [place] documented in this encounter Visit Diagnoses Not on filedocumented in this encounter Care Teams Math Specialist Relationship Specialty Start Date End Date Steph Chapin MD [address] [place] [address] [address] [place] [phone] PCP - General 07/31/10 documented as of this encounter
--- OUTSIDE RECORDS SUMMARY | 2024-03-24 10:19 | XMS_ITS | Encounter Summary ---
[place] [address] Care Team Providers Care Turbine Mechanic Name Role Phone Steph Chapin MD Primary Care Provider [phone] Encounter Details Date Type Department Care Team (Latest Contact Info) Description 01/30/2023 Travel Social History Tobacco Use Types Packs/Day [...] on filedocumented in this encounter Care Teams Turbine Mechanic Relationship Specialty Start Date End Date Steph Chapin MD [address] [place] [address] [place] [phone] PCP - General 07/31/10 documented as of this encounter
--- OUTSIDE RECORDS SUMMARY | 2024-03-24 10:19 | XMS_ITS | Encounter Summary ---
[place] [address] Care Team Providers Care Enrolled Nurse Name Role Phone Steph Chapin MD Primary Care Provider [phone] Encounter Details Date Type Department Care Team (Latest Contact Info) Description 01/30/2023 12:50 PM EDT Laboratory Appointment Lab [address] [place] [phone] Hematuria, unspecified type Social History Tobacco Use [...] Procedure Name Priority Date/Time Associated Diagnosis Comments HC CREATININE Routine 01/30/2023 1:13 PM EDT Hematuria, unspecified type documented in this encounter Results * (ABNORMAL) Creatinine (01/30/2023 1:13 PM EDT) Creatinine 1.39 0.80 - 1.50 mg/dL [facility] Estimated GFR 52(L) >=60 mL/min/1. 73 m?? [facility] Comment: This patient's estimated GFR [...] In Lab Stephan Guerrero MD CHEMISTRY ORDERABLES [facility] [place] [address] documented in this encounter Visit Diagnoses Diagnosis Hematuria, unspecified type documented in this encounter Care Teams Enrolled Nurse Relationship Specialty Start Date End Date Steph Chapin MD [address] [place] [address] [address] [place] [address] PCP - General 07/31/10 documented as of this encounter
--- OUTSIDE RECORDS SUMMARY | 2024-03-24 10:19 | XMS_ITS | Encounter Summary ---
Author Organization [facility] [place] [address] Care Team Providers Care Epic Cupid Specialists Name Role Phone Steph Chapin MD Primary Care Provider [phone] Encounter Details Date Type Department Care Team (Late st Contact Info) Description 06/29/2009 [place] [phone] Fifi Salcido PA [address] [place] [address] Social History Tobacco Use Types Packs/Day Years Used Date Smoking Tobacco: Never Assessed Sex and Gender Information Value Date Recorded Sex Assigned at Not on file Gender Identity Not on file Sexual Orientation Not on file documented as of this encounter Plan of Treatment Not on file documented as of this encounter Procedures Procedure Name Priority Date/Time Associated Diagnosis Comments NON-[facility] FINAL REPORT Routine 06/29/2009 2:47 PM EDT documented in this encounter Results * Non-Database Report Writer Final Report (06/29/2009 2:47 PM EDT) Non-Database Report Writer Final Report [id number] ? Location: 5B The signing pathologist has (i) examined the relevant preparation(s) for the specimen(s) and (ii) rendered or confirmed the diagnosis(es). . ? Pathology Non-Database Report Writer Cytology Final Report Clinical Information Specimen Source: ?Urine, Catheter: straight cath. Clinical History/Impressio n: ?? Hematuria. Gross Description: ?? Received ??in 50% ETOH, ??approximately 60 ml. total volume of ?? cloudy, yellow fluid. ?? Total Preparation: Liquid Based Prep 1. Interpretation Specimen submitted is satisfactory. Diagnosis Negative for Malignancy 06/30/09 ?Screened by: ? SQA ?Rescreened by: ?? BILLING REPRESENTATIVE 06/30/09 ?Verified by: ? Ellis AVELAR, Norma ? Pathologist ? (Electronic Signature) Comment Numerous degenerated white blood cells, rare urothelial cells and red blood cells are present. HEBER PEREZ 06/29/2009 2:47 PM EDT Fifi MACIAS PATHOLOGY/CYTOLOGY O RDERABLES HEBER PEREZ documented in this encounter Visit Diagnoses Not on filedocumented in this encounter Care Teams Epic Cupid Specialists Relationship Specialty Start Date End Date Steph Chapin MD [address] [place] [address] [address] [place] [address] PCP - General 07/31/10 07/31/10 documented as of this encounter
--- OUTSIDE RECORDS SUMMARY | 2024-03-24 10:19 | XMS_ITS | Encounter Summary ---
Author Organization [facility] [place] [address] Care Team Providers Care Tax Lawyer Name Role Phone Steph Chapin MD Primary Care Provider [phone] Reason for Visit * Reason Onset Date Comments Eye Problem 09/10/2011 right vitreous h [place] right eye( happened on 09/06/11) Encounter Details Date Type Department Care Team (Late st Contact Info) Description 09/10/2011 Telephone [place] [address] Demar Kerns MD [facility] DR OPHTHALMOLOGY [place] [address] Eye Problem (right vitreous [place] right eye( happened on 09/06/11) ) Social History Tobacco Use Types Packs/Day Years Used Date Smoking Tobacco: Never Assessed Sex and Gender Information Value Date Recorded Sex Assigned at Not on file Gender Identity Not on file Sexual Orientation Not on file documented as of this encounter Miscellaneous Notes * Telephone Encounter - Bob Burr COMT - 09/10/2011 3:17 PM EST Pt with a vitreous hemorrhage, OD. Pt noticed symptoms beginning around 2 weeks ago. Now 20/200 VA, OD. Non-diabetic and non-hypertensive patient. Reviewed with Dr Kerns, pt to come tomorrow AM * Telephone Encounter - Mayank Chun - 09/10/2011 2:43 PM EST Please contact the office of dr jackson when the appt is booked At [phone] ask for didi or leno documented in this encounter Plan of Treatment Not on file documented as of this encounter Visit Diagnoses Not on filedocumented in this encounter Care Teams Tax Lawyer Relationship Specialty Start Date End Date Steph Chapin MD [address] [place] [address] [address] [place] [address] PCP - General 07/31/10 documented as of this encounter
--- OUTSIDE RECORDS SUMMARY | 2024-03-24 10:19 | XMS_ITS | Encounter Summary ---
[place] [address] Care Team Providers Care Seasonal Greenery Bundler Name Role Phone Steph Chapin MD Primary Care Provider [phone] Encounter Details Date Type Department Care Team (Latest Contact Info) Description 08/19/2023 Travel Social History Tobacco Use Types Packs/Day [...] on filedocumented in this encounter Care Teams Seasonal Greenery Bundler Relationship Specialty Start Date End Date Steph Chapin MD [address] [place] [address] [place] [phone] PCP - General 07/31/10 documented as of this encounter
--- OUTSIDE RECORDS SUMMARY | 2024-03-24 10:19 | XMS_ITS | Encounter Summary ---
Author Organization [facility] [place] [address] Care Team Providers Care Milliner Helper Name Role Phone Steph Chapin MD Primary Care Provider [phone] Reason for Visit * Reason Comments Eye Problem 6 day chk, s/p PVS c vit heme OD, my eye is good, Encounter Details Date Type Department Care Team (Late st Contact Info) Description 09/17/2011 1:15 PM EST [place] [address] Demar Kerns MD [facility] DR [place] [address] Posterior vitreous detachment, right eye with vitreous [...] Notes * Demar Kerns MD - 09/17/2011 8:27 PM EST Treat tear at 1 now OD. Laser went well 1 week or STAT prn Warning symptoms reviewed Educational brochures and counseling documented in this encounter Nursing Notes * 09/17/2011 1:15 PM EST >> BEN LOTT Sep 17, 2011 1:20 PM Description:Patient presents with: Eye Problem - 6 day chk, s/p PVS c vit heme OD, my eye is good, Location: right eye Duration: 6 days Rapidity of Onset:unknown Severity: unknown Condition:Improving Pain:none Modifying Factors: Associated Symptoms: documented in this encounter Plan of Treatment Not on file documented as of this encounter Visit Diagnoses Diagnosis Posterior vitreous detachment, right eye with vitreous hemorrhage. Follow closely.- Primary Vitreous degeneration documented in this encounter Care Teams Milliner Helper Relationship Specialty Start Date End Date Steph Chapin MD [address] [place] [address] [address] [place] [phone] PCP - General 07/31/10 documented as of this encounter
--- OUTSIDE RECORDS SUMMARY | 2024-03-24 10:19 | XMS_ITS | Encounter Summary ---
Author Organization [facility] [place] [address] Care Team Providers Care Oceanographic Meteorologist Name Role Phone Steph Chapin MD Primary Care Provider [phone] Encounter Details Date Type Department Care Team (Late st Contact Info) Description 06/28/2008 [place] [address] Lino Lainez MD [facility] [place] [place] [address] Social History Tobacco Use Types Packs/Day Years Used Date Smoking Tobacco: Never Assessed Sex and Gender Information Value Date Recorded Sex Assigned at Not on file Gender Identity Not on file Sexual Orientation Not on file documented as of this encounter Plan of Treatment Not on file documented as of this encounter Procedures Procedure Name Priority Date/Time Associated Diagnosis Comments NON-FARM MORTGAGE AGENT FINAL REPORT Routine 06/28/2008 3:51 PM EDT documented in this encounter Results * Non-Contract Attorney Final Report (06/28/2008 3:51 PM EDT) Non-Contract Attorney Final Report [id number] ? Location: 5B The signing pathologist has (i) examined the relevant preparation(s) for the specimen(s) and (ii) rendered or confirmed the diagnosis(es). . ? Pathology Non-Contract Attorney Cytology Final Report Clinical Information Specimen Source: ?Urine, Voided Clinical History/Impression : ?? Hematuria. Gross Description: ?? Received ??in 50% ETOH, ??approximately 45 ml. total volume of ?? clear, jenny fluid. ?Total Preparation: Liquid Based Prep 1. Interpretation Specimen submitted is satisfactory. Diagnosis Negative for Malignancy 06/28/08 ?Screened by: ? RSU ?Rescreened by: ?? EJG 06/29/08 ?Verified by: ? Alexey AVELAR, Wade Love ? Cytopathologist ? (Electronic Signature) Comment Transitional cells, squamous cells, and numerous red blood cells are present. HEBER PEREZ 06/28/2008 3:51 PM EDT Lino Lainez MD PATHOLOGY/CYTOLOGY O RDERABLES Performing Organization Address City/State/[facility] Co de Phone Number HEBER PEREZ documented in this encounter Visit Diagnoses Not on filedocumented in this encounter Care Teams Oceanographic Meteorologist Relationship Specialty Start Date End Date Steph Chapin MD [address] [place] [address] [address] [place] [address] PCP - General 07/31/10 07/31/10 documented as of this encounter
[2024-03-24 22:27] LABS: ALT 21 U/L (16-63); AST 19 U/L (15-37); Albumin 3.6 g/dL (3.4-5.0); Alkaline Phosphatase 79 U/L (46-116); Anion Gap 10.7 mmol/L (3-11); BUN 37 mg/dL (7-18); Bilirubin, Total 0.49 mg/dL (0.2-1.0); CO2 26.3 mmol/L (21.0-32.0); CREATININE 1.8 mg/dL (0.70-1.30); Calcium 9.2 mg/dL (8.5-10.1); Chloride 105 mmol/L (98-107); Estimated GFR 37.82 (mL/min/1.73m2); Glucose 124 mg/dL (74-106); Potassium 4.1 mmol/L (3.5-5.1); Sodium 142 mmol/L (136-145); Total Protein 7.4 g/dL (6.4-8.2)
== END 2024-03-24 10:16 | disposition home or self-care (01) ==
LOC: NCHCN 10:15
PROVIDERS: PCP Physician Assistant; Visit Provider Physician Assistant
DX: I10 Essential (primary) hypertension (principal)
CPT/HCPCS: 80053

== ENCOUNTER 2024-03-30 09:19 | Outpatient (REF) | payer MEDICARE, SELFPAY ==
--- OUTSIDE RECORDS SUMMARY | 2024-03-30 09:21 | XMS_ITS | Encounter Summary ---
[place] [address] Care Team Providers Care Hospital Administrator Name Role Phone Steph Chapin MD Primary Care Provider [phone] Encounter Details Date Type Department Care Team [...] on filedocumented in this encounter Care Teams Hospital Administrator Relationship Specialty Start Date End Date Steph Chapin MD [address] [place] [address] [place] [phone] PCP - General 07/31/10 documented as of this encounter
--- OUTSIDE RECORDS SUMMARY | 2024-03-30 09:21 | XMS_ITS | Encounter Summary ---
[place] [address] Care Team Providers Care Pathology Laboratory Aide Name Role Phone Steph Chapin MD Primary Care Provider [phone] Reason for Visit * Consultation (Routine) - Closed Specialty Diagnoses / Procedures Referred By Zion wright Referred To Contact Urology Diagnoses Urinary retention BPH with obstruction/lower urinary tract symptoms Hydronephrosis Procedures Consult and treat Demar Braswell MD [address] [place] [address] [facility] [place] [address] Referral ID Status Reason Start Date Expiration Date Visits Re quested Visits Authorized [id number] Closed 01/09/2023 01/09/2024 1 1 Encounter Details Date Type Department Care Team (Latest Contact Info) Description 02/10/2023 10:40 AM EDT TH Visit (TeleHealth) [place] [address] Stephan Guerrero MD [facility] [place] [address] Benign prostatic hyperplasia, unspecified whether [...] present documented in this encounter Care Teams Pathology Laboratory Aide Relationship Specialty Start Date End Date Steph Chapin MD [address] [place] [address] [address] [place] [phone] PCP - General 07/31/10 documented as of this encounter
--- OUTSIDE RECORDS SUMMARY | 2024-03-30 09:21 | XMS_ITS | Encounter Summary ---
Author Organization [facility] [place] [address] Care Team Providers Care Painter Rough Name Role Phone Steph Chapin MD Primary Care Provider [phone] Encounter Details Date Type Department Care Team (Late st Contact Info) Description 08/25/2023 1:00 PM EST [place] [address] Elijah Temple MD [facility] [place] [address] BPH with obstruction/lower urinary tract symptoms Social [...] Urinary retention History well summarized by Dr. Guerreor Below He has been doing CIC for [...] (LUTS) documented in this encounter Care Teams Painter Rough Relationship Specialty Start Date End Date Steph Chapin MD [address] [place] [address] [place] [address] PCP - General 07/31/10 documented as of this encounter
--- OUTSIDE RECORDS SUMMARY | 2024-03-30 09:21 | XMS_ITS | Continuity of Care Document ---
Author Organization [facility], [facility] Address [address] [place] [address] Assessment No assessment recorded. Plan of Treatment Reminders Order Date Submit Date Provider Last Modified By Organization Details Last Modified Time Details Appointments Nurse Visit 20 2023 08:20A M [place] [facility] Not available Not available Not available Annual Wellness Exam 40 2024 08:00A M ESTEFANÍA HENRIQUEZ Not available Not available Not available Lab drug screen, urine 2023 [facility] (Registration ), [address] [place] [address] [place], [address], 03/30/2024 08:08:43 CMP, serum or plasma [address] [facility] (Registration ), [address] [place] [address] [place], [address], 03/24/2024 22:33:46 Referral None recorded. Procedures None recorded. Surgeries None recorded. Imaging None recorded. Medication Orders temazepam 22.5 mg capsule 2023 [id number], [address] [facility], [place], [address], 03/24/2024 10:44:18 Patient TargetsNo targets recorded. Patient Instructions Encounter Date Encounter Id Patient Instructions Last Modified By Organization Details Last Modified Time 03/24/2024 [id number] You had blood work done today. Please allow up to 2 weeks to hear about results. Go to local pharmacy to get shingles (shingrix) vaccine. This is a two shot series. You receive the second shot 2 to 6 months after the first shot. come back next week for urine test Call with any questions or concerns [email or web address] Not available 03/24/2024 09:49:04 Reason for Referral None Reported. Problems Name Status Onset Date Resolution Date Notes Provider Name and Address Organization Details Recorded Time Mild intermittent asthma Active 201703/09/2021 - Comments only - Estefanía MACIAS - - controlled with ventolin PRN. does not need maintenance inhaler at this time Problem Code: J45.20; Problem Code Type: ICD-10; Not Available [facility] 3 05:11:21 Major depression, single episode Active 201704/24/2023 - Comments only - Estefanía MACIAS - offered for pt to inc paxil further but he declines. recd to continue with 20mg dosing for another month and if no improvement then he can go back down to 10mg daily Problem Code: F32.9; Problem Code Type: ICD-10; Not Available [facility] 3 05:11:22 Essential hypertension Active 201703/21/2023 - Comments only - Estefanía MACIAS - BP well controlled. cont current medications. checking BW Problem Code: I10; Problem Code Type: ICD-10; Not Available [facility] 3 05:11:22 Glaucoma Active 201703/06/2021 - Comments only - Estefanía MACIAS - Continue care with Dr. Vasquez. Continue with eyedrops Problem Code: H40.9; Problem Code Type: ICD-10; Not Available [facility] 3 05:11:22 Anemia Active 201703/06/2021 - Comments only - Estefanía MACIAS - Checking a CBC. Patient is currently not having active bleeding. Problem Code: D64.9; Problem Code Type: ICD-10; Not Available [facility] 3 05:11:22 Insomnia Active 201703/21/2023 - Comments only - Estefanía MACIAS - Patient takes temazepam as needed. VPMS no concerns . No red flags. Patient taking appropriately . Discussion about sleep hygiene as well. Problem Code: G47.00; Problem Code Type: ICD-10; Not Available [facility] 3 05:11:22 Counseling Completed 201707/24/2018 06/12/2018 - Comments only - Leighton Peralta PA-C - Reviewed the COLST form. This was completed with the patient. He is DNR. Problem Code: Z71.89; Problem Code Type: ICD-10; Not Available [facility] 3 05:11:22 Increased frequency of urination Active 201708/16/2020 - Comments only - Estefnaía MACIAS - UA indicative of infection with large blood, large leuks and positive nitrites. Sending urine for culture. Patient has prescription for Bactrim at home. He is requesting a refill of his Bactrim to have on hand which I have sent to his pharmacy. Return to clinic if not improving or worsening symptoms Problem Code: R35.0; Problem Code Type: ICD-10; Not Available [facility] 3 05:11:22 Gastroesophag eal reflux disease without esophagitis Active 201803/20/2022 - Comments only - Estefanía MACIAS - Continue with omeprazole daily. Discussion about lifestyle modifications . Problem Code: K21.9; Problem Code Type: ICD-10; Not Available [facility] 3 05:11:22 Lower urinary tract symptoms due to benign prostatic hypertrophy Active 201803/06/2021 - Comments only - Estefanía MACIAS - Continue care with urology. Continue with self cathing with 14 [place]an catheter. Patient refuses to have surgery done for this. Continue with Bactrim as needed for infections. Problem Code: N40.1; Problem Code Type: ICD-10; Not Available [facility] 3 05:11:23 Prostate specific antigen above reference range Active 201803/21/2023 - Comments only - Estefanía MACIAS - cont care with [facility] urology Problem Code: R97.20; Problem Code Type: ICD-10; Not Available [facility] 3 05:11:23 Residual hemorrhoidal skin tags Active 201805/31/2019 - Comments only - Dennise Dewitt [employer]CIAL PLANNING ADVISOR - Nonthrombosed . He uses newy-[id number]-[id number] ter Preparation H with good relief. Recommend continuing this. Warm bath as needed. Follow-up if worsening. Problem Code: K64.4; Problem Code Type: ICD-10; Not Available [facility] 3 05:11:23 Blood in urine Active 201903/06/2020 - Comments only - Dennise Dewitt FIN[employer]CIAL PLANNING ADVISOR - Chronic, self cath at home. He did leave a urine for culture today. He denies any fever, chills or pain. He does have an ongoing prescription for Bactrim at home when he developed signs of an infection. Problem Code: R31.9; Problem Code Type: ICD-10; Not Available [facility] 3 05:11:23 Idiopathic osteoarthriti s Active 201903/06/2020 - Comments only - Dennise Dewitt FIN[employer]CIAL PLANNING ADVISOR - Aches and pains in bilateral hands consistent with arthritis. He can trial Tylenol twice a day. Follow-up if worsening or not improving. At this point is not interfering with ability to do his usual activities. Problem Code: M19.049; Problem Code Type: ICD-10; Not Available [facility] 3 05:11:23 Adult health examination Active 201903/21/2023 - Comments only - Estefanía MACIAS - - colon cancer screening refused d/t age - Cmp drawn today - recd shingrix at local pharmacy, otherwise utd on imms - Discussed healthy lifestyle choices Problem Code: Z00.00; Problem Code Type: ICD-10; Not Available [facility] 3 05:11:23 Localized eruption of skin Completed 202203/25/2023 Problem Code: R21; Problem Code Type: ICD-10; Not Available [facility] 3 05:11:23 Cataract Completed 202205/01/2023 Problem Code: H26.9; Problem Code Type: ICD-10; Not Available [facility] 3 05:11:23 Pre-surgery evaluation Completed 202205/01/2023 04/24/2023 - Comments only - Estefanía MACIAS - /cataracts patient s chronic medical issues are stable and reasonably controlled. Recommend routine perioperative care for upcoming low risk procedure. Problem Code: Z01.818; Problem Code Type: ICD-10; Not Available [facility] 3 05:11:24 Insect bite Completed 202203/21/2023 Not Available [facility] 3 05:11:24 Benign prostatic hyperplasia Completed 201706/17/2019 Problem Code: N40.0; Problem Code Type: ICD-10; Not Available [facility] 3 05:11:24 Uncomplicated asthma Completed 201706/04/2023 03/06/2021 - Comments only - Estefanía MACIAS - Continue with Ventolin inhaler as needed. Offered to update his prescription but he declines at this time. Problem Code: J45.909; Problem Code Type: ICD-10; Not Available [facility] 3 05:11:24 Not for resuscitation Active 2023 DNR order ESTEFANÍA HENRIQUEZ PA-C [address], [place], [address] , [facility] 4 17:17:07 Chronic kidney disease Active 2023 ESTEFANÍA HENRIQUEZ PA-C [address], [place], [address] , [facility] 4 17:28:28 Problem Notes None recorded. Medical Equipment None Reported. Allergies Allergen ID Allergen Name Allergen Category Reaction Reaction Severity Criticality Documentation Date Start Date Code Code System Note Provider Name and Address Organization Details Recorded Time 13003 tetracycl ine hydrochlo ride medicatio n headache moderate Not available 07/18/20232018 21326 6 RxNorm Heada tushar Not Available [facility] 3 16:21:48 59664 Product containin g angiotens in-conver ting enzyme inhibitor (product) medicatio n cough moderate Not available 07/18/20232017 73235 009 SNOMED cough Aller gyCod e: '0044 31236 30'; Aller gyNam e: 'LEVI INHIB ITORS '; Aller gyCon ceptT ype: 'NDC' ; Not Available [facility] 3 16:21:48 76010 Indocin medicatio n other moderate Not available 07/18/2023201736 5 RxNorm STODDARD Aller gyRea ction : 'STODDARD'; Aller gyCod e: '0040 77257 01'; Aller gyNam e: 'INDO LALITA'; Aller gyCon ceptT ype: 'NDC' ; Not Available [facility] 3 16:21:48 Medications Name Sig Start Date Stop Date Status Note LastModified by Organization Details LastModified Time losartan 50 mg tablet TAKE ONE TABLET BY MOUTH EVERY DAY active Not Available Not Available No t Available latanopro st 0.005 % eye drops INSTILL ONE DROP IN EACH EYE AT BEDTIME 03/24 completed Not Available Not Available Not Available paroxetin e 10 mg tablet TAKE ONE TABLET BY MOUTH EVERY DAY 03/24 completed Not Available Not Available Not Available sulfameth oxazole 800 mg-trimet hoprim 160 mg tablet TAKE ONE TABLET BY MOUTH TWICE A DAY FOR 7 DAYS 01/25 completed Not Available Not Available Not Available temazepam 7.5 mg capsule Take 1 capsule by mouth at bedtime 2021 active Not Available Not Available Not Avai lable ketorolac 0.5 % eye drops INSTILL ONE DROP IN THE RIGHT EYE FOUR TIMES A DAY 03/24 completed Not Available Not Available Not Available methenami ne hippurate 1 gram tablet TAKE ONE TABLET BY MOUTH TWICE A DAY active Not Available Not Available No t Available prednisol one acetate 1 % eye drops,natasha pension INSTILL ONE DROP IN THE RIGHT EYE TWICE A DAY 03/24 completed Not Available Not Available Not Available temazepam 15 mg capsule TAKE ONE CAPSULE BY MOUTH AT BEDTIME 01/25 completed Not Available Not Available Not Available calcium 500 mg (as calcium carbonate 1,250 mg) tablet 2018 active Not Available Not Available Not Avai lable doxycycli ne monohydra te 100 mg capsule Take 1 capsule by mouth twice a day 03/19 completed Not Available Not Available Not Available omeprazol e 20 mg capsule,d elayed release TAKE ONE CAPSULE BY MOUTH EVERY DAY 30 MINUTES BEFORE EATING ON AND EMPTY STOMACH active Not Available Not Available No t Available Aspir-81 mg tablet,de layed release Take 1 tab by mouth daily 06/12 completed Not Available Not Available Not Available flurazepa m 15 mg capsule Take 1 capsule by mouth at bedtime 05/07 completed Not Available Not Available Not Available finasteri de 5 mg tablet TAKE ONE TABLET BY MOUTH EVERY DAY 03/24 completed pt did not want to take anymore Not Available Not Available Not Available Ventolin HFA 90 mcg/actua tion aerosol inhaler Inhale 2 puff using inhaler every four hours as needed 2017 active Not Available Not Available Not Avai lable temazepam 22.5 mg capsule TAKE ONE CAPSULE BY MOUTH EVERY DAY NEEDED active Not Available Not Available No t Available Vitamin C active Not Available Not Aggie ilable Not Available multivita min 1 tab a day 02/28 completed Not Available Not Available Not Available Paxlovid 150 mg-100 mg tablets in a dose pack (Renal Dose) TAKE 2 TABLETS BY MOUTH TWICE A DAY FOR 5 DAYS; DO NOT TAKE TEMAZEPA M WHILE TAKING THIS MEDICATI ON 01/25 completed Not Available Not Available Not Available Vitals Date Recorded Body height Body mass index (BMI) Body weight Heart rate Systolic blood pressure Diastolic blood pressure Provider Name and Address Organization Details Last Updated DateTime 4 160.02 cm 21.8 kg/m2 39119.2 g 96 /min 132 mm[Hg] 64 mm[Hg] Omari Taylor RN [facility] 09:14:30 Date Recorded Oxygen saturation Oxygen saturation in Arterial blood by Pulse oximetry Provider Name and Address Organization Details Last Updated DateTime 03/24/2024 97 % 97 % ESTEFANÍA HENRIQUEZ PA-C [address], [place], [address], [facility] 03/24/2024 09:26:28 Social History Question Answer Notes LastModified by Organizat ion Details LastModified Time Tobacco Smoking Status Former Smoker Omari Taylor RN [facility], [facility] 03/24/2024 10:00:00 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 Never [email or web address] Information not available 03/24/2024 How Often Does Anyone, Including Family, Insult Or Talk Down To You? Never Information no t available 03/24/2024 How Often Does Anyone, Including Family, Threaten You With Harm? Never [email or web address] Information not available 03/24/2024 How Often Does Anyone, Including Family, Scream Or Curse At You? Never [email or web address] Information not available 03/24/2024 Within The Past 12 Months, You Worried That Your Food Would Run Out Before You Got Money To Buy More. Never True [email or web address] Information n ot available 03/24/2024 Within The Past 12 Months, The Food You Bought Just Didn't Last And You Didn't Have Money To Get More. Never True [email or web address] Information not available 03/24/2024 How Hard Is It For You To Pay For The Very Basics Like Food, Housing, Medical Care, And Heating? Would You Say It Is: Not Hard At All Information not available 03/24/2024 In The Past 12 Months, Has Lack Of Reliable Transportation Kept You From Medical Appointments, Meetings, Work Or From Getting Things Needed For Daily Living? No [email or web address] Information not available 03/24/2024 What Is Your Housing Situation Today? I Have Housing. [email or web address] Information not available 03/24/2024 How Often In The Past Year Have You Used Marijuana (including Smoking, Vaping, Dabbing, Or Edibles)? Never Information not available 03/24/2024 How Often In The Past Year Have You Used Prescription Medications That Were Not Prescribed To You? Never [email or web address] Information not available 03/24/2024 How Often In The Past Year Have You Taken Your Own Prescription Medication More Than The Way It Was Prescribed Or For Different Reasons Than Its Intended Purpose? Never [email or web address] Information not available 03/24/2024 How Often In The Past Year Have You Used Other Drugs (for Example, Heroin, Cocaine, Meth, Salvia, Inhalants)? Never [email or web address] Information not available 03/24/2024 Have You Ever Used IV Drugs? No [email or web address] Information not available 03/24/2024 Date Of Most Recent SBINS 03/24/2024 [email or web address] Information not available 03/24/2024 What Was The Date Of Your Most Recent Tobacco Screening? 03/24/2024 [email or web address] Information n ot available 03/24/2024 Has Tobacco Cessation Counseling Been Provided? No Information not available 03/24/2024 Do You Or Have You Ever Used Any Other Forms Of Tobacco Or Nicotine? No [email or web address] Information not available 03/24/2024 Sex: Male Functional Status None recorded. Mental Status None recorded. Family History Relationship Description Onset Age of this Age Resolved Age Notes Brother Family history of Hypertension Brother Family history of malignant neoplasm of lung Father Family history of malignant neoplasm Mother Family history of he art failure Brother Type 2 diabetes mellitus Notes:*Problem: Father - dec eased brain cancer/prostate Mother - cardiac Brother - alive Medical History No medical history recorded. Immunizations Vaccine Type Date Status Provider Name and Address Organization Details Recorded Time Tdap 12/30/2018 completed Not Available [facility] 05:31:19 Pneumococcal conjugate PCV 13 03/06/2021 completed Not Available [facility] 07/18/2023 05:31:20 Influenza, split virus, quadrivalent, preservative 06/12/2018 completed Not Available [facility] 07/18/2023 05:31:20 Influenza, high-dose, quadrivalent, PF 07/03/2022 completed Not Available [facility] 07/18/2023 05:31:21 COVID-19, mRNA, LNP-S, PF, 100 mcg/0.5mL dose or 50 mcg/0.25mL dose 11/08/2020 completed Not Available [facility] 07/18/2023 05:31:21 SARS-COV-2 (COVID-19) vaccine, UNSPECIFIED 10/09/2020 completed Not Available [facility] 07/18/2023 05:31:21 SARS-COV-2 (COVID-19) vaccine, UNSPECIFIED 07/18/2021 completed Not Available [facility] 07/18/2023 05:31:21 COVID-19, mRNA, LNP-S, bivalent, PF, 30 mcg/0.3 mL dose 07/03/2022 completed Not Available [facility] 07/18/20 05:31:22 pneumococcal polysaccharide PPV23 09/06/2013 completed Not Available [facility] 2022 05:31:22 influenza, unspecified formulation 06/08/2020 completed Not Available [facility] 07/18/2023 05:31:22 SARS-COV-2 (COVID-19) vaccine, UNSPECIFIED 08/15/2023 completed Omari Taylor RN [facility], [place] [facility] 03/22/2024 14:30:38 Past Encounters Encounter ID Performer Location Encounter Start Date Encounter Closed Date Diagnosis/Indication Diagnosis SNOMED-CT Code [id number] ESTEFANÍA HENRIQUEZ PA-C [facility] [address] [place] [address] 03/24/2024 09:03:06 03/24/2024 10:01:06 Insomnia 767557975 Essential hypertension 89315834 Prostate s pecific antigen above reference range 367337806 Increased frequency of urination 781034959 Adult heal th examination 375959172 Major depr ession, single episode [id number] Health Concerns Section Related Observation LastModified by Organization Detai ls LastModified Time None Recorded Concern Status LastModified by Organization Details LastModified Time None Recorded Payers Encounter Date Sequence Insurance Name Policy Number Policy Douglas Covered Member ID Douglas Member ID Guarantor Name 03/24/2024 1 [facility] (MEDICARE REPLACEMENT PPO) [id number] Van Coronel [id number] Van Coronel Notes Date Note Type Note Provider Name and Address Organization Details Recorded Time 03/24/2024 text/html HPI Notes: Kamar hardy presents for Annual Wellness Visit Insomnia: Patient is a 79-year-old male who has been experiencing insomnia. He has been prescribed temazepam for sleep and takes it approximately once a week. pt requests quantity to increase from 15 capsules at a time Essential Hypertension: Patient has a known history of essential hypertension. BP well controlled on losartan Urinary Frequency and Urgency: Patient occasionally experiences increased urinary frequency and urgency, going up to 6 times a day. He has been taking phenazopyridine to alleviate the symptoms. Elevated PSA: Patient has a history of elevated PSA levels. He is followed by Dr Braswell at [facility] for this hx of BPH recd for surgery but pt declines. he has to straight cath to empty his bladder no concerns today - Psychological: History of depression, stopped taking Paxil with no noticeable difference in mood. chronic SI- no intent or plan. ESTEFANÍA HENRIQUEZ PA-C [address], [place], [address], [facility]. 03/24/2024 16:23:12
--- OUTSIDE RECORDS SUMMARY | 2024-03-30 09:21 | XMS_ITS | Data Portability ---
Author Organization [place] - [facility] Address [address] [place] [address] Assessment No assessment recorded. Plan of Treatment Reminders Order Date Submit Date Provider Last Modified By Organization Details Last Modified Time Details Appointments Nurse Visit 20 2023 08:20A M Vikash Conway Nursing Staff Not available Not available Not available Annual Wellness Exam 40 2024 08:00A M ESTEFANÍA HENRIQUEZ Not available Not available Not available Lab drug screen, urine 2023 024 [facility] (Registration ), [address] [place] [address] [place], [address], 03/30/2024 08:08:43 CMP, serum or plasma 2023 024 [facility] (Registration ), [address] [place] [address] [place], [address], 03/24/2024 22:33:46 Referral None recorded. Procedures None recorded. Surgeries None recorded. Imaging None recorded. Medication Orders temazepam 22.5 mg capsule 2023 024 [employer] [address], [address] [facility], [place], [address], 03/24/2024 10:44:18 Patient TargetsNo targets recorded. Patient Instructions Encounter Date Encounter Id Patient Instructions Last Modified By Organization Details Last Modified Time 03/24/2024 [id number] You had blood work done today. Please [...] 03/24/2024 09:49:04 Reason for Referral None Reported. Results Created Date Observation Date Name Description Value Unit Range Abnormal Flag LastModifiedBy Organization Detail LastModifiedTime 03/24/20 24 03/24/2024 COMPR EHENS OFE METAB OLIC PANEL calcium 9.2 mg/dL 8.5-10 .1 normal Not Available [address] [place], [address] 03/24/2024 22:33:46 03/24/20 24 03/24/2024 COMPR EHENS OFE METAB OLIC PANEL glucose 124 mg/dL 74-106 high Not Available [address] [place], [address] 03/24/2024 22:33:46 03/24/20 24 03/24/2024 COMPR EHENS OFE METAB OLIC PANEL BUN 37 mg/dL 7-18 high Not Available [address] [place], [address] 03/24/2024 22:33:46 03/24/20 24 03/24/2024 COMPR EHENS OFE METAB OLIC PANEL creatinine 1.8 mg/dL 0.70-1 .30 high Not Available [address] [place], [address] 03/24/2024 22:33:46 03/24/20 24 03/24/2024 COMPR EHENS OFE METAB OLIC PANEL estimated GFR 37.82 mL/min /1.73m 2 Not Available [address] [place], [address] 03/24/2024 22:33:46 03/24/20 24 03/24/2024 COMPR EHENS OFE METAB OLIC PANEL total protein 7.4 g/dL 6.4-8. 2 normal Not Available [address] [place], [address] 03/24/2024 22:33:46 03/24/20 24 03/24/2024 COMPR EHENS OFE METAB OLIC PANEL albumin 3.6 g/dL 3.4-5. 0 normal Not Available [address] [place], [address] 03/24/2024 22:33:46 03/24/20 24 03/24/2024 COMPR EHENS OEF METAB OLIC PANEL bilirubin, total 0.49 mg/dL 0.2-1. 0 normal Not Available [address] [place], [address] 03/24/2024 22:33:46 03/24/20 24 03/24/2024 COMPR EHENS OFE METAB OLIC PANEL alk phos 79 U/L 46-116 normal Not Available [address] [place], [address] 03/24/2024 22:33:46 03/24/20 24 03/24/2024 COMPR EHENS OFE METAB OLIC PANEL sodium 142 mmol/ L 136-14 5 normal Not Available [address] [place], [address] 03/24/2024 22:33:46 03/24/20 24 03/24/2024 COMPR EHENS OFE METAB OLIC PANEL potassium 4.1 mmol/ L 3.5-5. 1 normal Not Available [address] [place], [address] 03/24/2024 22:33:46 03/24/20 24 03/24/2024 COMPR EHENS OFE METAB OLIC PANEL chloride 105 mmol/ L 98-107 normal Not Available [address] [place], [address] 03/24/2024 22:33:46 03/24/20 24 03/24/2024 COMPR EHENS OFE METAB OLIC PANEL CO2 26.3 mmol/ L 21.0-3 2.0 normal Not Available [address] [place], [address] 03/24/2024 22:33:46 03/24/20 24 03/24/2024 COMPR EHENS OFE METAB OLIC PANEL anion gap 10.7 mmol/ L 3-11 normal Not Available [address] [place], [address] 03/24/2024 22:33:46 03/24/20 24 03/24/2024 COMPR EHENS OFE METAB OLIC PANEL AST 19 U/L 15-37 normal Not Available [place] [address] [facility] [place], [address] 03/24/2024 22:33:46 03/24/20 24 03/24/2024 COMPR EHENS OFE METAB OLIC PANEL ALT 21 U/L 16-63 normal Not Available [address] [place], [address] 03/24/2024 22:33:46 Result Notes None recorded. Problems Name Status Onset Date Resolution Date Notes Provider Name and Address Organization Details Recorded Time Mild intermittent asthma Active 201703/09/2021 - Comments only - Estefanía MACIAS - - controlled with ventolin PRN. does not need maintenance inhaler at this time Problem Code: J45.20; Problem Code Type: ICD-10; Not Available [facility] 3 05:11:21 Major depression, single episode Active 201704/24/2023 - Comments only - Estefanía MACIAS - offered for pt to inc paxil further but he declines. recd to continue with 20mg dosing for another month and if no improvement then he can go back down to 10mg daily Problem Code: F32.9; Problem Code Type: ICD-10; Not Available [facility] 3 05:11:22 Essential hypertension Active 201703/21/2023 - Comments only - Estefanía MACIAS - BP well controlled. cont current medications. checking BW Problem Code: I10; Problem Code Type: ICD-10; Not Available [facility] 3 05:11:22 Glaucoma Active 201703/06/2021 - Comments only - Estefanía MACIAS - Continue care with Dr. Vasquez. Continue with eyedrops Problem Code: H40.9; Problem Code Type: ICD-10; Not Available [facility] 3 05:11:22 Anemia Active 201703/06/2021 - Comments only - Estefanía MACIAS - Checking a CBC. Patient is currently not having active bleeding. Problem Code: D64.9; Problem Code Type: ICD-10; Not Available [facility] 3 05:11:22 Insomnia Active 201703/21/2023 - Comments only - Estefanía MACIAS - Patient takes temazepam as needed. VPMS no concerns . No red flags. Patient taking appropriately . Discussion about sleep hygiene as well. Problem Code: G47.00; Problem Code Type: ICD-10; Not Available [facility] 3 05:11:22 Counseling Completed 201707/24/2018 06/12/2018 - Comments only - Leighton Peralta PA-C - Reviewed the COLST form. This was completed with the patient. He is DNR. Problem Code: Z71.89; Problem Code Type: ICD-10; Not Available [facility] 3 05:11:22 Increased frequency of urination Active 201708/16/2020 - Comments only - Estefanía MACIAS - UA indicative of infection with large blood, large leuks and positive nitrites. Sending urine for culture. Patient has prescription for Bactrim at home. He is requesting a refill of his Bactrim to have on hand which I have sent to his pharmacy. Return to clinic if not improving or worsening symptoms Problem Code: R35.0; Problem Code Type: ICD-10; Not Available [facility] 3 05:11:22 Gastroesophag eal reflux disease without esophagitis Active 201803/20/2022 - Comments only - Estefanía MACIAS - Continue with omeprazole daily. Discussion about lifestyle modifications . Problem Code: K21.9; Problem Code Type: ICD-10; Not Available [facility] 3 05:11:22 Lower urinary tract symptoms due to benign prostatic hypertrophy Active 201803/06/2021 - Comments only - Estefanía MACIAS - Continue care with urology. Continue with self cathing with 14 [place] catheter. Patient refuses to have surgery done for this. Continue with Bactrim as needed for infections. Problem Code: N40.1; Problem Code Type: ICD-10; Not Available [facility] 3 05:11:23 Prostate specific antigen above reference range Active 201803/21/2023 - Comments only - Estefanía MACIAS - cont care with [facility] urology Problem Code: R97.20; Problem Code Type: ICD-10; Not Available [facility] 3 05:11:23 Residual hemorrhoidal skin tags Active 201805/31/2019 - Comments only - Dennise Dewitt ASPHALT STILL OPERATOR - Nonthrombosed . He uses [id number] ter Preparation H with good relief. Recommend continuing this. Warm bath as needed. Follow-up if worsening. Problem Code: K64.4; Problem Code Type: ICD-10; Not Available [facility] 3 05:11:23 Blood in urine Active 201903/06/2020 - Comments only - Dennise Dewitt ASPHALT STILL OPERATOR - Chronic, self cath at home. He did leave a urine for culture today. He denies any fever, chills or pain. He does have an ongoing prescription for Bactrim at home when he developed signs of an infection. Problem Code: R31.9; Problem Code Type: ICD-10; Not Available [facility] 3 05:11:23 Idiopathic osteoarthriti s Active 201903/06/2020 - Comments only - Dennise Dewitt ASPHALT STILL OPERATOR - Aches and pains in bilateral hands consistent with arthritis. He can trial Tylenol twice a day. Follow-up if worsening or not improving. At this point is not interfering with ability to do his usual activities. Problem Code: M19.049; Problem Code Type: ICD-10; Not Available [facility] 3 05:11:23 Adult health examination Active 201903/21/2023 - Comments only - Estefanía MACIAS - - colon cancer screening refused d/t age - Cmp drawn today - recd shingrix at local pharmacy, otherwise utd on imms - Discussed healthy lifestyle choices Problem Code: Z00.00; Problem Code Type: ICD-10; Not Available [facility] 3 05:11:23 Localized eruption of skin Completed 202203/25/2023 Problem Code: R21; Problem Code Type: ICD-10; Not Available [facility] 3 05:11:23 Cataract Completed 202205/01/2023 Problem Code: H26.9; Problem Code Type: ICD-10; Not Available [facility] 3 05:11:23 Pre-surgery evaluation Completed 202205/01/2023 04/24/2023 - Comments only - Estefanía MACIAS - /cataracts patient s chronic medical issues are stable and reasonably controlled. Recommend routine perioperative care for upcoming low risk procedure. Problem Code: Z01.818; Problem Code Type: ICD-10; Not Available [facility] 3 05:11:24 Insect bite Completed 202203/21/2023 Not Available [facility] 3 05:11:24 Benign prostatic hyperplasia Completed 201706/17/2019 Problem Code: N40.0; Problem Code Type: ICD-10; Not Available [facility] 3 05:11:24 Uncomplicated asthma Completed 201706/04/2023 03/06/2021 - Comments only - Estefanía MACIAS - Continue with Ventolin inhaler as needed. Offered to update his prescription but he declines at this time. Problem Code: J45.909; Problem Code Type: ICD-10; Not Available [facility] 3 05:11:24 Not for resuscitation Active [address], [place], [address] , [facility] 4 17:17:07 Chronic kidney disease Active [address], [place], [address] , [facility] 4 17:28:28 Problem Notes None recorded. Medical Equipment None Reported. Allergies Allergen ID Allergen Name Allergen Category Reaction Reaction Severity Criticality Documentation Date Start Date Code Code System Note Provider Name and Address Organization Details Recorded Time 61836 tetracycl ine hydrochlo ride medicatio n headache moderate Not available 07/18/20232018 47421 6 RxNorm Heada tushar Not Available [facility] 3 16:21:48 92138 Product containin g angiotens in-conver ting enzyme inhibitor (product) medicatio n cough moderate Not available 07/18/20232017 33928 009 SNOMED cough Aller gyCod e: '0044 99911 '; Aller gyNam e: 'LEVI INHIB ITORS '; Aller gyCon ceptT ype: 'NDC' ; Not Available [facility] 3 16:21:48 71268 Indocin medicatio n other moderate Not available 07/18/20232017 83455 5 RxNorm STODDARD Aller gyRea ction : 'STODDARD'; Aller gyCod e: '0040 60120 '; Aller gyNam e: 'INDO LALITA'; Aller gyCon ceptT ype: 'NDC' ; Not Available [facility] 3 16:21:48 Medications Name Sig Start Date [...] Updated DateTime 4 160.02 cm 21.8 kg/m2 87687.2 g 96 /min 132 mm[Hg] 64 mm[Hg] Omari Taylor RN [facility] 09:14:30 Date Recorded Oxygen saturation Oxygen saturation in Arterial blood by Pulse oximetry Provider Name and Address Organization Details Last Updated DateTime 03/24/2024 97 % 97 % ESTEFANÍA HENRIQUEZ PA-C [address], [place], [address], [facility] 03/24/2024 09:26:28 Social History Question Answer Notes LastModified by Organizat ion Details LastModified Time Tobacco Smoking Status Former Smoker Omari Taylor RN [facility], [place] - 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 Never [email or web address] Information not available 03/24/2024 How Often Does Anyone, Including Family, Insult Or Talk Down To You? Never [email or web address] Information no t available 03/24/2024 How Often Does Anyone, Including Family, Threaten You With Harm? Never [email or web address] Information not available 03/24/2024 How Often Does Anyone, Including Family, Scream Or Curse At You? Never [email or web address] Information not available 03/24/2024 Within The Past 12 Months, You Worried That Your Food Would Run Out Before You Got Money To Buy More. Never True [email or web address] Information n ot available 03/24/2024 Within The Past 12 Months, The Food You Bought Just Didn't Last And You Didn't Have Money To Get More. Never True [email or web address] Information not available 03/24/2024 How Hard Is It For You To Pay For The Very Basics Like Food, Housing, Medical Care, And Heating? Would You Say It Is: Not Hard At All [email or web address] Information not available 03/24/2024 In The Past 12 Months, Has Lack Of Reliable Transportation Kept You From Medical Appointments, Meetings, Work Or From Getting Things Needed For Daily Living? No [email or web address] Information not available 03/24/2024 What Is Your Housing Situation Today? I Have Housing. [email or web address] Information not available 03/24/2024 How Often In The Past Year Have You Used Marijuana (including Smoking, Vaping, Dabbing, Or Edibles)? Never [email or web address] Information not available 03/24/2024 How Often In The Past Year Have You Used Prescription Medications That Were Not Prescribed To You? Never [email or web address] Information not available 03/24/2024 How Often In The Past Year Have You Taken Your Own Prescription Medication More Than The Way It Was Prescribed Or For Different Reasons Than Its Intended Purpose? Never [email or web address] Information not available 03/24/2024 How Often In The Past Year Have You Used Other Drugs (for Example, Heroin, Cocaine, Meth, Salvia, Inhalants)? Never [email or web address] Information not available 03/24/2024 Have You Ever Used IV Drugs? No [email or web address] Information not available 03/24/2024 Date Of Most Recent SBINS 03/24/2024 Information not available 03/24/2024 What Was The Date Of Your Most Recent Tobacco Screening? 03/24/2024 Information n ot available 03/24/2024 Has Tobacco Cessation Counseling Been Provided? No [email or web address] Information not available 03/24/2024 Do You Or Have You Ever Used Any Other Forms Of Tobacco Or Nicotine? No [email or web address] Information not available 03/24/2024 Sex: Male Functional [...] Recorded Time Tdap 12/30/2018 completed Not Available [facility] 05:31:19 Pneumococcal conjugate PCV 13 03/06/2021 completed Not Available [facility] 07/18/2023 05:31:20 Influenza, split virus, quadrivalent, preservative 06/12/2018 completed Not Available [facility] 07/18/2023 05:31:20 Influenza, high-dose, quadrivalent, PF 07/03/2022 completed Not Available [facility] 07/18/2023 05:31:21 COVID-19, mRNA, LNP-S, PF, 100 mcg/0.5mL dose or 50 mcg/0.25mL dose 11/08/2020 completed Not Available [facility] 07/18/2023 05:31:21 SARS-COV-2 (COVID-19) vaccine, UNSPECIFIED 10/09/2020 completed Not Available [facility] 07/18/2023 05:31:21 SARS-COV-2 (COVID-19) vaccine, UNSPECIFIED 07/18/2021 completed Not Available [facility] 07/18/2023 05:31:21 COVID-19, mRNA, LNP-S, bivalent, PF, 30 mcg/0.3 mL dose 07/03/2022 completed Not Available [facility] 07/18/20 23 05:31:22 pneumococcal polysaccharide PPV23 09/06/2013 completed Not Available [facility] 2022 05:31:22 influenza, unspecified formulation 06/08/2020 completed Not Available [facility] 07/18/2023 05:31:22 SARS-COV-2 (COVID-19) vaccine, UNSPECIFIED 08/15/2023 completed Omari Taylor RN [facility] 03/22/2024 14:30:38 Past Encounters Encounter ID Performer Location Encounter Start Date Encounter Closed Date Diagnosis/Indication Diagnosis SNOMED-CT Code [id number] ESTEFANÍA HENRIQUEZ PA-C [address] [address] 03/24/2024 09:03:06 03/24/2024 10:01:06 Insomnia 971280369 Essential hypertension 73264300 Prostate s pecific antigen above reference range 186863147 Increased frequency of urination 589742450 Adult heal th examination 219203779 Major depr ession, single episode 07990054 Health Concerns Section Related Observation LastModified by Organization Detai ls LastModified Time None Recorded Concern Status LastModified by Organization Details LastModified Time None Recorded Advance Directives Directive None Recorded Payers Encounter Date Sequence Insurance Name Policy Number Policy Douglas Covered Member ID Douglas Member ID Guarantor Name 03/24/2024 1 [facility] - MEDICARE ADVANTAGE (MEDICARE REPLACEMENT PPO) [id number] Van Coronel [id number] Van Coronel Notes Date Note Type Note [...] He is followed by Dr Braswell at [facility] for this hx of BPH recd for surgery but pt declines. he has to straight cath to empty his bladder no concerns today - Psychological: History of depression, stopped taking Paxil with no noticeable difference in mood. chronic SI- no intent or plan. [address], [place], [address], [place] - [facility]. 03/24/2024 16:23:12
--- OUTSIDE RECORDS SUMMARY | 2024-03-30 09:21 | XMS_ITS | Encounter Summary ---
Author Organization [facility] [place] [place] [address] Care Team Providers Care Printing Grey Cloth Tender Name Role Phone Steph Chapin MD Primary Care Provider [phone] Encounter Details Date Type Department Care Team (Late st Contact Info) Description 03/21/2023 Telephone [place] [id number] Stephan Guerrero MD [facility] [place] [address] Social History Tobacco Use Types Packs/Day Years [...] on filedocumented in this encounter Care Teams Printing Grey Cloth Tender Relationship Specialty Start Date End Date Steph Chapin MD [address] [place] [address] [address] [place] [id number] PCP - General 07/31/10 documented as of this encounter
--- OUTSIDE RECORDS SUMMARY | 2024-03-30 09:21 | XMS_ITS | Encounter Summary ---
Author Organization [facility] Address [address] [place] [address] Care Team Providers Care Windows Server Specialist Name Role Phone Maria R Falk MD Primary Care Provider Unavailable Reason for Visit * Reason Onset Date Comments New Patient Visit 09/10/201609/10 11:30. Fax should be here [address]rogram which was done 09/05 Encounter Details Date Type Department Care Team (Late st Contact Info) Description 09/10/2016 Telephone [facility] Urology - [facility] [address], [place] [address] You Webster MD [address] [place] [phone] New Patient Visit (09/10 11:30. Fax [...] on filedocumented in this encounter Care Teams Windows Server Specialist Relationship Specialty Start Date End Date Maria R Falk MD PCP - General 09/04/16 08/17/19 documented as of this encounter
--- OUTSIDE RECORDS SUMMARY | 2024-03-30 09:21 | XMS_ITS | Encounter Summary ---
Author Organization [facility] Address [address] [place] [address] Care Team Providers Care Polymerization Helper Name Role Phone Ousmanejade Dennise Chelo GOLF BALL MARKER Primary Care Provider [phone] Reason for Referral * Radiology Services (Routine) - Closed Specialty Diagnoses / Procedures Referred By Zion wright Referred To Contact Radiology Diagnoses Elevated PSA Benign prostatic hyperplasia with nocturia Procedures MR PROSTATE W Cristi Guzmán MD [address] [place] [phone] Referral ID Status Reason Start Date Expiration Date Visits Re quested Visits Authorized [id number] Closed 08/13/2020 02/09/2021 1 1 Reason for Visit * Radiology Services (Routine) - Closed Specialty Diagnoses / Procedures Referred By Zion wright Referred To Contact Radiology Diagnoses Elevated PSA Benign prostatic hyperplasia with nocturia Procedures MR PROSTATE W Cristi Guzmán MD [address] [place] [phone] Referral ID Status Reason Start Date Expiration Date Visits Re quested Visits Authorized [id number] Closed 08/13/2020 02/09/2021 1 1 Encounter Details Date Type Department Care Team (Latest Contact Info) Description 09/02/2020 11:43 EST - 09/02/2020 23:59 EST Hospital Encounter [facility] Radiology MRI - [address] [address] Elevated PSA; Benign prostatic hyperplasia with nocturia [...] 09/02/2020 documented in this encounter Care Teams Polymerization Helper Relationship Specialty Start Date End Date Dennise Dewitt NP PCP - General 08/22/20 documented as of this encounter
--- OUTSIDE RECORDS SUMMARY | 2024-03-30 09:21 | XMS_ITS | Encounter Summary ---
Author Organization [facility] Address [address] [place] [address] Care Team Providers Care Electric Motor Repairing Supervisor Name Role Phone Unknown, Provider Primary Care Provider [phone] Encounter Details Date Type Department Care Team (Late st Contact Info) Description 08/26/2016 Results Only [facility] [phone] Maria R Falk MD Social History Tobacco [...] ? CHRISTIANO CORONEL ? Accession #: ? [id number] : ? 1945 (Age: 71) ??M ?Collect [...] cellular enhancement technique. ? End of Report [facility] 08/26/2016 08/27/2016 11: 52 EST Maria R Falk MD PATHOLOGY ORDER [facility] [address] [place] [address] documented in this encounter Visit Diagnoses Not on filedocumented in this encounter Care Teams Electric Motor Repairing Supervisor Relationship Specialty Start Date End Date Unknown, Provider, PCP - General 08/26/16 09/03/16 documented as of this encounter
--- OUTSIDE RECORDS SUMMARY | 2024-03-30 09:21 | XMS_ITS | Clinical Summary ---
Author Organization [facility] Address [address] [place] [address] Care Team Providers Care Roof Plumber Name Role Phone Ousmanejade Dennise Whitney BINDERY MACHINE FEEDER OFFBEARER Primary Care Provider [phone] Allergies Active Allergy Reactions Criticality Noted Date [...] COVID-19 Vaccine (2022-24 season) 2023 Care Teams Roof Plumber Relationship Specialty Start Date End Date Dennise Dewitt NP PCP - General 08/22/20
--- OUTSIDE RECORDS SUMMARY | 2024-03-30 09:21 | XMS_ITS | Encounter Summary ---
Author Organization [facility] Address [address] [place] [address] Care Team Providers Care Industrial Services Worker Name Role Phone Maria R Falk MD Primary Care Provider Unavailable Encounter Details Date Type Department Care Team (Late st Contact Info) Description 06/29/2019 Results Only Imaging [facility] [phone] Unknown, Provider, Social History Tobacco Use Types [...] on filedocumented in this encounter Care Teams Industrial Services Worker Relationship Specialty Start Date End Date Maria R Falk MD PCP - General 09/04/16 08/17/19 documented as of this encounter
--- OUTSIDE RECORDS SUMMARY | 2024-03-30 09:21 | XMS_ITS | Encounter Summary ---
Author Organization [facility] Address [address] [place] [address] Care Team Providers Care Safety Patrol Officer Name Role Phone Ramses Porter MD Primary Care Provider [phone] Reason for Visit * Reason Comments Follow-up FU MRI, BPH W/Obstru ction * Referral (Urgent) - Closed Specialty Diagnoses / Procedures Referred By Contac t Referred To Contact Urology Diagnoses BPH (benign prostatic hyperplasia) Complication of catheter Dennise Dewitt, GEAR SETTER [address] [place] [address] You Webster MD [address] [place] [address] [place] [phone] Referral ID Status Reason Start Date Expiration Date Visits Re quested Visits Authorized [id number] Closed 1 1 Encounter Details Date Type Department Care Team (Late st Contact Info) Description 08/18/2019 10:30 EST Office Visit [facility] Urology - Main [place] [address] [place], [place] [address] You Webster MD [address] [facility] [address] [address] Retention, urine (Primary Dx) Social [...] catheterization. He wound up switching from a 14-Lithuanian to a 12-Lithuanian straight catheter. This has been somewhat more [...] 1030 EST Provided patient with both 12 Lithuanian and 14 maltese coloplast coude catheters to trial. I was supervised by Dr. Webster who was present and immediately available in the office suite. SUYAPA BEAR RN 08/18/2019 16:06 documented in this encounter Plan of Treatment Not on file documented as of this encounter Visit Diagnoses Diagnosis Retention, urine- Primary Retention of urine, unspecified documented in this encounter Care Teams Safety Patrol Officer Relationship Specialty Start Date End Date Ramses Porter MD [address] [place] [address] PCP - General 08/18/19 08/21/20 documented as of this encounter
--- OUTSIDE RECORDS SUMMARY | 2024-03-30 09:21 | XMS_ITS | Encounter Summary ---
Author Organization [facility] Address [address] [place] [address] Care Team Providers Care Suction Plate Carrier Cleaner Name Role Phone Dennise Dewitt WAIST FITTER Primary Care Provider [phone] Encounter Details Date Type Department Care Team [...] on filedocumented in this encounter Care Teams Suction Plate Carrier Cleaner Relationship Specialty Start Date End Date Dennise Dewitt NP PCP - General 08/22/20 documented as of this encounter
--- OUTSIDE RECORDS SUMMARY | 2024-03-30 09:21 | XMS_ITS | Encounter Summary ---
Author Organization [facility] Address [address] [place] [address] Care Team Providers Care Dope Worker Name Role Phone Ramses Porter MD Primary Care Provider [phone] Reason for Referral * Radiology Services (Routine) - Closed Specialty Diagnoses / Procedures [facility] Referred To Contact Radiology Diagnoses Elevated PSA Benign prostatic hyperplasia with nocturia Procedures MR PROSTATE W WO CONTRAST Cristi Carrera MD [address] [place] [phone] Referral ID Status Reason Start Date Expiration Date Visits Re quested Visits Authorized [id number] Closed 08/13/2020 02/09/2021 1 1 Reason for Visit * Reason Comments Follow-up Encounter Details Date Type Department Care Team (Late st Contact Info) Description 05/29/2020 11:30 EDT Office Visit [facility] Urology - [address] [phone] Cristi Carrera MD [address] [place] [phone] Elevated PSA (Primary Dx); Benign prostatic [...] updated in [facility] 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 added in this encounter Care Teams Dope Worker Relationship Specialty Start Date End Date Ramses Porter MD [address] [place] [address] PCP - General 08/18/19 08/21/20 documented as of this encounter
--- OUTSIDE RECORDS SUMMARY | 2024-03-30 09:21 | XMS_ITS | Encounter Summary ---
Author Organization [facility] Address [address] [place] [address] Care Team Providers Care Consultant Luxury [employer]. 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 Vice President [employer] (Ex ) Relationship Specialty Start Date End Date Dennise Dewitt NP PCP - General 08/22/20 documented as of this encounter
--- OUTSIDE RECORDS SUMMARY | 2024-03-30 09:21 | XMS_ITS | Encounter Summary ---
[place] [address] Care Team Providers Care Rivet Thrower Name Role Phone Steph Chapin MD Primary Care Provider [phone] Encounter Details Date Type Department Care Team (Late st Contact Info) Description 01/28/2023 [place] [phone] Rosanna Portillo RN Hydronephrosis, unspecified hydronephrosis type; [...] Guerrero MD CHEMISTRY ORDERABLES [facility] [place] [address] documented in this encounter Visit Diagnoses Diagnosis Hydronephrosis, unspecified hydronephrosis type Hematuria, unspecified type documented in this encounter Care Teams Rivet Thrower Relationship Specialty Start Date End Date Steph Chapin MD [address] [place] [address] [address] [place] [address] PCP - General 07/31/10 documented as of this encounter
--- OUTSIDE RECORDS SUMMARY | 2024-03-30 09:21 | XMS_ITS | Encounter Summary ---
Author Organization [facility] [place] [address] Care Team Providers Care Malt Liquors Sales Supervisor Name Role Phone Steph Chapin MD Primary Care Provider [phone] Encounter Details Date Type Department Care Team (Late st Contact Info) Description 06/18/2023 [place] [phone] Elijah Temple MD [facility] [place] [address] Social History Tobacco Use Types Packs/Day Years [...] wishing to proceed with surgery again. PHONE: [phone] documented in this encounter Plan of Treatment Not on file documented as of this encounter Visit Diagnoses Not on filedocumented in this encounter Care Teams Malt Liquors Sales Supervisor Relationship Specialty Start Date End Date Steph Chapin MD [address] [place] [address] [place] [phone] PCP - General 07/31/10 documented as of this encounter
--- OUTSIDE RECORDS SUMMARY | 2024-03-30 09:21 | XMS_ITS | Encounter Summary ---
Author Organization [facility] Address [address] [place] [address] Care Team Providers Care Fitness Services Manager Name Role Phone Ramses Porter MD Primary Care Provider [phone] Encounter Details Date Type Department Care Team (Late st Contact Info) Description 05/30/2020 Orders Only [facility] Radiology - Main [place] [address] [place] [address] Stevie Rivera MD [address] [place] [address] Social History Tobacco Use Types Packs/Day Years [...] on filedocumented in this encounter Care Teams Fitness Services Manager Relationship Specialty Start Date End Date Ramses Porter MD [address] [place] [address] PCP - General 08/18/19 08/21/20 documented as of this encounter
--- OUTSIDE RECORDS SUMMARY | 2024-03-30 09:21 | XMS_ITS | Encounter Summary ---
[place] [address] Care Team Providers Care Airplane Pilot Chief Name Role Phone Steph Chapin MD Primary Care Provider [phone] Encounter Details Date Type Department Care Team [...] on filedocumented in this encounter Care Teams Airplane Pilot Chief Relationship Specialty Start Date End Date Steph Chapin MD [address] [place] [address] [place] [phone] PCP - General 07/31/10 documented as of this encounter
--- OUTSIDE RECORDS SUMMARY | 2024-03-30 09:21 | XMS_ITS | Encounter Summary ---
[place] [address] Care Team Providers Care Phototypesetter Operator Name Role Phone Steph Chapin MD Primary Care Provider [phone] Reason for Referral * Diagnostic Test (Routine) - Closed Specialty Diagnoses / Procedures Referred By [facility] wright Referred To Contact Radiology Diagnoses Hydronephrosis, unspecified hydronephrosis type Hematuria, unspecified type Procedures CT Urogram Stephan Guerrero MD [facility] [place] [address] [facility] [place] [address] Referral ID Status Reason Start Date Expiration Date V isits Requested Visits Authorized [id number] Closed Specialty Service Requested 01/13/2023 07/16/2024 1 1 Encounter Details Date Type Department Care Team (Late st Contact Info) Description 01/13/2023 [place] [address] Stephan Guerrero MD [facility] [place] [address] Hydronephrosis, unspecified hydronephrosis type; Hematuria, [...] who have questions please contact the health care process manager that requested your imaging first. ? Electronically signed by: Maxim Dobbins MD, [facility] ([phone]), at 01/31/2023 9:45 AM Narrative 01/31/2023 9:45 [...] the resident's interpretationand agree with the findings, Maixm Dobbins MD at 01/31/2023 9:45 AM Thank you for letting us participate in the care of this patient. If youare a health care provider and have any questions regarding this report,please contact the number below. For patients who have questions please contactthe health care process manager that requested your imaging first. Electronically signed by: Maxim Dobbins MD, [facility]([phone]), at 01/31/2023 9:45 AM Stephan Guerrero MD IMG CT ORDERABLES documented in this encounter Visit Diagnoses Diagnosis Hydronephrosis, unspecified hydronephrosis type Hematuria, unspecified type Hydronephrosis, unspecified hydronephrosis type Hematuria, unspecified type documented in this encounter Care Teams Phototypesetter Operator Relationship Specialty Start Date End Date Steph Chapin MD [address] [place] [address] [place] [address] PCP - General 07/31/10 documented as of this encounter
--- OUTSIDE RECORDS SUMMARY | 2024-03-30 09:21 | XMS_ITS | Encounter Summary ---
Author Organization [facility] Address [address] [place] [address] Care Team Providers Care Manager University Name Role Phone Maria R Falk MD Primary Care Provider Unavailable Ramses Porter MD Primary Care Provider [phone] Reason for Visit * Reason Onset Date Comments Appointment Related 06/29/2019 Appointment Related 07/01/2019 Appointment Related 07/26/2019 canceled , call to reschedule Encounter Details Date Type Department Care Team (Late st Contact Info) Description 06/29/2019 Telephone [facility] Urology - [facility] [address] [place], [place] [phone] You Webster MD [address] [place] [phone] Appointment Related; Appointment Related; Appointment Related [...] filedocumented in this encounter Care Teams Manager University Relationship Specialty Start Date End Date Maria R Falk MD PCP - General 09/04/16 08/17/19 Ramses Porter MD [address] [place] [address] PCP - General 08/18/19 08/21/20 documented as of this encounter
--- OUTSIDE RECORDS SUMMARY | 2024-03-30 09:21 | XMS_ITS | Encounter Summary ---
Author Organization [facility] Address [address] [place] [address] Care Team Providers Care Freelance Translator Name Role Phone Maria R Falk MD Primary Care Provider Unavailable Reason for Visit * Reason Comments New Patient Visit Gross Hematuria, Pat ient self caths * Consult (Routine) - Closed Specialty Diagnoses / Procedures [facility] To Contact U[facility] Diagnoses BPH (benign prostatic hyperplasia) Bladder outlet obstruction Hematuria Maria R Falk MD [address] [place] [address] [facility] Urology [address] [place] [address] Referral ID Status Reason Start Date Expiration Date Visits Re quested Visits Authorized [id number] Closed 1 1 Encounter Details Date Type Department Care Team (Late st Contact Info) Description 09/10/2016 11:30 EST Office Visit [facility] Urology - Main [place] [address] [place] [address] You Webster MD [address] [place] [address] [address] [place] [address] Hematuria, gross (Primary Dx); Retention [...] would like to avoid another visit into [place] and we will have him follow up [...] (09/10/2016 11:28 EST) Color YELLOW 09/10/2016 11:35 [facility] Clarity, UA Clear 09/10/2016 11:35 [facility] Glucose Neg Neg 09/10/2016 11:35 [facility] Bilirubin Neg Neg 09/10/2016 11:35 [facility] Ketones Neg Neg 09/10/2016 11:35 [facility] Specific Crane 1.025 1.001 - 1.035 09/10/2016 11:35 [facility] Blood Trace(A) Neg 09/10/2016 11:35 [facility] pH 6.0 4.6 - 8.0 09/10/2016 11:35 [facility] Protein 2+(A) Neg 09/10/2016 11:35 [facility] Urobilinogen 0.2 0.2 - 1.0 E.U./dl 09/10/2016 11:35 [facility] Nitrite Neg Neg 09/10/2016 11:35 [facility] Leuk Esterase Neg Neg 09/10/2016 11:35 [facility] training coordinator ID [id number] 09/10/2016 11:35 [facility] Comment:Test performed at [facility] Urine specimen (specimen) URINE / Unknown 09/10/2016 11:28 EST 09/10/2016 11:35 EST You Webster MD POINT OF CARE TEST ORDERABLES [facility] [address] [place] [address] documented in this encounter Visit Diagnoses Diagnosis [...] mouth. added in this encounter Care Teams Freelance Translator Relationship Specialty Start Date End Date Maria R Falk MD PCP - General 09/04/16 08/17/19 documented as of this encounter
--- OUTSIDE RECORDS SUMMARY | 2024-03-30 09:21 | XMS_ITS | Encounter Summary ---
Author Organization [facility] Address [address] [place] [address] Care Team Providers Care Civil Preparedness Officer Name Role Phone Maria R Falk MD Primary Care Provider Unavailable Encounter Details Date Type Department Care Team (Late st Contact Info) Description 09/10/2016 Results Only Imaging [facility] [phone] Unknown, Provider, Social History Tobacco Use Types [...] on filedocumented in this encounter Care Teams Civil Preparedness Officer Relationship Specialty Start Date End Date Maria R Falk MD PCP - General 09/04/16 08/17/19 documented as of this encounter
--- OUTSIDE RECORDS SUMMARY | 2024-03-30 09:21 | XMS_ITS | Encounter Summary ---
[place] [address] Care Team Providers Care Fireworks Inspector Name Role Phone Steph Chapin MD Primary Care Provider [phone] Reason for Referral * Diagnostic Test (Routine) - Closed Specialty Diagnoses / Procedures Referred By [facility] wright Referred To Contact Radiology Diagnoses Hydronephrosis, unspecified hydronephrosis type Hematuria, unspecified type Procedures CT Urogram Stephan Guerrero MD [facility] [place] [address] [facility] [place] [address] Referral ID Status Reason Start Date Expiration Date V isits Requested Visits Authorized [id number] Closed Specialty Service Requested 01/13/2023 07/16/2024 1 1 Reason for Visit * Diagnostic Test (Routine) - Closed Specialty Diagnoses / Procedures Referred By Zion wright Referred To Contact Radiology Diagnoses Hydronephrosis, unspecified hydronephrosis type Hematuria, unspecified type Procedures CT Urogram Stephan Guerrero MD [facility] [place] [address] [facility] [place] [address] Referral ID Status Reason Start Date Expiration Date V isits Requested Visits Authorized [id number] Closed Specialty Service Requested 01/13/2023 07/16/2024 1 1 Encounter Details Date Type Department Care Team (Latest Contact Info) Description 01/30/2023 1:46 PM EDT - 01/30/2023 11:59 PM EDT Hospital En[facility] [place] [address] Stephan Guerrero MD [facility] [place] [address] Hydronephrosis, unspecified hydronephrosis type; Hematuria, unspecified type [...] who have questions please contact the health healthcare or medical that requested your imaging first. ? Narrative [...] patients who have questions please contactthe health healthcare or medical that requested your imaging first. Stephan Guerrero [...] mLs documented in this encounter Care Teams Fireworks Inspector Relationship Specialty Start Date End Date Steph Chapin MD [address] [place] [address] [place] [phone] PCP - General 07/31/10 documented as of this encounter
--- OUTSIDE RECORDS SUMMARY | 2024-03-30 09:21 | XMS_ITS | Encounter Summary ---
[place] [address] Care Team Providers Care Bowling Ball Molder Name Role Phone Steph Chapin MD Primary Care Provider [phone] Encounter Details Date Type Department Care Team [...] on filedocumented in this encounter Care Teams Bowling Ball Molder Relationship Specialty Start Date End Date Steph Chapin MD [address] [place] [address] [place] [phone] PCP - General 07/31/10 documented as of this encounter
--- OUTSIDE RECORDS SUMMARY | 2024-03-30 09:21 | XMS_ITS | Encounter Summary ---
Author Organization [facility] Address [address] [place] [address] Care Team Providers Care Cork Sorter Name Role Phone Ramses Porter MD Primary Care Provider [phone] Reason for Visit * Reason Onset Date Comments Appointment Related 06/02/2020 Encounter Details Date Type Department Care Team (Late st Contact Info) Description 06/02/2020 Telephone [facility] Urology - [address] [phone] Cristi Carrera MD [address] [facility], [address] [place] [address] Appointment Related Social History Tobacco [...] on filedocumented in this encounter Care Teams Cork Sorter Relationship Specialty Start Date End Date Ramses Porter MD [address] [place] [address] PCP - General 08/18/19 08/21/20 documented as of this encounter
--- OUTSIDE RECORDS SUMMARY | 2024-03-30 09:21 | XMS_ITS | Encounter Summary ---
[place] [address] Care Team Providers Care Tower Operator Name Role Phone Steph Chapin MD Primary Care Provider [phone] Encounter Details Date Type Department Care Team (Latest Contact Info) Description 01/30/2023 12:50 PM EDT Laboratory Appointment Lab [address] [place] [phone] Hematuria, unspecified type Social History Tobacco Use [...] EDT) Creatinine 1.39 0.80 - 1.50 mg/dL [facility] Estimated GFR 52(L) >=60 mL/min/1. 73 m?? [facility] Comment: This patient's estimated GFR [...] In Lab Stephan Guerrero MD CHEMISTRY ORDERABLES [facility] [place] [address] documented in this encounter Visit Diagnoses Diagnosis Hematuria, unspecified type documented in this encounter Care Teams Tower Operator Relationship Specialty Start Date End Date Steph Chapin MD [address] [place] [address] [address] [place] [address] PCP - General 07/31/10 documented as of this encounter
--- OUTSIDE RECORDS SUMMARY | 2024-03-30 09:21 | XMS_ITS | Encounter Summary ---
Author Organization [facility] Address [address] [place] [address] Care Team Providers Care Fleet Director Name Role Phone Ramses Porter MD Primary Care Provider [phone] Reason for Visit * Reason Comments Cystoscopy Encounter Details Date Type Department Care Team (Latest Contact Info) Description 09/03/2019 11:00 EST Procedure visit [facility] Urology - [facility] [address] [place], [place] [address] Scope, Cystoscopy Retention, urine (Primary Dx) Social [...] unspecified documented in this encounter Care Teams Fleet Director Relationship Specialty Start Date End Date Ramses Porter MD [address] [place] [address] PCP - General 08/18/19 08/21/20 documented as of this encounter
--- OUTSIDE RECORDS SUMMARY | 2024-03-30 09:21 | XMS_ITS | Encounter Summary ---
Author Organization [facility] Address [address] [place] [address] Care Team Providers Care Income Tax Administrator Name Role Phone Dennise Dewitt CAMPUS AMBASSADOR Primary Care Provider [phone] Encounter Details Date Type Department Care Team [...] on filedocumented in this encounter Care Teams Income Tax Administrator Relationship Specialty Start Date End Date Dennise Dewitt NP PCP - General 08/22/20 documented as of this encounter
--- OUTSIDE RECORDS SUMMARY | 2024-03-30 09:21 | XMS_ITS | Encounter Summary ---
Author Organization [facility] Address [address] [place] [address] Care Team Providers Care Solderer Barrel Ribs Name Role Phone Ramses Porter MD Primary Care Provider [phone] Reason for Visit * Reason Comments Follow-up Poss Cysto Encounter Details Date Type Department Care Team (Late st Contact Info) Description 09/03/2019 11:15 EST Office Visit [facility] Urology - [facility] [address] [place], [place] [phone] You Webster MD [address] [place] [phone] Retention, urine (Primary Dx) Social History [...] catheters. He has been using a 12- Albanian coude tipped catheter and this has been [...] is requesting his prescription to go to [facility]. Pt is requesting 1 catheter for the [...] Rios RN - 09/03/2019 1115 ESTAddended by: MALI RIOS on: 09/03/2019 13:16 Modules accepted: Orders documented in this encounter Plan of Treatment Not on file documented as of this encounter Visit Diagnoses Diagnosis Retention, urine- Primary Retention of urine, unspecified documented in this encounter Orders Equipment Count Last Ordered Date First Orde red Date GENERIC DME ORDER 2 09/03/2019 documented in this encounter Care Teams Solderer Barrel Ribs Relationship Specialty Start Date End Date Ramses Porter MD [address] [place] [address] PCP - General 08/18/19 08/21/20 documented as of this encounter
--- OUTSIDE RECORDS SUMMARY | 2024-03-30 09:21 | XMS_ITS | Referral Summary ---
Author Organization [facility] Address [address] [place] [address] Care Team Providers Care Reservoir Engineer Name Role Phone Dennise Dewitt Chelo GRAPHICS PRODUCTION SPECIALIST Primary Care Provider [phone] Allergies Active Allergy Reactions Criticality Noted Date [...] of Treatment Not on file Care Teams Reservoir Engineer Relationship Specialty Start Date End Date Dennise Dewitt NP [phone] (work) PCP - General 08/22/20
--- OUTSIDE RECORDS SUMMARY | 2024-03-30 09:21 | XMS_ITS | Encounter Summary ---
Author Organization [facility] Address [address] [place] [address] Care Team Providers Care Oil Lease Broker Name Role Phone Unavailable Primary Care Provider Unavailabl e Encounter Details Date Type Department Care Team (Late st Contact Info) Description 02/03/2004 Results Only [facility] [address] [place] [address] Nely Aguilar CRNA Social History Tobacco Use [...] ? CHRISTIANO CORONEL ? Accession #: ? [id number] : ? 1945 (Age: 58) ??M ?Collect Date: ? 02/03/2004 Location: ? [facility] ? Receive Date: ? 02/05/2004 Provider: ? NELY AGUILAR MD Copy to: ? CYTOLOGIC DIAGNOSIS: [...] 02/03/2004 02/05/2004 11: 53 EDT Nely Aguilar PRINTING SHOP SUPERVISOR PATHOLOGY ORDERABLES [facility] [address] [place] [address] documented in this encounter Visit Diagnoses Not on filedocumented in this encounter
--- OUTSIDE RECORDS SUMMARY | 2024-03-30 09:21 | XMS_ITS | Encounter Summary ---
Author Organization [facility] Address [address] [place] [address] Care Team Providers Care Oil Dispenser Name Role Phone Ramses Porter MD Primary Care Provider [phone] Dennise Dewitt NP Primary Care Provider [phone] Encounter Details Date Type Department Care Team (Late st Contact Info) Description 08/10/2020 Lab [facility] [address] [place] [address] Outr Resulting Lab, Provider Social History Tobacco [...] 0.0 - 6.5 ng/mL 08/10/2020 19:09 EST [facility] Blood VENOUS BLOOD / Unknown 08/09/2020 11:00 EST 08/10/2020 17:53 EST Narrative [facility] - 08/10/2020 19:09 EST NOTE: Serum PSA concentration should not be interpreted as absolute evidence for the presence or absence of malignant disease. Assayed on Siemens WatsinIA HighWire Pressaur XPT using chemiluminescent technology.??Values obtained by using different assay methods cannot be used interchangeably. Provider Outr Resulting Lab CHEMISTRY & BLOOD GAS ORDERABLES [facility] [address] [place] [address] documented in this encounter Visit Diagnoses Not on filedocumented in this encounter Care Teams Oil Dispenser Relationship Specialty Start Date End Date Ramses Porter MD [address] [place] [address] PCP - General 08/18/19 08/21/20 Dennise Dewitt NP [address] [place] [address] PCP - General 08/22/20 documented as of this encounter
--- OUTSIDE RECORDS SUMMARY | 2024-03-30 09:21 | XMS_ITS | Encounter Summary ---
[place] [address] Care Team Providers Care Financial Systems Director Name Role Phone Steph Chapin MD Primary Care Provider [phone] Encounter Details Date Type Department Care Team [...] on filedocumented in this encounter Care Teams Financial Systems Director Relationship Specialty Start Date End Date Steph Chapin MD [address] [place] [address] [place] [phone] PCP - General 07/31/10 documented as of this encounter
--- OUTSIDE RECORDS SUMMARY | 2024-03-30 09:21 | XMS_ITS | Clinical Summary ---
Author Organization [facility] Address [facility] [place] [address] Care Team Providers Care Tare Man Name Role Phone Steph Chapin MD Primary Care Provider [phone] Allergies Active Allergy Reactions Criticality Noted Date [...] Influenza standard series) 05/09/2024 06/28/2008 Care Teams Tare Man Relationship Specialty Start Date End Date Steph Chapin MD [address] [place] [address] [address] [place] [phone] PCP - General 07/31/10
--- OUTSIDE RECORDS SUMMARY | 2024-03-30 09:22 | XMS_ITS | Encounter Summary ---
Author Organization [facility] [place] [address] Care Team Providers Care Branch Mechanic Name Role Phone Steph Chapin MD Primary Care Provider [phone] Reason for Visit * Reason Comments Procedure Focal OD Encounter Details Date Type Department Care Team (Late st Contact Info) Description 09/17/2011 1:20 PM EST Procedure [place] [address] Demar Kerns MD [facility] DR O[place]THALM[place] [address] Posterior vitreous detachment, right eye with vitreous [...] Modality Other Demar Kerns MD OPHTHALMOLOGY S [facility] ORDERABLES documented in this encounter Visit Diagnoses Diagnosis Posterior vitreous detachment, right eye with vitreous hemorrhage. Follow closely.- Primary Vitreous degeneration documented in this encounter Care Teams Branch Mechanic Relationship Specialty Start Date End Date Steph Chapin MD [address] [place] [address] [address] [place] [address] PCP - General 07/31/10 documented as of this encounter
--- OUTSIDE RECORDS SUMMARY | 2024-03-30 09:22 | XMS_ITS | Encounter Summary ---
Author Organization [facility] [place] [address] Care Team Providers Care Fuel Cell Technician Name Role Phone Steph Chapin MD Primary Care Provider [phone] Reason for Visit * Reason Comments Eye Problem saw Oral Vaca, (09/06/11). Pt reports 2 weeks floater OD, changed into haze like looking through a scrim. haze like wax paper. Encounter Details Date Type Department Care Team (Late st Contact Info) Description 09/11/2011 9:15 AM EST Office Visit [place] [address] Demar Kerns MD [facility] DR [place] [address] Vision changes (Primary Dx); Posterior vitreous detachment, [...] EST September 11, 2011 Oral Colunga OD Disaster Response Director [facility] [address] [place] [address] RE: Van Alcantar#: [id number] Colunga, Thank you for asking [...] that given the long travel to the [facility]. At this point, I think we should simply take things one step at a time and he has agreed to return here next week. You should have no hesitation in contacting the eye MD clip on sunglasses inspector or myself for any symptoms, questions, or [...] degeneration documented in this encounter Care Teams Fuel Cell Technician Relationship Specialty Start Date End Date Steph Chapin MD [address] [place] [address] Dr [place] [address] PCP - General 07/31/10 documented as of this encounter
--- OUTSIDE RECORDS SUMMARY | 2024-03-30 09:22 | XMS_ITS | Encounter Summary ---
Author Organization [facility] [place] [address] Care Team Providers Care Upper Inspector Name Role Phone Steph Chapin MD Primary Care Provider [phone] Encounter Details Date Type Department Care Team (Late st Contact Info) Description 06/29/2009 [place] [phone] Fifi Salcido PA [address] [place] [address] Social History Tobacco Use Types Packs/Day Years Used Date Smoking Tobacco: Never Assessed Sex and Gender Information Value Date Recorded Sex Assigned at Not on file Gender Identity Not on file Sexual Orientation Not on file documented as of this encounter Plan of Treatment Not on file documented as of this encounter Procedures Procedure Name Priority Date/Time Associated Diagnosis Comments NON-AUDIOVISUAL TECH FINAL REPORT Routine 06/29/2009 2:47 PM EDT documented in this encounter Results * Non-Belt Builder Final Report (06/29/2009 2:47 PM EDT) Non-Belt Builder Final Report [id number] ? Location: 5B The signing pathologist has (i) examined the relevant preparation(s) for the specimen(s) and (ii) rendered or confirmed the diagnosis(es). . ? Pathology Non-Belt Builder Cytology Final Report Clinical Information Specimen Source: ?Urine, Catheter: straight cath. Clinical History/Impressio n: ?? Hematuria. Gross Description: ?? Received ??in 50% ETOH, ??approximately 60 ml. total volume of ?? cloudy, yellow fluid. ?? Total Preparation: Liquid Based Prep 1. Interpretation Specimen submitted is satisfactory. Diagnosis Negative for Malignancy 06/30/09 ?Screened by: ? SQA ?Rescreened by: ?? THOROUGHBRED HORSE FARM MANAGER 06/30/09 ?Verified by: ? Ellis AVELAR, Norma ? Pathologist ? (Electronic Signature) Comment Numerous degenerated white blood cells, rare urothelial cells and red blood cells are present. HEBER PEREZ 06/29/2009 2:47 PM EDT Fifi MACIAS PATHOLOGY/CYTOLOGY O RDERABLES HEBER PEREZ documented in this encounter Visit Diagnoses Not on filedocumented in this encounter Care Teams Upper Inspector Relationship Specialty Start Date End Date Steph Chapin MD [address] [place] [address] Dr [place] [address] PCP - General 07/31/10 07/31/10 documented as of this encounter
--- OUTSIDE RECORDS SUMMARY | 2024-03-30 09:22 | XMS_ITS | Encounter Summary ---
Author Organization [facility] [place] [address] Care Team Providers Care Seismic Engineer Name Role Phone Steph Chapin MD Primary Care Provider [phone] Reason for Visit * Reason Onset Date Comments Eye Problem 09/27/2011 Encounter Details Date Type Department Care Team (Late st Contact Info) Description 09/27/2011 Telephone [place] [phone] Myron Stiles MD [facility] [place] [address] Eye Problem Social History Tobacco Use Types [...] on filedocumented in this encounter Care Teams Seismic Engineer Relationship Specialty Start Date End Date Steph Chapin MD [address] [place] [address] [address] [place] [phone] PCP - General 07/31/10 documented as of this encounter
--- OUTSIDE RECORDS SUMMARY | 2024-03-30 09:22 | XMS_ITS | Encounter Summary ---
Author Organization [facility] [place] [address] Care Team Providers Care Riveter Pneumatic Name Role Phone Steph Chapin MD Primary Care Provider [phone] Encounter Details Date Type Department Care Team (Late st Contact Info) Description 01/09/2023 [place] [address] Lay Diana Social History Tobacco Use Types [...] on filedocumented in this encounter Care Teams Riveter Pneumatic Relationship Specialty Start Date End Date Steph Chapin MD [address] [place] [address] [place] [phone] PCP - General 07/31/10 documented as of this encounter
--- OUTSIDE RECORDS SUMMARY | 2024-03-30 09:22 | XMS_ITS | Encounter Summary ---
[place] [address] Care Team Providers Care Ear Nose Throat Physician Name Role Phone Steph Chapin MD Primary Care Provider [phone] Encounter Details Date Type Department Care Team (Late st Contact Info) Description 09/23/2003 [place] [phone] Alfa Dobbs MD UROLOGY Social History Tobacco [...] 10:17 AM EST) Surgical Pathology Report [id number] ? Location: The signing pathologist has (i) [...] stroma with focal atrophy. See ??Comment. 09/26/03 MANAGER ENVIRONMENTAL SERVICES 09/27/03 Verified by: ? Norma Corral MD [...] in block B-1 with focal prostatitis. [facility] 09/23/2003 10:1 7 AM EST Alfa Dobbs MD PATHOLOGY/CYTOLOGY O RDERABLES [facility] documented in this encounter Visit Diagnoses Not on filedocumented in this encounter Care Teams Ear Nose Throat Physician Relationship Specialty Start Date End Date Steph Chapin MD [address] [place] [address] [place] [address] PCP - General 07/31/10 07/31/10 documented as of this encounter
--- OUTSIDE RECORDS SUMMARY | 2024-03-30 09:22 | XMS_ITS | Encounter Summary ---
Author Organization [facility] [place] [address] Care Team Providers Care Skiving Machine Operator Name Role Phone Steph Chapin MD Primary Care Provider [phone] Encounter Details Date Type Department Care Team (Late st Contact Info) Description 09/24/2006 [place] [phone] Alfa Dobbs MD UROLOGY Social History Tobacco [...] Procedure Name Priority Date/Time Associated Diagnosis Comments NON-LEAD PROGRAMMER FINAL REPORT Routine 09/24/2006 2:49 PM EST documented in this encounter Results * Non-Header Boss Final Report (09/24/2006 2:49 PM EST) Non-Header Boss Final Report [id number] ? Location: The signing pathologist has (i) examined the relevant preparation(s) for the specimen(s) and (ii) rendered or confirmed the diagnosis(es). . ? Pathology Non-Header Boss Cytology Final Report Clinical Information Specimen Source: [...] on filedocumented in this encounter Care Teams Skiving Machine Operator Relationship Specialty Start Date End Date Steph Chapin MD [address] [place] [address] [place] [phone] PCP - General 07/31/10 07/31/10 documented as of this encounter
--- OUTSIDE RECORDS SUMMARY | 2024-03-30 09:22 | XMS_ITS | Encounter Summary ---
Author Organization [facility] [place] [address] Care Team Providers Care Binder Chainstitch Name Role Phone Steph Chapin MD Primary Care Provider [phone] Encounter Details Date Type Department Care Team (Late st Contact Info) Description 09/27/2011 Telephone [place] [phone] Myron Stiles MD [facility] [place] [address] Social History Tobacco Use Types Packs/Day Years [...] on filedocumented in this encounter Care Teams Binder Chainstitch Relationship Specialty Start Date End Date Steph Chapin MD [address] [place] [address] [address] [place] [phone] PCP - General 07/31/10 documented as of this encounter
--- OUTSIDE RECORDS SUMMARY | 2024-03-30 09:22 | XMS_ITS | Encounter Summary ---
[place] [address] Care Team Providers Care Rehab Consultant Name Role Phone Steph Chapin MD Primary Care Provider [phone] Encounter Details Date Type Department Care Team (Late st Contact Info) Description 10/07/2022 Ancillary Procedure [place] [phone] Steph Chapin MD [address] [place] [phone] Social History Tobacco Use Types Packs/Day Years [...] Ultrasound Study (10/07/2022 12:00 AM EST) Narrative [facility] - 11/27/2022 7:12 PM EDT This exam is auto-finalizing. It's purpose is for storage only. Steph Chapin MD G FILM LIBRARY ORD ERABLES Performing Organization Address City/State/[facility] Co de Phone Number DH [facility] [place], [place] documented in this encounter Visit Diagnoses Not on filedocumented in this encounter Care Teams Rehab Consultant Relationship Specialty Start Date End Date Steph Chapin MD [address] [place] [address] [address] [place] [phone] PCP - General 07/31/10 documented as of this encounter
--- OUTSIDE RECORDS SUMMARY | 2024-03-30 09:22 | XMS_ITS | Encounter Summary ---
Author Organization [facility] Address [facility] [place] [address] Care Team Providers Care Paleologist Name Role Phone Steph Chapin MD Primary Care Provider [phone] Reason for Visit * Reason Comments Post Op s/p laser to tear OD on 09/17/11,no flashes or floaters since here Encounter Details Date Type Department Care Team (Late st Contact Info) Description 09/23/2011 2:00 PM EST Follow-[place] [address] Demar Kerns MD [facility] [place] [address] Posterior vitreous detachment, right eye with vitreous [...] Eldridge. Mr. Coronel can be reached at [phone]. Respectfully, CC: Steph Chapin MD Family Medicine [address] [place] [address] Ender Eldridge MD Ophthalmology [address] [place] [address], [facility] [address] [place] [address] documented in this encounter Nursing Notes * [...] detachment documented in this encounter Care Teams Paleologist Relationship Specialty Start Date End Date Steph Chapin MD [address] [place] [address] [address] [place] [address] PCP - General 07/31/10 documented as of this encounter
--- OUTSIDE RECORDS SUMMARY | 2024-03-30 09:22 | XMS_ITS | Encounter Summary ---
[place] [address] Care Team Providers Care Graphics Production Specialist Name Role Phone Steph Chapin MD Primary Care Provider [phone] Encounter Details Date Type Department Care Team (Late st Contact Info) Description 10/31/2022 Ancillary Procedure [place] [phone] Steph Chapin MD [address] [place] [phone] Social History Tobacco Use Types Packs/Day Years [...] & Pelvis (10/31/2022 12:00 AM EST) Narrative [facility] - 11/27/2022 7:13 PM EDT This exam is auto-finalizing. It's purpose is for storage only. Steph Chapin MD IMG FILM LIBRARY ORD ERABLES DH [place], [place] documented in this encounter Visit Diagnoses Not on filedocumented in this encounter Care Teams Graphics Production Specialist Relationship Specialty Start Date End Date Steph Chapin MD [address] [place] [address] [place] [address] PCP - General 07/31/10 documented as of this encounter
--- OUTSIDE RECORDS SUMMARY | 2024-03-30 09:22 | XMS_ITS | Encounter Summary ---
Author Organization [facility] [place] [address] Care Team Providers Care Heel Attacher Wood Name Role Phone Steph Chapin MD Primary Care Provider [phone] Encounter Details Date Type Department Care Team (Late st Contact Info) Description 08/07/2009 [place] [address] Lino Young MD [facility] [place] [address] Social History Tobacco Use Types Packs/Day Years [...] 11:03 AM EST) Surgical Pathology Report [id number] ? Location: 3K The signing pathologist has [...] EST Lino Young MD PATHOLOGY/CYTOLOGY O RDERABLES [facility] documented in this encounter Visit Diagnoses Not on filedocumented in this encounter Care Teams Heel Attacher Wood Relationship Specialty Start Date End Date Steph Chapin MD [address] [place] [address] Dr [place] [address] PCP - General 07/31/10 07/31/10 documented as of this encounter
--- OUTSIDE RECORDS SUMMARY | 2024-03-30 09:22 | XMS_ITS | Encounter Summary ---
Author Organization [facility] [place] [address] Care Team Providers Care Staff Software Engineer Name Role Phone Steph Chapin MD Primary Care Provider [phone] Encounter Details Date Type Department Care Team (Late st Contact Info) Description 06/28/2008 Orders [place] [address] Lino Lainez MD [facility] [place] [address] Social History Tobacco Use Types Packs/Day Years Used Date Smoking Tobacco: Never Assessed Sex and Gender Information Value Date Recorded Sex Assigned at Not on file Gender Identity Not on file Sexual Orientation Not on file documented as of this encounter Plan of Treatment Not on file documented as of this encounter Procedures Procedure Name Priority Date/Time Associated Diagnosis Comments NON-FELTMAKER FINAL REPORT Routine 06/28/2008 3:51 PM EDT documented in this encounter Results * Non-Flight Steward Final Report (06/28/2008 3:51 PM EDT) Non-Flight Steward Final Report [id number] ? Location: 5B The signing pathologist has (i) examined the relevant preparation(s) for the specimen(s) and (ii) rendered or confirmed the diagnosis(es). . ? Pathology Non-Flight Steward Cytology Final Report Clinical Information Specimen Source: [...] MD PATHOLOGY/CYTOLOGY O RDERABLES Performing Organization Address City/State/[facility] Co de Phone Number HEBER PEREZ documented in this encounter Visit Diagnoses Not on filedocumented in this encounter Care Teams Staff Software Engineer Relationship Specialty Start Date End Date Steph Chapin MD [address] [place] [address] [address] [place] [address] PCP - General 07/31/10 07/31/10 documented as of this encounter
--- OUTSIDE RECORDS SUMMARY | 2024-03-30 09:22 | XMS_ITS | Encounter Summary ---
Author Organization [facility] [place] [address] Care Team Providers Care Leather Scrubber Name Role Phone Steph Chapin MD Primary Care Provider [phone] Reason for Visit * Reason Comments Spots and/or Floaters floaters OD Encounter Details Date Type Department Care Team (Late st Contact Info) Description 09/30/2011 9:00 AM EST Office [place] [address] Chelsey Dave MD [facility] DR [place]THAL[place] [address] Retinal defect, right (Primary Dx) Discharge Disposition: [...] unspecified documented in this encounter Care Teams Leather Scrubber Relationship Specialty Start Date End Date Steph Chapin MD [address] [place] [address] [address] [place] [address] PCP - General 07/31/10 documented as of this encounter
--- OUTSIDE RECORDS SUMMARY | 2024-03-30 09:22 | XMS_ITS | Encounter Summary ---
Author Organization [facility] [place] [address] Care Team Providers Care Hand Sign Writer Name Role Phone Steph Chapin MD Primary Care Provider [phone] Encounter Details Date Type Department Care Team (Late st Contact Info) Description 04/02/2004 [place] [phone] Alfa Dobbs MD UROLOGY Social History Tobacco [...] Procedure Name Priority Date/Time Associated Diagnosis Comments NON-JOB ANALYST FINAL REPORT Routine 04/02/2004 1:11 PM EDT documented in this encounter Results * Non-Electronic Funds Transfer Coordinator Final Report (04/02/2004 1:11 PM EDT) Non-Electronic Funds Transfer Coordinator Final Report [id number] ? Location: The signing pathologist has (i) examined the relevant preparation(s) for the specimen(s) and (ii) rendered or confirmed the diagnosis(es). . ? Pathology Non-Electronic Funds Transfer Coordinator Cytology Final Report Clinical Information Specimen Source: [...] on filedocumented in this encounter Care Teams Hand Sign Writer Relationship Specialty Start Date End Date Steph Chapin MD [address] [place] [address] [place] [address] PCP - General 07/31/10 07/31/10 documented as of this encounter
--- OUTSIDE RECORDS SUMMARY | 2024-03-30 09:22 | XMS_ITS | Encounter Summary ---
Author Organization [facility] [place] [address] Care Team Providers Care Blueprint Maker Name Role Phone Steph Chapin MD Primary Care Provider [phone] Reason for Visit * Reason Onset Date Comments Eye Problem 09/10/2011 right vitreous h emmorage right eye( happened on 09/06/11) Encounter Details Date Type Department Care Team (Late st Contact Info) Description 09/10/2011 [place] [address] Demar Kerns MD [facility] [place] [address] Eye Problem (right vitreous hemmorage right eye( [...] jackson when the appt is booked At [phone] ask for didi or leno documented in this encounter Plan of Treatment Not on file documented as of this encounter Visit Diagnoses Not on filedocumented in this encounter Care Teams Blueprint Maker Relationship Specialty Start Date End Date Steph Chapin MD [address] [place] [address] [address] [place] [address] PCP - General 07/31/10 documented as of this encounter
--- OUTSIDE RECORDS SUMMARY | 2024-03-30 09:22 | XMS_ITS | Encounter Summary ---
[place] [address] Care Team Providers Care Senior Attorney Name Role Phone Steph Chapin MD Primary Care Provider [phone] Encounter Details Date Type Department Care Team (Late st Contact Info) Description 06/28/2019 Ancillary Procedure [place] [phone] Steph Chapin MD [address] [place] [phone] Social History Tobacco Use Types Packs/Day Years [...] MR Pelvis (06/28/2019 12:00 AM EDT) Narrative [facility] - 11/27/2022 7:12 PM EDT This exam is auto-finalizing. It's purpose is for storage only. Steph Chapin MD G FILM LIBRARY ORD ERABLES DH [place], [place] documented in this encounter Visit Diagnoses Not on filedocumented in this encounter Care Teams Senior Attorney Relationship Specialty Start Date End Date Steph Chapin MD [address] [place] [address] [address] [place], [place] [phone] PCP - General 07/31/10 documented as of this encounter
--- OUTSIDE RECORDS SUMMARY | 2024-03-30 09:22 | XMS_ITS | Encounter Summary ---
Author Organization [facility] [place] [address] Care Team Providers Care Dental Technician Name Role Phone Steph Chapin MD Primary Care Provider [phone] Reason for Visit * Reason Comments Eye Problem 6 day chk, s/p PVS c vit heme OD, my eye is good, Encounter Details Date Type Department Care Team (Late st Contact Info) Description 09/17/2011 1:15 PM EST [place] [address] Demar Kerns MD [facility] [place] [address] Posterior vitreous detachment, right eye with vitreous [...] degeneration documented in this encounter Care Teams Dental Technician Relationship Specialty Start Date End Date Steph Chapin MD [address] [place] [address] [address] [place], [place] [phone] PCP - General 07/31/10 documented as of this encounter
[2024-03-30 20:50] LABS: Bilirubin Large (Negative); Blood Large (Negative); Clarity Cloudy (Clear); Glucose Negative (Negative); Ketones Trace mg/dL (Negative); Leukocyte Esterase Large (Negative); Nitrite Negative (Negative); pH 5.5 (5-8)
[2024-03-30 20:52] LABS: Bacteria Many HPF (Negative); C & S Indicated? C&S Done As Ordered; Casts Negative LPF (Negative); Crystals Negative HPF (Negative); Epithelial Cells Rare HPF (Negative); Mucus Trace (Negative); Other Cells Few Yeast (Negative); RBC >50 HPF (0-2); WBC 20-50 HPF (0-5)
[2024-03-30 21:13] LABS: Anion Gap 9.7 mmol/L (3-11); BUN 25 mg/dL (7-18); CO2 27.3 mmol/L (21.0-32.0); CREATININE 1.8 mg/dL (0.70-1.30); Calcium 9.4 mg/dL (8.5-10.1); Chloride 104 mmol/L (98-107); Estimated GFR 37.82 (mL/min/1.73m2); Glucose 103 mg/dL (74-106); Potassium 4.1 mmol/L (3.5-5.1); Sodium 141 mmol/L (136-145)
[2024-04-01 13:04] LABS: Albumin 54.6 % (55.8-66.1); Albumin g/dL 3.6 g/dL (3.6-5.2); Total Protein 6.6 g/dL (6.3-8.2)
[2024-04-01 14:59] LABS: Albumin, Urine % 15.8 %; Albumin, Urine mg/dL 102 mg/dL; Globulins, Urine % 84.2 %; Globulins, Urine mg/dL 546 mg/dL; Immunotyping, Urine (See Note); Total Protein Urine 648 mg/dL (See Note)
== END 2024-03-30 09:20 | disposition home or self-care (01) ==
LOC: NCHCN 09:19
PROVIDERS: PCP Physician Assistant; Visit Provider Physician Assistant
DX: N18.9 Chronic kidney disease, unspecified (principal); R79.89 Other specified abnormal findings of blood chemistry; R82.998 Other abnormal findings in urine
CPT/HCPCS: 80048; 84156; 84166; 86335; 87077; 81003; 81015; 84165; 87086; 87186

== ENCOUNTER 2024-09-30 10:30 | Outpatient (REF) | payer MEDICARE, SELFPAY ==
--- OUTSIDE RECORDS SUMMARY | 2024-09-30 10:46 | XMS_ITS | Encounter Summary ---
Author Organization [facility] Address [address] [place] [address] Care Team Providers Care Primer Inserting Machine Adjuster Name Role Phone Maria R Falk MD Primary Care Provider Unavailable Reason for Visit * Reason Comments New Patient Visit Gross Hematuria, Pat ient self caths * Consult (Routine) - Closed Specialty Diagnoses / Procedures [facility] To Contact Urology Diagnoses BPH (benign prostatic hyperplasia) Bladder outlet obstruction Hematuria Maria R Falk MD [address] [address] Phone: tel: fax: Referral ID Status Reason Start Date Expiration Date Visits Re quested Visits Authorized [id number] Closed 1 1 Encounter Details Date Type Department Care Team (Late st Contact Info) Description 09/10/2016 11:30 EST Office Visit [address] [address] You Webster MD [address] [place] [address] Hematuria, gross (Primary Dx); Retention of urine; Elevated PSA Social History Tobacco Use Types Packs/Day Years Used Date Smoking Tobacco: Former Sex and Gender Information Value Date Recorded Sex Assigned at Not on file Legal Sex Male 18:28 EST Gender Identity Male 08/22/2020 19:10 EST Sexual Orientation Not on file documented as of this encounter Functional Status * Because of a physical, mental, or emotional condition, does this person have difficulty doing errands alone such as visiting a doctor's office or shopping? Answer Date of Assessment Author No 09/10/2016 11:21 EST documented as of this encounter Mental Status * Because of a physical, mental, or emotional condition, does this person have serious difficulty concentrating, remembering, or making decisions? Answer Entry Date Author No 09/10/2016 11:21 EST documented in this encounter Ordered Prescriptions Prescription Sig Dispense Quantity Refills Last Filled Start Date End Date finasteride (PROSCAR) 5 mg tablet Take 1 [...] would like to avoid another visit into [place] and we will have him follow up [...] (09/10/2016 11:28 EST) Color YELLOW 09/10/2016 11:35 [facility] Clarity, UA Clear 09/10/2016 11:35 [facility] Glucose Neg Neg 09/10/2016 11:35 [facility] Bilirubin Neg Neg 09/10/2016 11:35 [facility] Ketones Neg Neg 09/10/2016 11:35 [facility] Specific [place]lman 1.025 1.001 - 1.035 09/10/2016 11:35 [facility] Blood Trace(A) Neg 09/10/2016 11:35 [facility] pH 6.0 4.6 - 8.0 09/10/2016 11:35 [facility] Protein 2+(A) Neg 09/10/2016 11:35 [facility] Urobilinogen 0.2 0.2 - 1.0 E.U./dl 09/10/2016 11:35 [facility] Nitrite Neg Neg 09/10/2016 11:35 [facility] Leuk Esterase Neg Neg 09/10/2016 11:35 [facility] machine farmworker ID [id number] 09/10/2016 11:35 [facility] Comment:Test performed at [facility] Urine specimen (specimen) URINE / Unknown 09/10/2016 11:28 EST 09/10/2016 11:35 EST us You Webster MD POINT OF CARE TEST ORDERABL ES Final Result [facility] [address] [place] [address] documented in this encounter Visit Diagnoses Diagnosis Hematuria, gross- Primary Gross hematuria Retention of urine Retention of urine, unspecified Elevated PSA Elevated prostate specific antigen (PSA) documented in this encounter Historical Medications * This list may reflect changes made after this encounter. FERROUS SULFATE, DRIED (IRON, DRIED, ORAL) Take by mouth. LOSARTAN POTASSIUM (LOSARTAN ORAL) Take by mouth. PAROXETINE HCL (PAXIL ORAL) Take 10 mg by mouth. added in this encounter Care Teams Primer Inserting Machine Adjuster Relationship Specialty Start Date End Date Maria R Falk MD PCP - General 09/04/16 08/17/19 documented as of this encounter
--- OUTSIDE RECORDS SUMMARY | 2024-09-30 10:46 | XMS_ITS | Encounter Summary ---
Author Organization [facility] Address [address] [place] [address] Care Team Providers Care Acoustical Engineer Name Role Phone OusmanewojciechDennise brown FERMENTATION OPERATOR Primary Care Provider [phone] Reason for Referral * Radiology Services (Routine) - Closed Specialty Diagnoses / Procedures Referred By Zion wright Referred To Contact Radiology Diagnoses Elevated PSA Benign prostatic hyperplasia with nocturia Procedures MR PROSTATE W WO CONTRAST Cristi Carrera MD Phone: tel: fax: Referral ID Status Reason Start Date Expiration Date Visits Re quested Visits Authorized [id number] Closed 08/13/2020 02/09/2021 1 1 Reason for Visit * Radiology Services (Routine) - Closed Specialty Diagnoses / Procedures Referred By iZon wright Referred To Contact Radiology Diagnoses Elevated PSA Benign prostatic hyperplasia with nocturia Procedures MR PROSTATE W WO Cristi Cottrell MD Phone: tel: fax: Referral ID Status Reason Start Date Expiration Date Visits Re quested Visits Authorized [id number] Closed 08/13/2020 02/09/2021 1 1 Encounter Details Date Type Department Care Team (Latest Contact Info) Description 09/02/2020 11:43 EST - 09/02/2020 23:59 EST Hospital Encounter [facility] Radiology MRI - [facility] [place] [address] [place], [place] [address] Elevated PSA; Benign prostatic hyperplasia with nocturia [...] 09/10/2016 11:21 EST documented in this encounter Medications at Time of Discharge calcium carbonate-mag hydroxid 1,000-200 mg tablet,chewable Take [...] 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 us Cristi Carrera MD IMG MRI ORDERABLES Final Result documented in this encounter Visit Diagnoses Diagnosis [...] 09/02/2020 documented in this encounter Care Teams Acoustical Engineer Relationship Specialty Start Date End Date Dennise Dewitt NP PCP - General 08/22/20 documented as of this encounter
--- OUTSIDE RECORDS SUMMARY | 2024-09-30 10:46 | XMS_ITS | Encounter Summary ---
[place] [address] Care Team Providers Care Computer Support Analyst Name Role Phone Steph Chapin MD Primary Care Provider [phone] Reason for Visit * Consultation (Routine) - Closed Specialty Diagnoses / Procedures Referred By Zion wright Referred To Contact Urology Diagnoses Urinary retention BPH with obstruction/lower urinary tract symptoms Hydronephrosis Procedures Consult and treat Demar Braswell MD [address] [place] [address] [facility] [place] [address] Referral ID Status Reason Start Date Expiration Date Visits Re quested Visits Authorized [id number] Closed 01/09/2023 01/09/2024 1 1 Encounter Details Date Type Department Care Team (Latest Contact Info) Description 02/10/2023 10:40 AM EDT TH Visit (TeleHealth) [place] [address] Stephan Guerrero MD [facility] [place] [address] Benign prostatic hyperplasia, unspecified whether [...] present documented in this encounter Care Teams Computer Support Analyst Relationship Specialty Start Date End Date Steph Chapin MD [address] [place] [address] [address] [place] [phone] PCP - General 07/31/10 documented as of this encounter
--- OUTSIDE RECORDS SUMMARY | 2024-09-30 10:46 | XMS_ITS | Encounter Summary ---
Author Organization [facility] Address [address] [place] [address] Care Team Providers Care Inventory Associate And Driver Name Role Phone Maria R Falk MD Primary Care Provider Unavailable Encounter Details Date Type Department Care Team (Late st Contact Info) Description 06/29/2019 Results Only Imaging [facility] [phone] Unknown, Provider, Social History Tobacco Use Types [...] 09/10/2016 11:21 EST documented in this encounter Plan of Treatment Pending Results Name Type Priority Associated Diagnoses Date /Time OUTSIDE IMAGES - MR MSK Imaging 1 9:53 EDT documented as of this encounter Visit Diagnoses Not on filedocumented in this encounter Care Teams Inventory Associate And Driver Relationship Specialty Start Date End Date Maria R Falk MD PCP - General 09/04/16 08/17/19 documented as of this encounter
--- OUTSIDE RECORDS SUMMARY | 2024-09-30 10:46 | XMS_ITS | Encounter Summary ---
Author Organization [facility] Address [address] [place] [address] Care Team Providers Care Senior Category Manager Name Role Phone Maria R Falk MD Primary Care Provider Unavailable Ramses Porter MD Primary Care Provider [phone] Reason for Visit * Reason Onset Date Comments Appointment Related 06/29/2019 Appointment Related 07/01/2019 Appointment Related 07/26/2019 canceled , call to reschedule Encounter Details Date Type Department Care Team (Late st Contact Info) Description 06/29/2019 Telephone [facility] [address] [place], [place] [phone] You Webster MD [address] [place] [address] Appointment Related; Appointment Related; Appointment Related (canceled [...] 09/10/2016 11:21 EST documented in this encounter Miscellaneous Notes * Telephone Encounter [...] filedocumented in this encounter Care Teams Senior Category Manager Relationship Specialty Start Date End Date Maria R Falk MD PCP - General 09/04/16 08/17/19 Ramses Porter MD [address] [place] [address] PCP - General 08/18/19 08/21/20 documented as of this encounter
--- OUTSIDE RECORDS SUMMARY | 2024-09-30 10:46 | XMS_ITS | Encounter Summary ---
Author Organization [facility] [place] [address] Care Team Providers Care Parts Remover Name Role Phone Steph Chapin MD Primary Care Provider [phone] Encounter Details Date Type Department Care Team (Late st Contact Info) Description 10/07/2022 Ancillary Procedure Radiology Library at [facility] [place] [phone] Steph Chapin MD [address] [place] [address] [place] [phone] Social History Tobacco Use Types Packs/Day Years [...] Ultrasound Study (10/07/2022 12:00 AM EST) Narrative [facility] - 11/27/2022 7:12 PM EDT This exam is auto-finalizing. It's purpose is for storage only. Steph Chapin MD G FILM LIBRARY ORD ERABLES [place], [place] documented in this encounter Visit Diagnoses Not on filedocumented in this encounter Care Teams Parts Remover Relationship Specialty Start Date End Date Steph Chapin MD [address] [place] [address] [address] [place] [address] PCP - General 07/31/10 documented as of this encounter
--- OUTSIDE RECORDS SUMMARY | 2024-09-30 10:46 | XMS_ITS | Encounter Summary ---
[place] [address] Care Team Providers Care Swatch Maker Name Role Phone Steph Chapin MD Primary Care Provider [phone] Encounter Details Date Type Department Care Team [...] on filedocumented in this encounter Care Teams Swatch Maker Relationship Specialty Start Date End Date Steph Chapin MD [address] [place] [address] [place] [phone] PCP - General 07/31/10 documented as of this encounter
--- OUTSIDE RECORDS SUMMARY | 2024-09-30 10:46 | XMS_ITS | Encounter Summary ---
Author Organization [facility] Address [address] [place] [address] Care Team Providers Care Special Educator Name Role Phone Ousmanejade Dennise Chelo PULP MAKING PLANT OPERATOR Primary Care Provider [phone] Reason for Visit * Reason Comments Follow-up MRI Encounter Details Date Type Department Care Team (Late st Contact Info) Description 09/11/2020 10:15 EST Telemedicine [facility] Urology - [facility] [address] [place], [place] [phone] Cristi Carrera MD [address] [facility], [address] [place] [address] Retention, urine (Primary Dx) Social [...] 09/10/2016 11:21 EST documented in this encounter Progress Notes * Cristi Carrera MD - 09/11/2020 1015 EST Dennise Dewitt CC: BPH / retention [place] patient Last [...] updated in PRISM M / no kids 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
--- OUTSIDE RECORDS SUMMARY | 2024-09-30 10:46 | XMS_ITS | Encounter Summary ---
[place] [address] Care Team Providers Care Post Doctoral Fellow Name Role Phone Steph Chapin MD Primary Care Provider [phone] Reason for Referral * Diagnostic Test (Routine) - Closed Specialty Diagnoses / Procedures Referred By Zion wright Referred To Contact Radiology Diagnoses Hydronephrosis, unspecified hydronephrosis type Hematuria, unspecified type Procedures CT Urogram Stephan Guerrero MD [facility] [place] [address] [facility] [place] [address] Referral ID Status Reason Start Date Expiration Date V isits Requested Visits Authorized [id number] Closed Specialty Service Requested 01/13/2023 07/16/2024 1 1 Reason for Visit * Diagnostic Test (Routine) - Closed Specialty Diagnoses / Procedures Referred By Zion wright Referred To Contact Radiology Diagnoses Hydronephrosis, unspecified hydronephrosis type Hematuria, unspecified type Procedures CT Urogram Stephan Guerrero MD [facility] [place] [address] [facility] [place] [address] Referral ID Status Reason Start Date Expiration Date V isits Requested Visits Authorized [id number] Closed Specialty Service Requested 01/13/2023 07/16/2024 1 1 Encounter Details Date Type Department Care Team (Latest Contact Info) Description 01/30/2023 1:46 PM EDT - 01/30/2023 11:59 PM EDT Hospital [place] [address] Stephan Guerrero MD [facility] [place] [address] Hydronephrosis, unspecified hydronephrosis type; Hematuria, unspecified type [...] Sig Dispensed Refills Start Date End Date multivitamin (THERAGRAN) tablet 08/07/2009 PARoxetine (PAXIL) 10 mg tablet 08/07/2009 FLURAZEPAM HCL (FLURAZEPAM ORAL) Take [...] who have questions please contact the health coronary care unit nurse that requested your imaging first. ? Electronically signed by: Maxim Dobbins MD, [facility] ([phone]), at 01/31/2023 9:45 AM Narrative 01/31/2023 9:45 [...] patients who have questions please contactthe health coronary care unit nurse that requested your imaging first. Stephan Guerrero [...] mLs documented in this encounter Care Teams Post Doctoral Fellow Relationship Specialty Start Date End Date Steph Chapin MD [address] [place] [address] [place] [phone] PCP - General 07/31/10 documented as of this encounter
--- OUTSIDE RECORDS SUMMARY | 2024-09-30 10:46 | XMS_ITS | Encounter Summary ---
[place] [address] Care Team Providers Care Data Analyst Report Writer Name Role Phone Steph Chapin MD Primary Care Provider [phone] Encounter Details Date Type Department Care Team (Late st Contact Info) Description 01/09/2023 Telephone [place] [phone] Lay Diana Social History Tobacco Use Types [...] on filedocumented in this encounter Care Teams Data Analyst Report Writer Relationship Specialty Start Date End Date Steph Chapin MD [address] [place] [address] [place] [phone] PCP - General 07/31/10 documented as of this encounter
--- OUTSIDE RECORDS SUMMARY | 2024-09-30 10:46 | XMS_ITS | Encounter Summary ---
Author Organization [facility] [place] [address] Care Team Providers Care Watcher Lookout Tower Name Role Phone Steph Chapin MD Primary Care Provider [phone] Reason for Visit * Reason Comments Eye Problem 6 day chk, s/p PVS c vit heme OD, my eye is good, Encounter Details Date Type Department Care Team (Late st Contact Info) Description 09/17/2011 1:15 PM EST Follow-Up [place] [address] Demar Kerns MD [facility] [place] [address] Posterior vitreous detachment, right eye with vitreous [...] degeneration documented in this encounter Care Teams Watcher Lookout Tower Relationship Specialty Start Date End Date Steph Chapin MD [address] [place] [address] [address] [place] [address] PCP - General 07/31/10 documented as of this encounter
--- OUTSIDE RECORDS SUMMARY | 2024-09-30 10:46 | XMS_ITS | Encounter Summary ---
Author Organization [facility] [place] [address] Care Team Providers Care Grounds Crew Supervisor Name Role Phone Steph Chapin MD Primary Care Provider [phone] Reason for Visit * Reason Comments Procedure Focal OD Encounter Details Date Type Department Care Team (Late st Contact Info) Description 09/17/2011 1:20 PM EST Procedure [place] [address] Demar Kerns MD [facility] [place] [address] Posterior vitreous detachment, right eye with vitreous [...] Modality Other Demar Kerns MD OPHTHALMOLOGY S [facility] ORDERABLES documented in this encounter Visit Diagnoses Diagnosis Posterior vitreous detachment, right eye with vitreous hemorrhage. Follow closely.- Primary Vitreous degeneration documented in this encounter Care Teams Grounds Crew Supervisor Relationship Specialty Start Date End Date Steph Chapin MD [address] [place] [address] [address] [place] [phone] PCP - General 07/31/10 documented as of this encounter
--- OUTSIDE RECORDS SUMMARY | 2024-09-30 10:46 | XMS_ITS | Encounter Summary ---
Author Organization [facility] Address [address] [place] [address] Care Team Providers Care Security System Installer Name Role Phone Ramses Porter MD Primary Care Provider [phone] Reason for Visit * Reason Onset Date Comments Appointment Related 06/02/2020 Encounter Details Date Type Department Care Team (Late st Contact Info) Description 06/02/2020 Telephone [facility] Urology - [address] [phone] Cristi Carrera MD [address] [facility], [address] [place] [address] Appointment Related Social History Tobacco [...] encounter Miscellaneous Notes * Telephone Encounter - Place, [place] - 06/02/2020 1625 EDT Patient called back [...] on filedocumented in this encounter Care Teams Security System Installer Relationship Specialty Start Date End Date Ramses Porter MD [address] [place] [address] PCP - General 08/18/19 08/21/20 documented as of this encounter
--- OUTSIDE RECORDS SUMMARY | 2024-09-30 10:46 | XMS_ITS | Encounter Summary ---
[place] [address] Care Team Providers Care Rehab Tech Name Role Phone Steph Chapin MD Primary Care Provider [phone] Encounter Details Date Type Department Care Team [...] filedocumented in this encounter Care Teams Rehab Tech Relationship Specialty Start Date End Date Steph Chapin MD [address] [place] [address] [place] [phone] PCP - General 07/31/10 documented as of this encounter
--- OUTSIDE RECORDS SUMMARY | 2024-09-30 10:46 | XMS_ITS | Encounter Summary ---
Author Organization [facility] Address [address] [place] [address] Care Team Providers Care Trucksmith Name Role Phone Ramses Porter MD Primary Care Provider [phone] Reason for Visit * Reason Comments Follow-up Poss Cysto Encounter Details Date Type Department Care Team (Late st Contact Info) Description 09/03/2019 11:15 EST Office Visit [facility] Urology - [facility] [address] [place], [place] [address] You Webster MD [address] [place] [address] Retention, urine (Primary Dx) Social History Tobacco [...] Progress Notes * You Webster - 09/03/2019 1112 EST This is a 74-year-old gentleman with [...] catheters. He has been using a 12- Maori coude tipped catheter and this has been improving his ability to empty. He has been doing this 4 times a day. We will reorder these for him as at this point, he does not wish to have surgical intervention. I will see him on a yearly basis to check in. He will call for any concerns prior. * Mali Rios RN - 09/03/2019 1111 EST Patient is self catheterizing 4 times daily with 12 Fr coude coloplast. and is [facility]. Pt is requesting 1 catheter for the [...] Note - Mali Rios RN - 09/03/2019 1117 ESTAddended by: MALI RIOS on: 09/03/2019 13:16 Modules accepted: Orders documented in this encounter Plan of Treatment Not on file documented as of this encounter Visit Diagnoses Diagnosis Retention, urine- Primary Retention of urine, unspecified documented in this encounter Orders Equipment Count Last Ordered Date First Orde red Date GENERIC DME ORDER 2 09/03/2019 documented in this encounter Care Teams Trucksmith Relationship Specialty Start Date End Date Ramses Porter MD [address] [place] [address] PCP - General 08/18/19 08/21/20 documented as of this encounter
--- OUTSIDE RECORDS SUMMARY | 2024-09-30 10:46 | XMS_ITS | Encounter Summary ---
Author Organization [facility] Address [address] [place] [address] Care Team Providers Care Wool Handler Name Role Phone Unavailable Primary Care Provider Unavailabl e Encounter Details Date Type Department Care Team (Late st Contact Info) Description 02/03/2004 Results Only [facility] - [facility] conversion [address] [place] [address] Nely Aguilar CRNA Social History Tobacco Use [...] when reading/interpreti ng unformatted reports. Name: ? KATHERINE CHRISTIANO ? Accession #: ? [id number] : ? 1945 (Age: 58) ??M ?Collect [...] [facility] 02/03/2004 02/05/2004 11: 53 EDT us Nely Aguilar PUBLIC RELATIONS SPECIALIST PATHOLOGY ORDERABLES Final R esult [facility] [address] [place] [address] documented in this encounter Visit Diagnoses Not on filedocumented in this encounter
--- OUTSIDE RECORDS SUMMARY | 2024-09-30 10:46 | XMS_ITS | Encounter Summary ---
Author Organization [facility] Address [address] [place] [address] Care Team Providers Care Loom Overhauler Name Role Phone Dennise Dewitt IRRIGATION EQUIPMENT MECHANIC Primary Care Provider [phone] Encounter Details Date Type Department Care Team [...] on filedocumented in this encounter Care Teams Loom Overhauler Relationship Specialty Start Date End Date Dennise Dewitt NP PCP - General 08/22/20 documented as of this encounter
--- OUTSIDE RECORDS SUMMARY | 2024-09-30 10:46 | XMS_ITS | Encounter Summary ---
Author Organization [facility] Address [address] [place] [address] Care Team Providers Care Newspaper Photo Editor Name Role Phone Ousmanewojciechstephanie Dennise Whitney NEUROLOGY TEACHER Primary Care Provider [phone] Encounter Details Date Type Department Care Team (Late st Contact Info) Description 03/31/2024 Lab Requisition [facility] Pathology & Laboratory Medicine - [facility] [address] [place] [address] Outr Resulting Lab, Provider Social History Tobacco [...] Procedure Name Priority Date/Time Associated Diagnosis Comments SPEP, INCLUDES QUANTITATION OF MONOCLONAL SPIKE PERFORMABLE Today 03/30/2024 8:40 EDT SPEP, INCLUDES QUANTITATION OF MONOCLONAL SPIKE Routine 03/30/2024 8:40 EDT PROTEIN, TOTAL Today 03/30/2024 8:40 EDT documented in this encounter Results * (ABNORMAL) SPEP, INCLUDES QUANTITATION OF MONOCLONAL SPIKE PERFORMABLE (03/30/2024 8:40 EDT) Albumin % 54.6(L) 55.8 - 66.1 % 04/01/2024 13:00 [facility] Albumin g/dL 3.6 3.6 - 5.2 g/dL 04/01/2024 13:00 [facility] Alpha-1 % 6.2(H) 2.9 - 4.9 % 04/01/2024 13:00 [facility] Alpha-1 g/dL 0.40 0.15 - 0.40 g/dL 04/01/2024 13:00 [facility] Alpha-2 % 15.1(H) 7.1 - 11.8 % 04/01/2024 13:00 [facility] Alpha-2 g/dL 1.00 0.50 - 1.00 g/dL 04/01/2024 13:00 [facility] Beta % 11.0 8.4 - 13.1 % 04/01/2024 13:00 [facility] Beta g/dL 0.70 0.60 - 1.20 g/dL 04/01/2024 13:00 [facility] Gamma % 13.1 11.1 - 18.8 % 04/01/2024 13:00 [facility] Gamma g/dL 0.90 0.60 - 1.60 g/dL 04/01/2024 13:00 [facility] SPEP Comment No apparent monoclonal protein seen on serum electrophoresis 04/01/2024 13:00 [facility] Comment:See scanned/suppleme ntary report. Total Protein 6.6 6.3 - 8.2 g/dL 04/01/2024 13:00 [facility] Blood VENOUS BLOOD / Unknown 03/30/2024 8:40 EDT 03/31/2024 17:26 EDT us Provider Outr Resulting Lab CHEMISTRY & BLOOD GA S ORDERABLES Final Result Performing Organization Address [facility] Co de Phone Number [facility] [address] [place] [address] * PROTEIN, TOTAL (03/30/2024 8:40 EDT) Blood VENOUS BLOOD / Unknown 03/30/2024 8:40 EDT 03/31/2024 17:26 EDT us Provider Outr Resulting Lab CHEMISTRY & BLOOD GA S ORDERABLES Final Result Performing Organization Address [facility] Co de Phone Number [facility] [address] [place] [address] documented in this encounter Visit Diagnoses Not on filedocumented in this encounter Care Teams Newspaper Photo Editor Relationship Specialty Start Date End Date Dennise Dewitt NP PCP - General 08/22/20 documented as of this encounter
--- OUTSIDE RECORDS SUMMARY | 2024-09-30 10:46 | XMS_ITS | Encounter Summary ---
Author Organization [facility] [place] [address] Care Team Providers Care Scrap Drop Crane Operator Name Role Phone Steph Chapin MD Primary Care Provider [phone] Reason for Visit * Reason Comments Eye Problem saw Oral Vaca, (09/06/11). Pt reports 2 weeks floater OD, changed into haze like looking through a scrim. haze like wax paper. Encounter Details Date Type Department Care Team (Late st Contact Info) Description 09/11/2011 9:15 AM EST [place] [address] Demar Kerns MD [facility] [place] [address] Vision changes (Primary Dx); Posterior vitreous detachment, [...] EST September 11, 2011 Oral Colunga OD Acid Plant Helper [facility] [address] [place] [address] RE: Van Alcantar#: [id number] Colunga, Thank you for asking [...] that given the long travel to the [facility]. At this point, I think we should simply take things one step at a time and he has agreed to return here next week. You should have no hesitation in contacting the eye MD compensation consulting manager or myself for any symptoms, questions, or [...] degeneration documented in this encounter Care Teams Scrap Drop Crane Operator Relationship Specialty Start Date End Date Steph Chapin MD [address] [place] [address] [address] [place] [phone] PCP - General 07/31/10 documented as of this encounter
--- OUTSIDE RECORDS SUMMARY | 2024-09-30 10:46 | XMS_ITS | Encounter Summary ---
Author Organization [facility] Address [address] [place] [address] Care Team Providers Care On Site Nurse Name Role Phone Ramses Porter MD Primary Care Provider [phone] Reason for Visit * Reason Comments Cystoscopy Encounter Details Date Type Department Care Team (Latest Contact Info) Description 09/03/2019 11:00 EST Procedure visit [facility] Urology - [facility] [address] [place] [address] Scope, Cystoscopy Retention, urine (Primary Dx) Social [...] documented in this encounter Progress Notes * Malgorzata Mon RN - 09/03/2019 1100 EST See physician encounter documented in this encounter Plan of Treatment Not on file documented as of this encounter Visit Diagnoses Diagnosis Retention, urine- Primary Retention of urine, unspecified documented in this encounter Care Teams On Site Nurse Relationship Specialty Start Date End Date Ramses Porter MD [address] [place] [address] PCP - General 08/18/19 08/21/20 documented as of this encounter
--- OUTSIDE RECORDS SUMMARY | 2024-09-30 10:46 | XMS_ITS | Encounter Summary ---
Author Organization [facility] [place] [address] Care Team Providers Care Betting Agency Counter Clerk Name Role Phone Steph Chapin MD Primary Care Provider [phone] Encounter Details Date Type Department Care Team (Late st Contact Info) Description 06/28/2019 Ancillary Procedure Radiology Library at [facility] [place] [address] Steph Chapin MD [address] [place] [address] [place] [phone] Social History Tobacco Use Types Packs/Day Years [...] MR Pelvis (06/28/2019 12:00 AM EDT) Narrative RUDOLPH DOYLE - 11/27/2022 7:12 PM EDT This exam is auto-finalizing. It's purpose is for storage only. Steph Chapin MD G FILM LIBRARY ORD ERABLES [place], [place] documented in this encounter Visit Diagnoses Not on filedocumented in this encounter Care Teams Betting Agency Counter Clerk Relationship Specialty Start Date End Date Steph Chapin MD [address] [place] [address] [address] [place] [phone] PCP - General 07/31/10 documented as of this encounter
--- OUTSIDE RECORDS SUMMARY | 2024-09-30 10:46 | XMS_ITS | Clinical Summary ---
Author Organization [facility] Address [address] [place] [address] Care Team Providers Care Junior Financial Analyst Name Role Phone Ousmanejade Dennise Whitney BRINE TANK TENDER Primary Care Provider [phone] Allergies Active Allergy Reactions Criticality Noted Date Comments Other - See Comments 09/10/2016 Indocine- senstativity Tetracyclines Headaches 09/10/2016 Sensitivity- Severe Head Ache Medications PAROXETINE HCL (PAXIL ORAL) Take 10 mg by mouth. Active LOSARTAN POTASSIUM (LOSARTAN ORAL) Take by mouth. Active FERROUS SULFATE, DRIED (IRON, DRIED, ORAL) Take by mouth. Activ e finasteride (PROSCAR) 5 mg tablet Take 1 Tab by mouth daily. 90 Tab 3 7 Active Additional Information Patient not taking.Reported on [...] Last Done Comments Hepatitis C Screen 1945 Fall Risk Screening 2010 RSV Immunization ( o r 60+ Years) (1 - 1-dose 75+ series) 02/25/2020 COVID-19 Vaccine (2023- season) 2024 Insurance Care Teams Junior Financial Analyst Relationship Specialty Start Date End Date Dennise Dewitt NP PCP - General 08/22/20
--- OUTSIDE RECORDS SUMMARY | 2024-09-30 10:46 | XMS_ITS | Encounter Summary ---
Author Organization [facility] Address [address] [place] [address] Care Team Providers Care Strap Making Machine Operator Name Role Phone Maria R Falk MD Primary Care Provider Unavailable Reason for Visit * Reason Onset Date Comments New Patient Visit 09/10/201609/10 11:30. Fax should be here 09/[address] Urogram which was done 09/05 Encounter Details Date Type Department Care Team (Late st Contact Info) Description 09/10/2016 Telephone [facility] Urology - [facility] [address] [place], [place] [id number] You Webster MD [address] [place] [id number] New Patient Visit (09/10 11:30. Fax should be here 09/[address] Urogram which was done 09/05) [...] on filedocumented in this encounter Care Teams Strap Making Machine Operator Relationship Specialty Start Date End Date Maria R Falk MD PCP - General 09/04/16 08/17/19 documented as of this encounter
--- OUTSIDE RECORDS SUMMARY | 2024-09-30 10:46 | XMS_ITS | Encounter Summary ---
Author Organization [facility] [place] [address] Care Team Providers Care Formula Mixer Name Role Phone Steph Chapin MD Primary Care Provider [phone] Encounter Details Date Type Department Care Team (Late st Contact Info) Description 06/18/2023 [place]phone [place] [phone] Elijah Temple MD [facility] [place] [address] Social History Tobacco Use Types Packs/Day Years [...] wishing to proceed with surgery again. PHONE: [phone] documented in this encounter Plan of Treatment Not on file documented as of this encounter Visit Diagnoses Not on filedocumented in this encounter Care Teams Formula Mixer Relationship Specialty Start Date End Date Steph Chapin MD [address] [place] [address] [place] [phone] PCP - General 07/31/10 documented as of this encounter
--- OUTSIDE RECORDS SUMMARY | 2024-09-30 10:46 | XMS_ITS | Encounter Summary ---
Author Organization [facility] [place] [address] Care Team Providers Care Collector Of Internal Revenue Name Role Phone Steph Chapin MD Primary Care Provider [phone] Encounter Details Date Type Department Care Team (Late st Contact Info) Description 03/21/2023 [place] [phone] Stephan Guerrero MD [facility] [place] [address] Social History Tobacco Use Types Packs/Day Years [...] on filedocumented in this encounter Care Teams Collector Of Internal Revenue Relationship Specialty Start Date End Date Steph Chapin MD [address] [place] [address] [address] [place] [address] PCP - General 07/31/10 documented as of this encounter
--- OUTSIDE RECORDS SUMMARY | 2024-09-30 10:46 | XMS_ITS | Encounter Summary ---
Author Organization [facility] [place] [address] Care Team Providers Care Burn Center Nurse Name Role Phone Steph Chapin MD Primary Care Provider [phone] Encounter Details Date Type Department Care Team (Late st Contact Info) Description 10/31/2022 Ancillary Procedure Radiology Library at [facility] [place] [phone] Steph Chapin MD [address] [place] [address] [place] [phone] Social History Tobacco Use Types Packs/Day Years [...] & Pelvis (10/31/2022 12:00 AM EST) Narrative [facility] - 11/27/2022 7:13 PM EDT This exam is auto-finalizing. It's purpose is for storage only. Steph Chapin MD IMG FILM LIBRARY ORD ERABLES [place], [place] documented in this encounter Visit Diagnoses Not on filedocumented in this encounter Care Teams Burn Center Nurse Relationship Specialty Start Date End Date Steph Chapin MD [address] [place] [address] [address] [place] [address] PCP - General 07/31/10 documented as of this encounter
--- OUTSIDE RECORDS SUMMARY | 2024-09-30 10:46 | XMS_ITS | Encounter Summary ---
Author Organization [facility] Address [address] [place] [address] Care Team Providers Care Rotary Drill Operator Helper Name Role Phone Dennise Dewitt PROMOTIONAL MARKETING AGENT Primary Care Provider [phone] Encounter Details Date Type Department Care Team [...] on filedocumented in this encounter Care Teams Rotary Drill Operator Helper Relationship Specialty Start Date End Date Dennise Dewitt NP PCP - General 08/22/20 documented as of this encounter
--- OUTSIDE RECORDS SUMMARY | 2024-09-30 10:46 | XMS_ITS | Encounter Summary ---
Author Organization [facility] Address [address] [place] [address] Care Team Providers Care Veneer Sample Maker Name Role Phone Ramses Porter MD Primary Care Provider [phone] Reason for Visit * Reason Comments Follow-up FU MRI, BPH W/Obstru ction * Referral (Urgent) - Closed Specialty Diagnoses / Procedures Referred By Contac t Referred To Contact Urology Diagnoses BPH (benign prostatic hyperplasia) Complication of catheter Dennise Dewitt NP Phone: tel: fax:[phone] You Webster MD Phone: tel: fax: Referral ID Status Reason Start Date Expiration Date Visits Re quested Visits Authorized [id number] Closed 1 1 Encounter Details Date Type Department Care Team (Late st Contact Info) Description 08/18/2019 10:30 EST Office Visit [facility] Urology - [facility] [address] [place], [place] [address] You Webster MD [address] [place] [address] Retention, urine (Primary Dx) Social History Tobacco [...] encounter Progress Notes * You Webster - 08/18/2019 1030 EST This is a [...] catheterization. He wound up switching from a 14-Solomon Islander to a 12-Solomon Islander straight catheter. This has been somewhat more [...] 1030 EST Provided patient with both 12 [place] Islander and 14 syriac coloplast coude catheters to trial. I was supervised by Dr. Webster who was present and immediately available in the office suite. SUYAPA BEAR RN 08/18/2019 16:06 documented in this encounter Plan of Treatment Not on file documented as of this encounter Visit Diagnoses Diagnosis Retention, urine- Primary Retention of urine, unspecified documented in this encounter Care Teams Veneer Sample Maker Relationship Specialty Start Date End Date Ramses Porter MD [address] [place] [address] PCP - General 08/18/19 08/21/20 documented as of this encounter
--- OUTSIDE RECORDS SUMMARY | 2024-09-30 10:46 | XMS_ITS | Encounter Summary ---
Author Organization [facility] Address [address] [place] [address] Care Team Providers Care Director Of First Impressions Name Role Phone Maria R Falk MD Primary Care Provider Unavailable Encounter Details Date Type Department Care Team (Late st Contact Info) Description 09/10/2016 Results Only Imaging [facility]- [facility] [phone] Unknown, Provider, Social History Tobacco Use Types [...] in this encounter Care Teams Director Of First Impressions Relationship Specialty Start Date End Date Maria R Falk MD PCP - General 09/04/16 08/17/19 documented as of this encounter
--- OUTSIDE RECORDS SUMMARY | 2024-09-30 10:46 | XMS_ITS | Encounter Summary ---
Author Organization [facility] Address [address] [place] [address] Care Team Providers Care Intelligence Operations Specialist Name Role Phone Ramses Porter MD Primary Care Provider [phone] Dennise Dewitt NP Primary Care Provider [phone] Encounter Details Date Type Department Care Team (Late st Contact Info) Description 08/10/2020 Lab Requisition [facility] Pathology & Laboratory Medicine - [facility] [address] [place] [address] Outr Resulting Lab, Provider Social History Tobacco [...] 0.0 - 6.5 ng/mL 08/10/2020 19:09 EST [facility] Blood VENOUS BLOOD / Unknown 08/09/2020 11:00 EST 08/10/2020 17:53 EST Narrative [facility] - 08/10/2020 19:09 EST NOTE: Serum PSA concentration should not be interpreted as absolute evidence for the presence or absence of malignant disease. Assayed on [employer] XPT using chemiluminescent technology.??Values obtained by using different assay methods cannot be used interchangeably. us Provider Outr Resulting Lab CHEMISTRY & BLOOD GA S ORDERABLES Final Result [facility] [address] [place] [address] documented in this encounter Visit Diagnoses Not on filedocumented in this encounter Care Teams Intelligence Operations Specialist Relationship Specialty Start Date End Date Ramses Porter MD [address] [place] [address] PCP - General 08/18/19 08/21/20 Dennise Dewitt NP [address] [place] [address] PCP - General 08/22/20 documented as of this encounter
--- OUTSIDE RECORDS SUMMARY | 2024-09-30 10:46 | XMS_ITS | Encounter Summary ---
[place] [address] Care Team Providers Care Automotive Leasing Sales Representative Name Role Phone Steph Chapin MD Primary Care Provider [phone] Reason for Referral * Diagnostic Test (Routine) - Closed Specialty Diagnoses / Procedures Referred By Zion wright Referred To Contact Radiology Diagnoses Hydronephrosis, unspecified hydronephrosis type Hematuria, unspecified type Procedures CT Urogram Stephan Guerrero MD [facility] [place] [address] [facility] [place] [address] Referral ID Status Reason Start Date Expiration Date V isits Requested Visits Authorized [id number] Closed Specialty Service Requested 01/13/2023 07/16/2024 1 1 Encounter Details Date Type Department Care Team (Late st Contact Info) Description 01/13/2023 [place] [address] Stephan Guerrero MD [facility] [place] [address] Hydronephrosis, unspecified hydronephrosis type; Hematuria, [...] who have questions please contact the health nursing care attendant that requested your imaging first. ? Narrative [...] patients who have questions please contactthe health nursing care attendant that requested your imaging first. Stephan Guerrero MD IMG CT ORDERABLES documented in this encounter Visit Diagnoses Diagnosis Hydronephrosis, unspecified hydronephrosis type Hematuria, unspecified type Hydronephrosis, unspecified hydronephrosis type Hematuria, unspecified type documented in this encounter Care Teams Automotive Leasing Sales Representative Relationship Specialty Start Date End Date Steph Chapin MD [address] [place] [address] [place] [address] PCP - General 07/31/10 documented as of this encounter
--- OUTSIDE RECORDS SUMMARY | 2024-09-30 10:46 | XMS_ITS | Encounter Summary ---
Author Organization [facility] [place] [address] Care Team Providers Care Burrer Operator Name Role Phone Steph Chapin MD Primary Care Provider [phone] Encounter Details Date Type Department Care Team (Late st Contact Info) Description 09/27/2011 Telephone [place] [phone] Myron Stiles MD [facility] DR OPHTHALM[place] [address] Social History Tobacco Use Types Packs/Day Years [...] on filedocumented in this encounter Care Teams Burrer Operator Relationship Specialty Start Date End Date Steph Chapin MD [address] [place] [address] [address] [place] [phone] PCP - General 07/31/10 documented as of this encounter
--- OUTSIDE RECORDS SUMMARY | 2024-09-30 10:46 | XMS_ITS | Encounter Summary ---
[place] [address] Care Team Providers Care Chorus Master Name Role Phone Steph Chapin MD Primary Care Provider [phone] Encounter Details Date Type Department Care Team (Latest Contact Info) Description 01/30/2023 12:50 PM EDT Laboratory Appointment Lab [address] [place] [phone] Hematuria, unspecified type Social History Tobacco Use [...] Procedure Name Priority Date/Time Associated Diagnosis Comments CREATININE Routine 01/30/2023 1:13 PM EDT Hematuria, unspecified type documented in this encounter Results * (ABNORMAL) Creatinine (01/30/2023 1:13 PM EDT) Creatinine 1.39 0.80 - 1.50 mg/dL [facility] Est Glomerular Filtration Rate 52(L) >=60 mL/min/1. 73 m?? [facility] Comment: This patient's estimated GFR was [...] In Lab Stephan Guerrero MD CHEMISTRY ORDERABLES [facility] [place] [address] documented in this encounter Visit Diagnoses Diagnosis Hematuria, unspecified type documented in this encounter Care Teams Chorus Master Relationship Specialty Start Date End Date Steph Chapin MD [address] [place] [address] [place] [phone] PCP - General 07/31/10 documented as of this encounter
--- OUTSIDE RECORDS SUMMARY | 2024-09-30 10:46 | XMS_ITS | Encounter Summary ---
Author Organization [facility] [place] [address] Care Team Providers Care Film Producer Name Role Phone Steph Chapin MD Primary Care Provider [phone] Reason for Visit * Reason Onset Date Comments Eye Problem 09/27/2011 Encounter Details Date Type Department Care Team (Late st Contact Info) Description 09/27/2011 [place] [phone] Myron Stiles MD [facility] DR OPHTHALMOLOGY [place] [address] Eye Problem Social History Tobacco Use Types [...] on filedocumented in this encounter Care Teams Film Producer Relationship Specialty Start Date End Date Steph Chapin MD [address] [place] [address] [address] [place] [phone] PCP - General 07/31/10 documented as of this encounter
--- OUTSIDE RECORDS SUMMARY | 2024-09-30 10:46 | XMS_ITS | Clinical Summary ---
Author Organization [facility] [place] [address] Care Team Providers Care Silviculture Teacher Name Role Phone Steph Chapin MD Primary Care Provider [phone] Allergies Active Allergy Reactions Criticality Noted Date [...] Last Done Comments Hepatitis C Screening 1963 Tetanus/Diphtheria/Pertussis Vaccines (1 - Tdap) 02/24 Pneumoccocal Vaccine: 50+ (1 of 1 - PCV) 1995 Zoster vaccine (1 of 2) 1995 Advance Directive 02/25/2000 RSV Vaccine (1 - 1-dose 75+ series) 02/25/2020 Covid-19 Vaccine (1 - 2023- season) 2024 Influenza (Flu) vaccine (1 o f 1 - Influenza standard series) 05/09/2024 06/28/2008 Care Teams Silviculture Teacher Relationship Specialty Start Date End Date Steph Chapin MD [address] [place] [address] [address] [place] [phone] PCP - General 07/31/10
--- OUTSIDE RECORDS SUMMARY | 2024-09-30 10:46 | XMS_ITS | Referral Summary ---
Author Organization [facility] Address [address] [place] [address] Care Team Providers Care Chorus Dancer Name Role Phone Ousmanejade Dennise Chelo BANKING MANAGER Primary Care Provider [phone] Allergies Active Allergy Reactions Criticality Noted Date [...] Sexual Orientation Not on file Functional Status * Because of a physical, mental, or emotional condition, does this person have difficulty doing errands alone such as visiting a doctor's office or shopping? Answer Date of Assessment Author No 09/10/2016 11:21 EST Mental Status * Because of a physical, mental, or emotional condition, does this person have serious difficulty concentrating, remembering, or making decisions? Answer Entry Date Author No 09/10/2016 11:21 EST Plan of Treatment Not on file Insurance MEDICARE Care Teams Chorus Dancer Relationship Specialty Start Date End Date Dennise Dewitt NP PCP - General 08/22/20
--- OUTSIDE RECORDS SUMMARY | 2024-09-30 10:46 | XMS_ITS | Encounter Summary ---
[place] [address] Care Team Providers Care Machine Assistant Name Role Phone Steph Chapin MD Primary Care Provider [phone] Encounter Details Date Type Department Care Team (Late st Contact Info) Description 01/28/2023 Orders [place] [id number] Rosanna Portillo RN Hydronephrosis, unspecified hydronephrosis type; [...] EDT) Creatinine 1.39 0.80 - 1.50 mg/dL [facility] Est Glomerular Filtration Rate 52(L) >=60 mL/min/1. 73 m?? [facility] Comment: This patient's estimated GFR was [...] In Lab Stephan Guerrero MD CHEMISTRY ORDERABLES Performing Organization Address City/State/[facility] Co de Phone Number [facility] [place] [address] documented in this encounter Visit Diagnoses Diagnosis Hydronephrosis, unspecified hydronephrosis type Hematuria, unspecified type documented in this encounter Care Teams Machine Assistant Relationship Specialty Start Date End Date Steph Chapin MD [address] [place] [address] [address] [place] [address] PCP - General 07/31/10 documented as of this encounter
--- OUTSIDE RECORDS SUMMARY | 2024-09-30 10:46 | XMS_ITS | Encounter Summary ---
Author Organization [facility] Address [address] [place] [address] Care Team Providers Care Economic Research Assistant Name Role Phone Ramses Porter MD Primary Care Provider [phone] Encounter Details Date Type Department Care Team (Late st Contact Info) Description 05/30/2020 Orders Only [facility] Radiology - Main [place] [address] [place] [address] Stevie Rivera MD [facility] [place] [facility] [address] Social History Tobacco Use Types Packs/Day Years [...] on filedocumented in this encounter Care Teams Economic Research Assistant Relationship Specialty Start Date End Date Ramses Porter MD [address] [place] [address] PCP - General 08/18/19 08/21/20 documented as of this encounter
--- OUTSIDE RECORDS SUMMARY | 2024-09-30 10:46 | XMS_ITS | Encounter Summary ---
Author Organization [facility] Address [address] [place] [address] Care Team Providers Care Insecticide Maker Name Role Phone Ousmanejade Dennise Chelo TUBE TRAILER FILLER Primary Care Provider [phone] Encounter Details Date Type Department Care Team (Late st Contact Info) Description 03/31/2024 Lab Requisition [facility] Pathology & Laboratory Medicine - [facility] [address] [place] [address] Outr Resulting Lab, Provider Social History Tobacco [...] Procedure Name Priority Date/Time Associated Diagnosis Comments URINE MONOCLONAL PROTEIN STUDY (UPEP WITH IMMUNOTYPING) PERFORMABLE Today 03/30/2024 8:35 EDT PROTEIN, TOTAL, RANDOM, URINE Today 03/30/2024 8:35 EDT URINE MONOCLONAL PROTEIN STUDY (UPEP WITH IMMUNOTYPING) Routine 03/30/2024 8:35 EDT documented in this encounter Results * URINE MONOCLONAL PROTEIN STUDY (UPEP WITH IMMUNOTYPING) PERFORMABLE (03/30/2024 8:35 EDT) Albumin, Urine % 15.8 N/A % 04/01/20 14:55 EDT [facility] Albumin, Urine mg/dL 102 mg/dL 04/01/2024 14:55 EDT [facility] Globulins, Urine % 84.2 N/A % 04/01/2024 14:55 EDT [facility] Globulins, Urine mg/dL 546 mg/dL 04/01/2024 14:55 T [facility] UPEP Comment See Comment 04/01/2024 14:55 T [facility] Comment:Electrophoresis scre ening performed; Immunotyping to follow. ??See scanned/supplementary report. Immunotyping, Urine Current Interpretatio n: Negative for free monoclonal light chains. Reviewed by: Jonathan Plummer MD 04/01/2024 1422 04/01/2024 14:55 EDT [facility] Total Protein, Urine 648 See Note mg/dL 04/01/2024 14:55 T [facility] Comment: NOTE: Reference range has not been established for total protein concentration in random urine specimens. Urine URINE / Unknown 03/30/2024 8 :35 EDT 03/31/2024 17:26 EDT us Provider Outr Resulting Lab URINALYSIS ORDERABLE S Final Result [facility] [address] [place], [place] [address] * PROTEIN, TOTAL, RANDOM, URINE (03/30/2024 8:35 EDT) Urine URINE / Unknown 03/30/2024 8 :35 EDT 03/31/2024 17:26 EDT us Provider Outr Resulting Lab URINALYSIS ORDERABLE S Final Result [facility] [address] [place] [id number] documented in this encounter Visit Diagnoses Not on filedocumented in this encounter Care Teams Insecticide Maker Relationship Specialty Start Date End Date Dennise Dewitt NP PCP - General 08/22/20 documented as of this encounter
--- OUTSIDE RECORDS SUMMARY | 2024-09-30 10:46 | XMS_ITS | Encounter Summary ---
Author Organization [facility] [place] [address] Care Team Providers Care Certified Medical Technician Name Role Phone Steph Chapin MD Primary Care Provider [phone] Encounter Details Date Type Department Care Team (Late st Contact Info) Description 08/25/2023 1:00 PM EST [place] [address] Elijah Temple MD [facility] [place] [address] BPH with obstruction/lower urinary tract symptoms Social [...] (LUTS) documented in this encounter Care Teams Certified Medical Technician Relationship Specialty Start Date End Date Steph Chapin MD [address] [place] [address] [address] [place] [address] PCP - General 07/31/10 documented as of this encounter
--- OUTSIDE RECORDS SUMMARY | 2024-09-30 10:46 | XMS_ITS | Encounter Summary ---
Author Organization [facility] Address [address] [place] [address] Care Team Providers Care Miner Name Role Phone Ramses Porter MD Primary Care Provider [phone] Reason for Referral * Radiology Services (Routine) - Closed Specialty Diagnoses / Procedures [facility] Referred To Contact Radiology Diagnoses Elevated PSA Benign prostatic hyperplasia with nocturia Procedures MR PROSTATE W WO CONTRAST Cristi Carrera MD Phone: tel: fax: Referral ID Status Reason Start Date Expiration Date Visits Re quested Visits Authorized [id number] Closed 08/13/2020 02/09/2021 1 1 Reason for Visit * Reason Comments Follow-up Encounter Details Date Type Department Care Team (Late st Contact Info) Description 05/29/2020 11:30 EDT Office Visit [facility] Urology - [address] [address] Cristi Carrera MD [address] [facility], [address] [place] [phone] Elevated PSA (Primary Dx); Benign prostatic hyperplasia [...] updated in PRISM 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 Cristi Carrera MD IMG MRI ORDERABLES Final Result documented in this encounter Visit Diagnoses Diagnosis Elevated PSA- Primary Elevated prostate specific antigen (PSA) Benign prostatic hyperplasia with nocturia Elevated PSA Elevated prostate specific antigen (PSA) Benign prostatic hyperplasia with nocturia documented in this encounter Historical Medications * This list may reflect changes made after this encounter. calcium carbonate-mag hydroxid 1,000-200 mg tablet,chewable Take by mouth daily. added in this encounter Care Teams Miner Relationship Specialty Start Date End Date Ramses Porter MD [address] [place] [address] PCP - General 08/18/19 08/21/20 documented as of this encounter
--- OUTSIDE RECORDS SUMMARY | 2024-09-30 10:46 | XMS_ITS | Encounter Summary ---
Author Organization [place] [address] Care Team Providers Care Manager Truck Name Role Phone Steph Chapin MD Primary Care Provider [phone] Reason for Visit * Reason Comments Spots and/or Floaters floaters OD Encounter Details Date Type Department Care Team (Late st Contact Info) Description 09/30/2011 9:00 AM EST Office [place] [address] Chelsey Dave MD Retinal defect, right (Primary Dx) Discharge Disposition: [...] unspecified documented in this encounter Care Teams Manager Truck Relationship Specialty Start Date End Date Steph Chapin MD [address] [place] [address] [address] [place] [address] PCP - General 07/31/10 documented as of this encounter
--- OUTSIDE RECORDS SUMMARY | 2024-09-30 10:46 | XMS_ITS | Encounter Summary ---
[place] [address] Care Team Providers Care Territory Development Manager Name Role Phone Steph Chaipn MD Primary Care Provider [phone] Encounter Details Date Type Department Care Team [...] on filedocumented in this encounter Care Teams Territory Development Manager Relationship Specialty Start Date End Date Steph Chapin MD [address] [place] [address] [place] [address] PCP - General 07/31/10 documented as of this encounter
--- OUTSIDE RECORDS SUMMARY | 2024-09-30 10:46 | XMS_ITS | Encounter Summary ---
Author Organization [facility] Address [address] [place] [address] Care Team Providers Care Adjunct History Instructor Name Role Phone Unknown, Provider Primary Care Provider Unava ilable Encounter Details Date Type Department Care Team (Late st Contact Info) Description 08/26/2016 Results Only [facility] [phone] Maria R Falk MD Social History Tobacco [...] ? CHRISTIANO CORONEL ? Accession #: ? [id number] : ? 1945 (Age: 71) ??M ?Collect [...] cellular enhancement technique. ? End of Report [facility] 08/26/2016 08/27/2016 11: 52 EST us Maria Rmatthew Falk MD PATHOLOGY ORDERABLES Fi nal Result [facility] [address] [place] [address] documented in this encounter Visit Diagnoses Not on filedocumented in this encounter Care Teams Adjunct History Instructor Relationship Specialty Start Date End Date Unknown, Provider, PCP - General 08/26/16 09/03/16 documented as of this encounter
--- OUTSIDE RECORDS SUMMARY | 2024-09-30 10:46 | XMS_ITS | Encounter Summary ---
[place] [address] Care Team Providers Care Fbi Special Agent Name Role Phone Steph Chapin MD Primary Care Provider [phone] Encounter Details Date Type Department Care Team [...] on filedocumented in this encounter Care Teams Fbi Special Agent Relationship Specialty Start Date End Date Steph Chapin MD [address] [place] [address] [place] [address] PCP - General 07/31/10 documented as of this encounter
--- OUTSIDE RECORDS SUMMARY | 2024-09-30 10:46 | XMS_ITS | Encounter Summary ---
Author Organization [facility] Address [facility] [place] [address] Care Team Providers Care Summer Child Caregiver Name Role Phone Steph Chapin MD Primary Care Provider [phone] Reason for Visit * Reason Comments Post Op s/p laser to tear OD on 09/17/11,no flashes or floaters since here Encounter Details Date Type Department Care Team (Late st Contact Info) Description 09/23/2011 2:00 PM EST [place] [address] Demar Kerns MD [facility] [place] [address] Posterior vitreous detachment, right eye with vitreous [...] Eldridge. Mr. Coronel can be reached at [phone]. Respectfully, CC: Steph Chapin MD Family Medicine [address] [place] [address] Ender [place] MD Ophthalmology [address] [place] [address], [facility] [address] [place] [address] documented in this encounter Nursing Notes * [...] detachment documented in this encounter Care Teams Summer Child Caregiver Relationship Specialty Start Date End Date Steph Chapin MD [address] [place] [address] [address] [place] [address] PCP - General 07/31/10 documented as of this encounter
--- OUTSIDE RECORDS SUMMARY | 2024-09-30 10:47 | XMS_ITS | Encounter Summary ---
Author Organization [facility] [place] [address] Care Team Providers Care Exerciser Horse Name Role Phone Steph Chapin MD Primary Care Provider [phone] Encounter Details Date Type Department Care Team (Late st Contact Info) Description 08/07/2009 [place] [address] Lino Young MD [facility] [place] [address] Social History Tobacco Use Types Packs/Day Years [...] 11:03 AM EST) Surgical Pathology Report [id number] ? Location: 3K The signing pathologist has [...] EST Lino Young MD PATHOLOGY/CYTOLOGY O RDERABLES [facility] documented in this encounter Visit Diagnoses Not on filedocumented in this encounter Care Teams Exerciser Horse Relationship Specialty Start Date End Date Steph Chapin MD [address] [place] [address] [address] [place] [address] PCP - General 07/31/10 07/31/10 documented as of this encounter
--- OUTSIDE RECORDS SUMMARY | 2024-09-30 10:47 | XMS_ITS | Encounter Summary ---
Author Organization [facility] [place] [address] Care Team Providers Care Assistant Plant Manager Name Role Phone Steph Chapin MD Primary Care Provider [phone] Encounter Details Date Type Department Care Team (Late st Contact Info) Description 04/02/2004 [place] [phone] Alfa Dobbs MD UROLOGY Social History Tobacco [...] Procedure Name Priority Date/Time Associated Diagnosis Comments NON-NITRIC ACID CONCENTRATOR OPERATOR FINAL REPORT Routine 04/02/2004 1:11 PM EDT documented in this encounter Results * Non-Food Cart Attendant Final Report (04/02/2004 1:11 PM EDT) Non-Food Cart Attendant Final Report [id number] ? Location: The signing pathologist has (i) examined the relevant preparation(s) for the specimen(s) and (ii) rendered or confirmed the diagnosis(es). . ? Pathology Non-Food Cart Attendant Cytology Final Report Clinical Information Specimen Source: [...] on filedocumented in this encounter Care Teams Assistant Plant Manager Relationship Specialty Start Date End Date Steph Chapin MD [address] [place] [address] [place] [address] PCP - General 07/31/10 07/31/10 documented as of this encounter
--- OUTSIDE RECORDS SUMMARY | 2024-09-30 10:47 | XMS_ITS | Encounter Summary ---
Author Organization [facility] [place] [address] Care Team Providers Care Manager Servicing Name Role Phone Steph Chapin MD Primary Care Provider [phone] Reason for Visit * Reason Onset Date Comments Eye Problem 09/10/2011 right vitreous h emmorage right eye( happened on 09/06/11) Encounter Details Date Type Department Care Team (Late st Contact Info) Description 09/10/2011 Telephone [place] [address] Demar Kerns MD [facility] [place] [address] Eye Problem (right vitreous hemmorage right eye( [...] jackson when the appt is booked At [phone] ask for didi or leno documented in this encounter Plan of Treatment Not on file documented as of this encounter Visit Diagnoses Not on filedocumented in this encounter Care Teams Manager Servicing Relationship Specialty Start Date End Date Steph Chapin MD [address] [place] [address] [address] [place] [address] PCP - General 07/31/10 documented as of this encounter
--- OUTSIDE RECORDS SUMMARY | 2024-09-30 10:47 | XMS_ITS | Encounter Summary ---
Author Organization [facility] [place] [address] Care Team Providers Care Air Pumper Name Role Phone Steph Chapin MD Primary Care Provider [phone] Encounter Details Date Type Department Care Team (Late st Contact Info) Description 06/29/2009 [place] [phone] Fifi Salcido PA [address] [place] [address] Social History Tobacco Use Types Packs/Day Years Used Date Smoking Tobacco: Never Assessed Sex and Gender Information Value Date Recorded Sex Assigned at Not on file Gender Identity Not on file Sexual Orientation Not on file documented as of this encounter Plan of Treatment Not on file documented as of this encounter Procedures Procedure Name Priority Date/Time Associated Diagnosis Comments NON-FEDERAL LAW CLERK FINAL REPORT Routine 06/29/2009 2:47 PM EDT documented in this encounter Results * Non-Talent Program Manager Final Report (06/29/2009 2:47 PM EDT) Non-Talent Program Manager Final Report [id number] ? Location: 5B The signing pathologist has (i) examined the relevant preparation(s) for the specimen(s) and (ii) rendered or confirmed the diagnosis(es). . ? Pathology Non-Talent Program Manager Cytology Final Report Clinical Information Specimen Source: ?Urine, Catheter: straight cath. Clinical History/Impressio n: ?? Hematuria. Gross Description: ?? Received ??in 50% ETOH, ??approximately 60 ml. total volume of ?? cloudy, yellow fluid. ?? Total Preparation: Liquid Based Prep 1. Interpretation Specimen submitted is satisfactory. Diagnosis Negative for Malignancy 06/30/09 ?Screened by: ? SQA ?Rescreened by: ?? ETL ANALYST DEVELOPER 06/30/09 ?Verified by: ? Ellis AVELAR, Norma ? Pathologist ? (Electronic Signature) Comment Numerous degenerated white blood cells, rare urothelial cells and red blood cells are present. HEBER PEREZ 06/29/2009 2:47 PM EDT Fifi MACIAS PATHOLOGY/CYTOLOGY O RDERABLES HEBER PEREZ documented in this encounter Visit Diagnoses Not on filedocumented in this encounter Care Teams Air Pumper Relationship Specialty Start Date End Date Steph Chapin MD [address] [place] [address] [address] [place] [address] PCP - General 07/31/10 07/31/10 documented as of this encounter
--- OUTSIDE RECORDS SUMMARY | 2024-09-30 10:47 | XMS_ITS | Encounter Summary ---
[place] [address] Care Team Providers Care Turn Machine Operator Name Role Phone Steph Chapin MD Primary Care Provider [phone] Encounter Details Date Type Department Care Team (Late st Contact Info) Description 09/23/2003 [place] [phone] Alfa Dobbs MD UROLOGY Social History Tobacco [...] 10:17 AM EST) Surgical Pathology Report [id number] ? Location: The signing pathologist has (i) [...] stroma with focal atrophy. See ??Comment. 09/26/03 VEGETABLES COOK 09/27/03 Verified by: ? Norma Corral MD [...] B-1 with focal prostatitis. [facility] 09/23/2003 10:1 7 AM EST Alfa Dobbs MD PATHOLOGY/CYTOLOGY O RDERABLES [facility] documented in this encounter Visit Diagnoses Not on filedocumented in this encounter Care Teams Turn Machine Operator Relationship Specialty Start Date End Date Steph Chapin MD [address] [place] [address] [address] [place] [address] PCP - General 07/31/10 07/31/10 documented as of this encounter
--- OUTSIDE RECORDS SUMMARY | 2024-09-30 10:47 | XMS_ITS | Encounter Summary ---
Author Organization [facility] [place] [address] Care Team Providers Care Fiscal Agent Name Role Phone Steph Chapin MD Primary Care Provider [phone] Encounter Details Date Type Department Care Team (Late st Contact Info) Description 09/24/2006 [place] [phone] Alfa Dobbs MD UROLOGY Social History Tobacco [...] Procedure Name Priority Date/Time Associated Diagnosis Comments NON-ORTHOTIST PROSTHETIST FINAL REPORT Routine 09/24/2006 2:49 PM EST documented in this encounter Results * Non-Furnace Installer Helper Final Report (09/24/2006 2:49 PM EST) Non-Furnace Installer Helper Final Report [id number] ? Location: The signing pathologist has (i) examined the relevant preparation(s) for the specimen(s) and (ii) rendered or confirmed the diagnosis(es). . ? Pathology Non-Furnace Installer Helper Cytology Final Report Clinical Information Specimen Source: [...] on filedocumented in this encounter Care Teams Fiscal Agent Relationship Specialty Start Date End Date Steph Chapin MD [address] [place] [address] [place] [phone] PCP - General 07/31/10 07/31/10 documented as of this encounter
--- OUTSIDE RECORDS SUMMARY | 2024-09-30 10:47 | XMS_ITS | Encounter Summary ---
Author Organization [facility] [place] [address] Care Team Providers Care Corporate Officer Name Role Phone Steph Chapin MD Primary Care Provider [phone] Encounter Details Date Type Department Care Team (Late st Contact Info) Description 06/28/2008 Orders [place] [address] Lino Lainez MD Social History Tobacco Use Types Packs/Day Years Used Date Smoking Tobacco: Never Assessed Sex and Gender Information Value Date Recorded Sex Assigned at Not on file Gender Identity Not on file Sexual Orientation Not on file documented as of this encounter Plan of Treatment Not on file documented as of this encounter Procedures Procedure Name Priority Date/Time Associated Diagnosis Comments NON-TRAFFIC ANALYST FINAL REPORT Routine 06/28/2008 3:51 PM EDT documented in this encounter Results * Non-Piano Mechanic Final Report (06/28/2008 3:51 PM EDT) Non-Piano Mechanic Final Report [id number] ? Location: The signing pathologist has (i) examined the relevant preparation(s) for the specimen(s) and (ii) rendered or confirmed the diagnosis(es). . ? Pathology Non-Piano Mechanic Cytology Final Report Clinical Information Specimen Source: [...] EDT Lino Lainez MD PATHOLOGY/CYTOLOGY O RDERABLES HEBER PEREZ documented in this encounter Visit Diagnoses Not on filedocumented in this encounter Care Teams Corporate Officer Relationship Specialty Start Date End Date Steph Chapin MD [address] [place] [address] [address] [place] [address] PCP - General 07/31/10 07/31/10 documented as of this encounter
[2024-09-30 19:28] LABS: HCT 38.4 % (40.0-50.0); HGB 12.6 g/dL (13.5-17.5); MCH 26.3 pg (27.0-33.0); MCHC 32.8 % (32.0-36.0); MCV 80 fL (80-95); Platelet Count 236 10^3/uL (130-400); RBC 4.79 10^6/uL (4.36-5.78); RDW 15.8 % (11.8-14.1); RDW-SD 45.8 fL; WBC 6.54 10^3/uL (4.4-10.8)
[2024-09-30 19:33] LABS: Anion Gap 5.6 mmol/L (3-11); BUN 33 mg/dL (7-18); CO2 28.4 mmol/L (21.0-32.0); CREATININE 1.4 mg/dL (0.70-1.30); Calcium 8.7 mg/dL (8.5-10.1); Chloride 106 mmol/L (98-107); Estimated GFR 51.13 (mL/min/1.73m2); Glucose 116 mg/dL (74-106); Potassium 4.6 mmol/L (3.5-5.1); Sodium 140 mmol/L (136-145)
== END 2024-09-30 10:31 | disposition home or self-care (01) ==
LOC: NCHCN 10:30
PROVIDERS: PCP Physician Assistant; Visit Provider Physician Assistant
DX: N18.9 Chronic kidney disease, unspecified (principal)
CPT/HCPCS: 80048; 85027

== ENCOUNTER 2025-03-30 13:55 | Outpatient (REF) | payer MEDICARE, SELFPAY ==
[2025-03-30 21:12] LABS: ALT 25 U/L (16-63); AST 23 U/L (15-37); Albumin 3.5 g/dL (3.4-5.0); Alkaline Phosphatase 66 U/L (46-116); Anion Gap 3.9 mmol/L (3-11); BUN 26 mg/dL (7-18); Bilirubin, Total 0.5 mg/dL (0.2-1.0); CO2 30.1 mmol/L (21.0-32.0); Calcium 9.1 mg/dL (8.5-10.1); Chloride 106 mmol/L (98-107); Estimated GFR 55.53 (mL/min/1.73m2); Glucose 134 mg/dL (74-106); Potassium 5.5 mmol/L (3.5-5.1); Sodium 140 mmol/L (136-145); Total Protein 6.6 g/dL (6.4-8.2)
== END 2025-03-30 13:56 | disposition home or self-care (01) ==
LOC: NCHCN 13:55
PROVIDERS: PCP Physician Assistant; Visit Provider Physician Assistant
DX: N18.9 Chronic kidney disease, unspecified (principal)
CPT/HCPCS: 80053

== ENCOUNTER 2025-05-04 15:38 | Outpatient (REF) | payer MEDICARE, SELFPAY ==
[2025-05-04 20:55] LABS: Anion Gap 7.6 mmol/L (3-11); BUN 31 mg/dL (7-18); CO2 29.4 mmol/L (21.0-32.0); Calcium 9.3 mg/dL (8.5-10.1); Chloride 105 mmol/L (98-107); Estimated GFR 46.77 (mL/min/1.73m2); Glucose 76 mg/dL (74-106); Potassium 4.2 mmol/L (3.5-5.1); Sodium 142 mmol/L (136-145)
== END 2025-05-04 15:39 | disposition home or self-care (01) ==
LOC: NCHCN 15:38
PROVIDERS: PCP Physician Assistant; Visit Provider Physician Assistant
DX: I10 Essential (primary) hypertension (principal)
CPT/HCPCS: 80048